=== PATIENT | male | born 1950 | race Hispanic/Latino ===

== ENCOUNTER → 2018-11-19 | Outpatient (CLI) | payer MEDICARE ==
[~2018-11-19] MED LIST: BRIMONIDINE TARTRATE OU; LATANOPROST OU; LISI40TA4 PO; METF-444 PO; SIMV40TA59 PO; TAMS0.4C32 PO; TIMOLOL MALEATE OU
== END | disposition home or self-care (01) ==
LOC: SHCH 10:23
PROVIDERS: ATTEND Internal Medicine Cardiovascular Disease
DX: I11.9 Hypertensive heart disease without heart failure (principal)
CPT/HCPCS: 93306

== ENCOUNTER 2022-11-20 16:45 | Emergency (ER) | payer MEDICARE, OTHER ==
[~2022-11-20] VITALS: Ht 180.3 cm; Wt 81.2 kg
[~2022-11-20 16:45] MED LIST changes: -LISI40TA4 PO; +LISI40TA9 PO
[2022-11-20 17:06] VITALS: BP 147/83
[2022-11-20] MEDS ORDERED: IBUP-2070 PO (19:48)
== END 2022-11-20 19:55 | disposition home or self-care (01) ==
LOC: EDH 16:45
DX: S01.81XA Laceration without foreign body of other part of head, initial encounter (principal); I10 Essential (primary) hypertension; E78.00 Pure hypercholesterolemia, unspecified; K21.9 Gastro-esophageal reflux disease without esophagitis; G20 Parkinson's disease; Z79.84 Long term (current) use of oral hypoglycemic drugs; Z79.899 Other long term (current) drug therapy; Z04.3 Encounter for examination and observation following other accident; Z98.890 Other specified postprocedural states; W18.39XA Other fall on same level, initial encounter; Y93.89 Activity, other specified; Y92.89 Other specified places as the place of occurrence of the external cause; Y99.8 Other external cause status
CPT/HCPCS: 12014; 70450; 72125

== ENCOUNTER 2022-12-27 09:27 | Emergency (ER) | payer OTHER ==
[~2022-12-27] VITALS: Ht 185.4 cm; Wt 80.7 kg
[~2022-12-27 09:27] MED LIST changes: +IBUP-2070 PO
[2022-12-27 10:19] VITALS: BP 138/62
[2022-12-27] MEDS ORDERED: OCTYL 2-CYANOACRYLATE 1 EACH TP SCH (10:30)
== END 2022-12-27 11:01 | disposition home or self-care (01) ==
LOC: EDH 09:27
DX: S01.81XA Laceration without foreign body of other part of head, initial encounter (principal); K21.9 Gastro-esophageal reflux disease without esophagitis; Y92.89 Other specified places as the place of occurrence of the external cause; E78.00 Pure hypercholesterolemia, unspecified; I10 Essential (primary) hypertension; Z79.84 Long term (current) use of oral hypoglycemic drugs; Z79.899 Other long term (current) drug therapy; W01.10XA Fall on same level from slipping, tripping and stumbling with subsequent striking against unspecified object, initial encounter; Y93.89 Activity, other specified; Y99.8 Other external cause status
CPT/HCPCS: 12013; 70450; 70486; 72125

== ENCOUNTER 2024-10-11 09:28 | Inpatient (IN) | payer OTHER ==
[~2024-10-11] VITALS: Ht 180.3 cm; Wt 73.2 kg
--- NOTE | 2024-10-11 09:52 | EKG ---
[facility] Test Date: 2024-10-11 Test Time: 09:41:07 Pat Name: JUNIOR MELLO Department: [facility] Room: ED Gender: M [employer]: [id number] : 1950 Requested By: RAJ AGUIRRE Order Number: [id number] Reading MD: Guido Dudley Measurements Intervals [place] Rate: 63 P: 30 [place]: 189 QRS: 3 QRSD: 108 T: 37 QT: 439 QTc: 452 Interpretive Statements Sinus rhythm Probable left ventricular hypertrophy Compared to ECG 07/17/2015 15:09:44 No significant changes Electronically Signed On 10-12-2024 12:47:17 CRUISE DIRECTOR by Guido Dudley Please click the below link to view image of tracing.
[2024-10-11 10:04] LABS: BASOPHILS # (AUTO) 0.05 K/uL (0.00-0.20); BASOPHILS % (AUTO) 0.2 % (0.0-5.0); HEMATOCRIT 46.9 % (42-54); IMMATURE GRANULOCYTE ABSOLUTE 0.19 K/uL (0-1); LYMPHOCYTES # (AUTO) 0.9 K/uL (1.0-4.8); LYMPHOCYTES % (AUTO) 3.6 % (21.0-51.0); MEAN CORPUSCULAR HEMOGLOBIN 32.4 pg (27.0-33.0); MEAN CORPUSCULAR HGB CONC 34.8 g/dL (32.0-36.0); MEAN CORPUSCULAR VOLUME 93.2 fL (79-99); MONOCYTES # (AUTO) 1.5 K/uL (0.1-1.0); MONOCYTES % (AUTO) 6.1 % (3.0-13.0); NEUTROPHILS # (AUTO) 21.7 K/uL (1.8-7.7); NEUTROPHILS % (AUTO) 89.3 % (40.0-77.0); PLATELET COUNT (AUTO) 183 K/uL (130-400); RED BLOOD CELL COUNT(AUTO) 5.03 MIL/uL (4.50-6.20); RED CELL DISTRIBUTION WIDTH 12.7 % (11.0-15.5); WHITE BLOOD COUNT (AUTO) 24.3 K/uL (4.8-10.8)
[2024-10-11 10:12] LABS: INR 1.29 (0.85-1.15); PROTHROMBIN TIME 13.3 SEC (9.6-11.6)
[2024-10-11 10:14] LABS: PARTIAL THROMBOPLASTIN TIME 30.5 SEC (26.3-35.5)
[2024-10-11 10:16] LABS: CREATININE 0.9 mg/dL (0.5-1.3); POTASSIUM 3.8 mmol/L (3.5-5.1)
[2024-10-11 10:33] LABS: B-TYPE NATRIURETIC PEPTIDE 124 pg/mL (0-100)
[2024-10-11 10:36] LABS: MAGNESIUM 2.1 mg/dL (1.80-2.40)
[2024-10-11 10:38] LABS: BAND NEUTROPHILS % (MANUAL) 19 % (0-2); LYMPHOCYTES % (MANUAL) 5 % (22-44); MAN.DIFF COMMENT-IMPRESSION MANUAL DIFFERENTIAL; MONOCYTES % (MANUAL) 3 % (2-9); PLATELET MORPHOLOGY COMMENT ADEQUATE; SEGMENTED NEUTROPHILS % 73 % (40-70); TOTAL CELLS COUNTED 100; WBC MORPHOLOGY CONSISTENT W/DIFF
[2024-10-11 10:48] LABS: ADD UA MICROSCOPIC YES; APPEARANCE,URINE HAZY (CLEAR); BILIRUBIN,URINE NEGATIVE (NEGATIVE); COLOR,URINE YELLOW (YELLOW); GLUCOSE, URINE (UA) NEGATIVE (NEGATIVE); KETONES,URINE 10 mg/dL (NEGATIVE); LEUKOCYTE ESTERASE ,URINE 500 Leu/uL (NEGATIVE); NITRATE,URINE NEGATIVE (NEGATIVE); OCCULT BLOOD,URINE LARGE (NEGATIVE); PH,URINE 5.5 (5.0-8.0); PROTEIN,URINE 100 mg/dL (NEGATIVE); UROBILINOGEN,URINE 0.2 mg/dL (0.2-1.0)
[2024-10-11 10:51] LABS: BACTERIA,URINE MANY /HPF (None Seen); MUCUS,URINE RARE LPF (None Seen); SQUAMOUS EPITHELIAL CELL,UR FEW /HPF (0-2); WBC,URINE TNTC /HPF (0-1)
--- NOTE | 2024-10-11 10:58 | ERN ---
General Chief Complaint: Mechanical Fall Stated Complaint: FALL Time Seen by MD: 09:29 Source: patient, EMS History of Present Illness Initial Comments Patient is a 74-year-old male coming in to be evaluated after he fell from the bed. Per EMS patient was found in the floor. 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 Patient was a complaining of any pain or discomfort. Allergies: Coded Allergies: No Known Drug Allergies (Verified Allergy, Unknown, 07/17/15) Home Meds Active Scripts Ibuprofen (Ibuprofen) 600 Mg Tablet, 600 MG PO Q6H PRN for PAIN, #16 TAB Prov:LYNDSEY HOWELL MD 11/20/22 Reported Medications [Timolol Maleate] No Conflict Check, 0.5 % OU BID 07/17/15 [Latanoprost] No Conflict Check, 0.005 % OU HS 07/17/15 [Brimonidine Tartrate] No Conflict Check, 0.2 % OU Q12H 07/17/15 Simvastatin (ZOCOR) 40 Mg Tablet, 40 MG PO HS, TAB 07/17/15 Tamsulosin HCl (Tamsulosin HCl) 0.4 Mg Cap.er.24h, 0.4 MG PO BID, CAPSULE.DR 07/17/15 Metformin HCl (Metformin HCl) 500 Mg Tablet, 500 MG PO BID, TAB 07/17/15 Lisinopril (Lisinopril) 40 Mg Tablet, 0.5 TAB PO DAILY, TAB 07/17/15 Past Medical History Past Medical History: Dementia, GERD, Hypertension, Other Medical History Other: LOEYS DIETS SYNDROME, PARKINSONS, BPH. Past Surgical History: Other Surgical History Other: BILATERAL KNEE REPLACEMENT Social History Social History: Negative, Lives with family ROS Dictation CONSTITUTIONAL: No chills, no fever, weakness, no diaphoresis, no malaise. HEAD/FACE: No signs of trauma. EENT: No eye pain, no blurred vision, no tearing, no double vision, no ear pain, no ear discharge, no nose pain, no nasal congestion, no throat pain, no throat swelling, no mouth pain. RESPIRATORY: No cough, no orthopnea, no SOB, no stridor, no wheezing. CARDIOVASCULAR: No chest pain, no edema, no palpitations, no syncope. GASTROINTESTINAL/ABDOMINAL: No abdominal pain, no constipation, no diarrhea, no nausea, no vomiting. GENITOURINARY: No abnormal discharge, no dysuria, no frequent urination, no hematuria. No complaints of pain in the genitals. MUSCULOSKELETAL: No back pain, no gout, no joint pain, no joint swelling, no muscle pain, no muscle stiffness, no neck pain. INTEGUMENTARY: No change in color, no change in hair/nails, no dryness, no lesion, no lumps, no rash. NEUROLOGICAL/PSYCH: No anxiety, not depressed, no emotional problem, no headache, no numbness, no pre-existing deficit, no history of seizures, no tremors, no weakness. HEMATOLOGIC/LYMPHATIC: Not anemic, no history of blood clots, no apparent bleeding, no bruising, glands not swollen. All Systems Negative, Except as Noted. Physical Exam Physical Exam Dictation VITAL SIGNS: Reviewed. GENERAL APPEARANCE: Alert, oriented 1, no acute distress, obese. HEAD AND FACE: Non-traumatic. EYES: PERRL, pink conjunctivas, eyelid no trauma, anterior chamber clear. EARS: Pinnas intact and no signs of trauma or erythema. Ear canals clear and no discharge. TMs no erythema. NOSE: No discharge, no bleeding. OROPHARYNX: Mouth normal, teeth no caries, tongue pink. Pharynx clear, no erythema. Tonsils no exudates, no abscesses noted. Mucous membrane moist. NECK: Supple, non-tender, no thyromegaly, no masses, no JVD, no bruits. BREAST: Deferred. CHEST: No tenderness, no crepitus, no paradoxical movement, no retractions. LUNGS: Clear, well-ventilated, symmetric, no rales, no wheezing, no rhonchi, no stridor, good breath sounds bilaterally. HEART: Regular rate, regular rhythm, no murmur, no gallops. VASCULAR: No peripheral edema. ABDOMEN: Soft, positive bowel sounds, nondistended, no guarding, nontender, no rebound, no masses no hepatomegaly, no splenomegaly, no Michelle's sign, no hernias. RECTAL: Deferred. GENITAL: Deferred. NEUROLOGICAL: Normal speech, gross motor function intact, gross sensory function intact. MUSCULOSKELETAL: Neck nontender, full range of motion, back nontender, full range of motion. EXTREMITIES: Nontender, full range of motion. SKIN: Color pink, dry, no turgor, no rash, no lacerations, no abrasions, no contusions. LYMPHATICS: Deferred. Results Laboratory and Microbiology Lab and Micro Result Laboratory Tests Test 10/11/24 09:54 10/11/24 10:32 10/11/24 11:55 White Blood Count 24.3 K/uL (4.8-10.8) H Red Blood Count 5.03 MIL/uL (4.50-6.20) Hemoglobin 16.3 g/dL (14.0-18.0) Hematocrit 46.9 % (42-54) Mean Corpuscular Volume 93.2 fL (79-99) Mean Corpuscular Hemoglobin 32.4 pg (27.0-33.0) Mean Corpuscular Hemoglobin Concent 34.8 g/dL (32.0-36.0) Red Cell Distribution Width 12.7 % (11.0-15.5) Platelet Count 183 K/uL (130-400) Mean Platelet Volume 10.0 fL (7.5-10.5) Immature Granulocyte % (Auto) 0.8 % (0-1) Neutrophils (%) (Auto) 89.3 % (40.0-77.0) H Lymphocytes (%) (Auto) 3.6 % (21.0-51.0) L Monocytes (%) (Auto) 6.1 % (3.0-13.0) Eosinophils (%) (Auto) 0.0 % (0.0-8.0) Basophils (%) (Auto) 0.2 % (0.0-5.0) Neutrophils # (Auto) 21.7 K/uL (1.8-7.7) H Lymphocytes # (Auto) 0.9 K/uL (1.0-4.8) L Monocytes # (Auto) 1.5 K/uL (0.1-1.0) H Eosinophils # (Auto) 0.00 K/uL (0.00-0.70) Basophils # (Auto) 0.05 K/uL (0.00-0.20) Absolute Immature Granulocyte (auto 0.19 K/uL (0-1) Segmented Neutrophils % 73 % (40-70) H Band Neutrophils % 19 % (0-2) H Lymphocytes % (Manual) 5 % (22-44) L Monocytes % (Manual) 3 % (2-9) Nucleated Red Blood Cells 0.0 % (0.0-0.19) Differential Comment MANUAL DIFFERENTIAL White Cell Morphology Comment CONSISTENT W/DIFF Platelet Morphology Comment ADEQUATE Red Blood Cell Morphology ANISO 1+ Prothrombin Time 13.3 SEC (9.6-11.6) H Prothromb Time International Ratio 1.29 (0.85-1.15) H Activated Partial Thromboplast Time 30.5 SEC (26.3-35.5) Sodium Level 135 mmol/L (136-145) L Potassium Level 3.8 mmol/L (3.5-5.1) Chloride Level 99 mmol/L (101-111) L Carbon Dioxide Level 33 mmol/L (21-32) H Blood Urea Nitrogen 25 mg/dL (7-18) H Creatinine 0.9 mg/dL (0.5-1.3) Glomerular Filtration Rate Calc 89 mL/min (>90) Random Glucose 135 mg/dL (70-105) H Total Calcium 9.2 mg/dL (8.5-10.1) Magnesium Level 2.10 mg/dL (1.80-2.40) Total Creatine Kinase 5303 U/L (21-232) *H Troponin I High Sensitivity 75 ng/L (4-75) B-Type Natriuretic Peptide 124 pg/mL (0-100) H Urine Color YELLOW (YELLOW) Urine Appearance HAZY (CLEAR) Urine pH 5.5 (5.0-8.0) Urine Specific Strum 1.026 (1.001-1.031) Urine Protein 100 mg/dL (NEGATIVE) H Urine Glucose (UA) NEGATIVE mg/dL (NEGATIVE) Urine Ketones 10 mg/dL (NEGATIVE) H Urine Occult Blood LARGE (NEGATIVE) H Urine Nitrate NEGATIVE (NEGATIVE) Urine Bilirubin NEGATIVE mg/dL (NEGATIVE) Urine Urobilinogen 0.2 mg/dL (0.2-1.0) Urine Leukocyte Esterase 500 Ashwini/uL (NEGATIVE) H Urine RBC 6-10 /HPF (0-1) H Urine WBC TNTC /HPF (0-1) H Urine Squamous Epithelial Cells FEW /HPF (0-2) Urine Bacteria MANY /HPF (None Seen) Lactic Acid Level 1.8 mmol/L (0.8-2.5) Labs Reviewed?: Yes EKG/XRAY/US/CT/MRI X-RAY Comment Chest x-ray-NAD CT Scan Comment [id number] [id number] IMAGING REPORT Signed PATIENT: JUNIOR MELLO MR#: [id number] : 1950 SEX: M AGE: 74 LOCATION: [facility] ORDER 11 STATUS: REG REPORT#: [id number] SERVICE 111 REASON: fall ORDERING PHYSICIAN: RAJ AGUIRRE MD PROCEDURE: HEAD WO - CT HEAD/BRAIN W/O CONTRAST CT HEAD WITHOUT CONTRAST INDICATION: Fall TECHNIQUE: Noncontrast axial helical CT images from the vertex through the skull base using 5 mm slice thickness without contrast material. Coronal and sagittal reconstructions were also included. Dose reduction techniques was used using integrated, automated and adaptive dose reduction exposure control. CT was performed with one or more of the following dose reduction techniques: Automated exposure control, adjustment of the mA and/or kV according to patient size, or use of iterative reconstruction technique. COMPARISON: 12/27/2022 FINDINGS: Scattered and coalescent subcortical and periventricular white matter low attenuating areas likely represent residual of chronic small vessel arteriopathy and/or remote vascular insult. Generalized mild cerebral cortical atrophy is present.. No evidence for abnormal extra-axial fluid collections or masses. Cavum septum pellucidum as an incidental finding and normal variant. No evidence for hydrocephalus. No evidence for intracranial parenchymal, epidural, or subdural hemorrhage, mass effect or midline shift. The duke-white matter differentiation is well preserved. No secondary evidence to suggest acute ischemia. Mild calcific plaque is present along the horvath of the cavernous segments of both internal carotid arteries. The brainstem and cerebellum appear normal. The visualized orbits appear unremarkable. The visible paranasal sinuses and mastoid air cells are clear. The calvarium appears normal. IMPRESSION: Chronic white matter ischemic changes, mild brain atrophy, and arteriosclerotic disease as described, without acute component. DICTATED BY: TONY DE LA GARZA MD DATE: 10/11/241201 ELECTRONICALLY SIGNED BY: TONY DE LA GARZA MD DATE: 10/11/24 1208 [facility] MDM: Differential diagnosis: Rhabdomyolysis, UTI, sepsis, Rationale: Tests considered and ordered secondary to shared decision making include: labs, ECG and radiology Previous outside records reviewed: Old ER visits. Risk of complication and/or morbidity or mortality of patient management: None Medications-Per medication reconciliation Need for hospitalization: Patient does meet criteria for hospitalization. Need for emergency major/minor surgery: No There are no social concerns with this patient. Prescription drug management Prescriptions will include symptomatic care Patient's prior external medical records from other ER visits were reviewed by me as indicated. Prior testing and results from previous visits were reviewed. Prior tests were taken into account with medical decision making and resource utilization, independent historian/historians were used to obtain complete medical history. I independently interpreted the test that were performed, results were reviewed by me and considered findings on radiology if ordered. Medical management and examination interpretation discussions were had by me with other qualified healthcare professionals as indicated for the patient's care. She will be admitted under the care of hospitalist group for ongoing management. ED Course Orders Procedure Category Date Status Time Cbc With Differential LAB 10/11/24 Complete 09:38 Prothrombin Time With LAB 10/11/24 Complete INR 09:38 B-Type Natriuretic LAB 10/11/24 Complete Peptide 09:38 Chest 1vw RAD 10/11/24 Resulted 09:38 12 Lead Ekg Tracing- EKG 10/11/24 Complete Technical 09:38 Magnesium LAB 10/11/24 Complete 09:38 Creatine Kinase, Total LAB 10/11/24 Complete 09:38 Troponin I High LAB 10/11/24 Complete Sensitivity 09:38 Urinalysis Profile LAB 10/11/24 Complete 09:38 Partial LAB 10/11/24 Complete Thromboplastin Time 09:38 Basic Metabolic Panel LAB 10/11/24 Complete 09:38 Manual Differential LAB 10/11/24 Complete 09:54 Culture Urine HARMEET 10/11/24 In Process 10:48 Blood Cult HARMEET 10/11/24 In Process 10:59 Culture Urine HARMEET 10/11/24 Logged 10:59 0.9%Nacl 1000ml (Ns PHA 10/11/24 In Process 1000ml) 11:00 Lactic Acid LAB 10/11/24 Complete 10:59 Ceftriaxone 1g Vial PHA 10/11/24 Complete (Rocephine 1g Inj) 11:00 Ct Head/Brain W/O CT 10/11/24 Resulted Contrast 11:12 Vital Signs(Adult CPOE 10/11/24 Transmitted Hospitalist) 12:23 Nurse To Enter Home CPOE 10/11/24 Transmitted Medication 12:23 Admit Orders ADM 10/11/24 Transmitted 12:23 Telemetry Monitoring CPOE 10/11/24 Transmitted 12:23 Nothing By Mouth DIET 10/11/24 Transmitted Lunch Famotidine 20mg Vial PHA 10/11/24 In Process (Pepcid 20mg Vial) 21:00 0.9%Nacl 1000ml (Ns PHA 10/11/24 In Process 1000ml) 12:30 *Nursing CPOE 10/11/24 Transmitted Communication: 12:23 Respiratory Cult HARMEET 10/11/24 Logged W/Gram Stain 12:23 Influenza Type A & B, LAB 10/11/24 Logged Rapid 12:23 Covid Rna Naat LAB 10/11/24 Logged 12:23 Zosyn 3.375gm+Ns 50ml PHA 10/11/24 In Process (Zosyn 3.375gm+Ns 13:00 0.9%Nacl 50ml (Ns PHA 10/11/24 Complete 50ml) 13:00 Acetaminophen 500mg PHA 10/11/24 In Process Tab (Tylenol 500mg T 12:30 Kane Prov. Neuro CONPHYSVC 10/11/24 Transmitted Consult 12:23 *Nursing CPOE 10/11/24 Transmitted Communication: 12:23 Pulmonology Consult CONPHYSVC 10/11/24 Transmitted 12:23 Albuterol 0.083% PHA 10/11/24 In Process 2.5mg/3ml (Proventil 12:30 Ct Abdomen/Pelvis W/O CT 10/11/24 Logged Contrast 12:23 Echo 2-D Complete ECHO 10/11/24 Logged 12:23 Arterial Blood Gas + RT 10/11/24 Transmitted 12:29 Current Medications Medications (Trade) Dose Ordered Sig/Edgar Route PRN Reason Start Time Stop Time Status Last Admin Dose Admin Acetaminophen (TYLenol 500MG TAB) 500 mg Q6H PRN PO MILD PAIN (1-3) 10/11/24 12:30 11/10/24 12:29 Albuterol Sulfate (Proventil 0.083% 2.5mg/3ml) 2.5MG Q6H PRN IH SHORTNESS OF BREATH 10/11/24 12:30 11/10/24 12:29 Ceftriaxone Sodium (ROCEphine 1G INJ) 1 gm ONCE ONCE IVPB 10/11/24 11:00 10/11/24 11:02 DC 10/11/24 11:32 Famotidine (Pepcid 20mg Vial) 20 mg BID IV 10/11/24 21:00 11/10/24 20:59 Piperacillin Sod/ Tazobactam Sod (Zosyn 3.375gm+NS 50ml) 3.375 gm Q8H IVPB 10/11/24 13:00 10/21/24 12:59 Sodium Chloride 1,000 ml @ 125 mls/hr Q8H IV 10/11/24 12:30 11/10/24 12:29 Sodium Chloride 2,448 ml @ 816 mls/hr ONCE ONCE IV 10/11/24 11:00 10/11/24 13:59 10/11/24 11:32 Sodium Chloride (NS 50ml) 50 ml AD IV 10/11/24 13:00 10/11/24 12:35 DC Vital Signs Date Time Temp Pulse Resp B/P (MAP) Pulse Ox O2 Delivery O2 Flow Rate FiO2 10/11/24 12:19 99.0 62 20 116/54 93 Nasal Cannula* 2 28 10/11/24 09:29 97.5 66 16 119/67 96 Room Air 0 Critical Care Note Comments Critical Care Procedure Note Authorized and Performed by: me Total critical care time: Approximately 36 minutes Due to a high probability of clinically significant, life threatening deterioration, the patient required my highest level of preparedness to intervene emergently and I personally spent this critical care time directly and personally managing the patient. This critical care time included obtaining a history; examining the patient; pulse oximetry; ordering and review of studies; arranging urgent treatment with development of a management plan; evaluation of patient's response to treatment; frequent reassessment; and, discussions with other providers. This critical care time was performed to assess and manage the high probability of imminent, life-threatening deterioration that could result in multi-organ failure. It was exclusive of separately billable procedures and treating other patients and teaching time. Please see MDM section and the rest of the note for further information on patient assessment and treatment. DX & DISP Disposition: Inpatient Decision to Admit Time: 12:45 Departure Impression: Primary Impression: Sepsis Additional Impressions: UTI (urinary tract infection), Rhabdomyolysis Condition: Stable Referrals: NATHAN ESTES (PCP) RAJ AGUIRRE MD Oct 11, 2024 10:58
--- NOTE | 2024-10-11 11:01 | HMCIMG ---
PORTABLE CHEST RADIOGRAPH INDICATION: cp COMPARISON: 07/17/2015 FINDINGS: cardiac monitor leads overlie the field of view. Heart size is normal. The pulmonary vascularity and jacinto appear normal. No abnormal pulmonary parenchymal opacity or consolidation identified. No significant pleural effusion noted. No pneumothorax detected. IMPRESSION: No radiographic evidence for any acute cardiopulmonary process.
[2024-10-11] MEDS: 0.9%NACL 1000ML 2,448 ML IV ONE (11:32)
[2024-10-11] MEDS: cefTRIAXone 1G VIAL IVPB ONE (11:32)
--- NOTE | 2024-10-11 12:04 | NUR ---
PT DROPPED OFF BY EMS, PT ON ARRIVAL DID NOT HAVE IV ESTABLISHED, WAS NOT GIVEN REASON TO WHY. PT WAS LETHARIC ON ARRIVAL TO ROOM NOT RESPONDING.
--- NOTE | 2024-10-11 12:08 | HMCIMG ---
CT HEAD WITHOUT CONTRAST INDICATION: Fall TECHNIQUE: Noncontrast axial helical CT images from the vertex through the skull base using 5 mm slice thickness without contrast material. Coronal and sagittal reconstructions were also included. Dose reduction techniques was used using integrated, automated and adaptive dose reduction exposure control. CT was performed with one or more of the following dose reduction techniques: Automated exposure control, adjustment of the mA and/or kV according to patient size, or use of iterative reconstruction technique. COMPARISON: 12/27/2022 FINDINGS: Scattered and coalescent subcortical and periventricular white matter low attenuating areas likely represent residual of chronic small vessel arteriopathy and/or remote vascular insult. Generalized mild cerebral cortical atrophy is present.. No evidence for abnormal extra-axial fluid collections or masses. Cavum septum pellucidum as an incidental finding and normal variant. No evidence for hydrocephalus. No evidence for intracranial parenchymal, epidural, or subdural hemorrhage, mass effect or midline shift. The duke-white matter differentiation is well preserved. No secondary evidence to suggest acute ischemia. Mild calcific plaque is present along the horvath of the cavernous segments of both internal carotid arteries. The brainstem and cerebellum appear normal. The visualized orbits appear unremarkable. The visible paranasal sinuses and mastoid air cells are clear. The calvarium appears normal. IMPRESSION: Chronic white matter ischemic changes, mild brain atrophy, and arteriosclerotic disease as described, without acute component.
--- NOTE | 2024-10-11 12:30 | HP ---
[facility] HISTORY AND PHYSICAL Date of Service: Oct 11, 2024 Time of Service: 12:30 HISTORY OF PRESENT ILLNESS: 74-year-old male with past medical history of Lewy body dementia, hyperlipidemia presented to the hospital secondary to generalized weakness. Patient is not communicating at bedside. He moans when asked about his name. Majority of history is obtained from patient's history are and chart review. Patient was diagnosed with Lewy body dementia in 2017 and since then has had disease progression. He does ambulate at home and is able to feed himself. Per sister he does communicate somewhat at home. He was found to have unwitnessed. Sister is unaware of how the fall happened. Patient was found lying on the floor. He is unable to give any history. Sister denied any fevers but noted cough with sputum production. Denied any changes in his urination and bowel movement. He was previously seeing a neurologist in [place]. He is currently on carbidopa and levodopa for his underlying Lewy body dementia. His history is limited since he is not able to participate in conversation. In the ED labs were notable for white count of 24.3, hemoglobin was 16 point three, platelet count was 183k, sodium was 135, potassium was 3.8, chloride was 99, bicarb was 33, total CK was 5303, troponin was 75, BNP was [address] head which was negative. Patient underwent a chest x-ray which was negative REVIEW OF SYSTEMS ROS is limited since patient is unable to participate in conversation PAST MEDICAL HISTORY: Lewy body dementia, hyperlipidemia PAST SURGICAL HISTORY: History of knee surgery PAST SOCIAL HISTORY: Denied any smoking, alcohol, drug use FAMILY HISTORY: Denied any pertinent family history Coded Allergies: No Known Drug Allergies (Verified Allergy, Unknown, 07/17/15) PHYSICAL EXAM GENERAL APPEARANCE: Patient appears lethargic at bedside. Moans when asked about his name NEUROLOGICAL: Patient does not follow commands for neurological exam. Patient has tremors in the upper extremity HEENT: Face is symmetric. Pupils are equal and reactive. Extraocular movements are intact. NECK: Supple. No JVD. No thyromegaly. No submental, submandibular, pre- /postauricular, occipital or supraclavicular lymphadenopathy. CHEST: Normal chest expansion. No Telemetry. LUNGS: Absence of any rales, rhonchi or any wheezing. CARDIOVASCULAR: Regular. S1 and S2 normal. No appreciable rubs, murmurs or gallops. ABDOMEN: Soft, nontender, and nondistended. There is no rebound, voluntary guarding, or rigidity. : Deferred. No Friedman. EXTREMITIES: Non-edematous and not cyanotic. No clubbing. Good capillary refill. SKIN: No skin breakdown. Vital Sign (Last 24 Hours) 10/11/24 12:19 Temp 99.0 Pulse 62 Resp 20 B/P (MAP) 116/54 Pulse Ox 93 O2 Delivery Nasal Cannula* O2 Flow Rate 2 FiO2 28 LABS: Laboratory: Test 10/11/24 11:55 10/11/24 10:32 10/11/24 09:54 Range/Units Lactic Acid Level 1.8 0.8-2.5 mmol/L Urine Color YELLOW YELLOW Urine Appearance HAZY CLEAR Urine pH 5.5 5.0-8.0 Urine Specific Louann 1.026 1.001-1.031 Urine Protein 100 H NEGATIVE mg/dL Urine Glucose (UA) NEGATIVE NEGATIVE mg/dL Urine Ketones 10 H NEGATIVE mg/dL Urine Occult Blood LARGE H NEGATIVE Urine Nitrate NEGATIVE NEGATIVE Urine Bilirubin NEGATIVE NEGATIVE mg/dL Urine Urobilinogen 0.2 0.2-1.0 mg/dL Urine Leukocyte Esterase 500 H NEGATIVE Ashwini/uL Urine RBC 6-10 H 0-1 /HPF Urine WBC TNTC H 0-1 /HPF Urine Squamous Epithelial Cells FEW 0-2 /HPF Urine Bacteria MANY None Seen /HPF White Blood Count 24.3 H 4.8-10.8 K/uL Red Blood Count 5.03 4.50-6.20 MIL/uL Hemoglobin 16.3 14.0-18.0 g/dL Hematocrit 46.9 42-54 % Mean Corpuscular Volume 93.2 79-99 fL Mean Corpuscular Hemoglobin 32.4 27.0-33.0 pg Mean Corpuscular Hemoglobin Concent 34.8 32.0-36.0 g/dL Red Cell Distribution Width 12.7 11.0-15.5 % Platelet Count 183 130-400 K/uL Mean Platelet Volume 10.0 7.5-10.5 fL Immature Granulocyte % (Auto) 0.8 0-1 % Neutrophils (%) (Auto) 89.3 H 40.0-77.0 % Lymphocytes (%) (Auto) 3.6 L 21.0-51.0 % Monocytes (%) (Auto) 6.1 3.0-13.0 % Eosinophils (%) (Auto) 0.0 0.0-8.0 % Basophils (%) (Auto) 0.2 0.0-5.0 % Neutrophils # (Auto) 21.7 H 1.8-7.7 K/uL Lymphocytes # (Auto) 0.9 L 1.0-4.8 K/uL Monocytes # (Auto) 1.5 H 0.1-1.0 K/uL Eosinophils # (Auto) 0.00 0.00-0.70 K/uL Basophils # (Auto) 0.05 0.00-0.20 K/uL Absolute Immature Granulocyte (auto 0.19 0-1 K/uL Segmented Neutrophils % 73 H 40-70 % Band Neutrophils % 19 H 0-2 % Lymphocytes % (Manual) 5 L 22-44 % Monocytes % (Manual) 3 2-9 % Nucleated Red Blood Cells 0.0 0.0-0.19 % Differential Comment MANUAL DIFFERENTIAL White Cell Morphology Comment CONSISTENT W/DIFF Platelet Morphology Comment ADEQUATE Red Blood Cell Morphology ANISO 1+ Prothrombin Time 13.3 H 9.6-11.6 SEC Prothromb Time International Ratio 1.29 H 0.85-1.15 Activated Partial Thromboplast Time 30.5 26.3-35.5 SEC Sodium Level 135 L 136-145 mmol/L Potassium Level 3.8 3.5-5.1 mmol/L Chloride Level 99 L 101-111 mmol/L Carbon Dioxide Level 33 H 21-32 mmol/L Blood Urea Nitrogen 25 H 7-18 mg/dL Creatinine 0.9 0.5-1.3 mg/dL Glomerular Filtration Rate Calc 89 >90 mL/min Random Glucose 135 H 70-105 mg/dL Total Calcium 9.2 8.5-10.1 mg/dL Magnesium Level 2.10 1.80-2.40 mg/dL Total Creatine Kinase 5303 *H 21-232 U/L Troponin I High Sensitivity 75 4-75 ng/L B-Type Natriuretic Peptide 124 H 0-100 pg/mL Current Medications Medications (Trade) Dose Ordered Sig/Edgar Route PRN Reason Start Time Stop Time Status Last Admin Dose Admin Acetaminophen (TYLenol 500MG TAB) 500 mg Q6H PRN PO MILD PAIN (1-3) 10/11/24 12:11/10/24 12:29 UNV Albuterol Sulfate (Proventil 0.083% 2.5mg/3ml) 2.5MG Q6H PRN IH SHORTNESS OF BREATH 10/11/24 12:30 11/10/24 12:29 UNV Famotidine (Pepcid 20mg Vial) 20 mg BID IV 10/11/24 21:00 11/10/24 20:59 UNV Piperacillin Sod/ Tazobactam Sod (Zosyn 3.375gm+NS 50ml) 3.375 gm Q8H IVPB 10/11/24 13:00 10/21/24 12:59 UNV Sodium Chloride 1,000 ml @ 125 mls/hr Q8H IV 10/11/24 12:30 11/10/24 12:29 UNV Sodium Chloride (NS 50ml) 50 ml AD IV 10/11/24 13:00 11/10/24 12:59 UNV DIAGNOSTICS / RADIOLOGY: [ ] ASSESSMENT: Fall POA Rhabdomyolysis POA Possible URI with associated sputum production vs Aspiration Pneumonia UTI POA Possible sepsis secondary to UTI AMS likely in setting of metabolic/infectious etiology Lewy body dementia Hyperlipidemia Debility Diabetes mellitus type 2 PLAN: - patient to be admitted to PCCU - in reference to UTI. Patient will be started on Zosyn. Follow up on urine cultures for antibiotic deescalation. - reference to rhabdomyolysis. Patient will be started on NS for hydration. Trend CK. We will obtain PT evaluation. -in reference to AMS. Concern if patient has progression of Lewy body dementia with worsening mentation in setting of UTI and rhabdomyolysis. We will request tele neurology consultation -obtain a speech eval for swallow evaluation. Obtain a sputum sample. We will request pulmonology consultation. -obtain home medications which will be reconciled once available. Patient will be NPO for now -obtain administrator social welfare consultation. Patient's sister states family is leaning towards DNR DNI. Patient does not have a POA. We will request administrator social welfare consult to help with determining the power of assistant district attorney. Advanced Care Planning Which of the following were discussed: Hospice care: Yes __ No _x_ Therapeutic options: Yes __ No __ Advance directives: Yes __ No __ Other discussions: Will consult administrator social welfare for POA. Discussed with who?: Pt's sister (Patient, family or surrogates) Voluntary nature of this service was explained to the patient? Yes _x_ No __ Amount of time spent: 25 minutes RAFFI Richards MD, MD Oct 11, 2024 12:30
[2024-10-11] MEDS ORDERED: 0.9%NACL 50ML IV SCH (13:00)
[2024-10-11 13:02] VITALS: PULSE 80; RESP 20; O2SAT 96
[2024-10-11] MEDS: acetaMINOPHEN 500 MG TABLET PO PRN (13:02)
[2024-10-11 13:03] LABS: ABG BASE EXCESS 0.4 mmol/L (-2.0-3.0); ABG HCO3 23.8 mmol/L (21.0-28.0); ABG OXYGEN SATURATION 98.7 % (94.0-98.0); ABG PCO2 35 mmHg (35-48); ABG PH 7.451 (7.350-7.450); CARBON MONOXIDE 0.6 % (0.5-1.5); DEVICE COMMENT VERO RN RR; HHb 1.3; PO2, ARTERIAL BG 139.3 mmHg (83.0-108.0); VENT MODE, BG NRB (ROOM AIR)
[2024-10-11 13:06] LABS: INFLUENZA TYPE A Negative For Type A (NEGATIVE); INFLUENZA TYPE B Negative For Type B (NEGATIVE)
[2024-10-11] MEDS: 0.9%NACL 1000ML 1,000 ML IV SCH (13:07)
[2024-10-11] MEDS: ZOSYN 3.375GM +NS 50ML IVPB SCH (13:07)
[2024-10-11 13:23] LABS: SARS-CoV-2, RNA, NAAT NEGATIVE SARS CoV-2 (NEGATIVE)
[2024-10-11] MEDS: ketOROlac 15MG/ML VIAL (15MG/ML) IV ONE (13:31)
[2024-10-11 13:32] LABS: HEMOGLOBIN A1C 5.4 % (4.0-6.0)
[2024-10-11 13:43] LABS: THYROID STIMULATING HORMONE 0.5 uIU/mL (0.36-3.74)
--- NOTE | 2024-10-11 13:59 | CONS ---
CONSULT NOTE: [facility] Note # Demographics Consult Type: General Neurology Patient Location: Emergency Room First Name: HOMER Last Name: RIAZ Date of : 1950 Age: 74 Gender: Male Facility: [facility] Time of Initial Page (Central Time): 10/11/2024 13:38 Time of Return Call (Central Time): 10/11/2024 13:38 # HPI History: 74 y/o M with hx of Lewy Body Dementia who presented with generalized weakness, unwitnessed fall. CT head was negative. Also found to have a UTI. # Scores Time of exam and NIHSS (Central Time): 10/11/2024 13:54 Level of Consciousness 1a: [2] = Not alert; requires strong or painful stim LOC Questions 1b: [2] = Answers neither correctly LOC Commands 1c: [2] = Performs neither correctly Best Gaze 2: [0] = Normal Visual 3: [0] = No visual loss Facial Palsy 4: [0] = Normal symmetrical movements Motor Arm Left 5a: [2] = Some effort against gravity Motor Arm Right 5b: [2] = Some effort against gravity Motor Leg Left 6a: [2] = Some effort against gravity Motor Leg Right 6b: [2] = Some effort against gravity Limb Ataxia 7: [0] = Absent Sensory 8: [0] = Normal Best Language 9: [2] = Severe aphasia Dysarthria 10: [2] = Severe dysarthria Extinction and Inattention 11: [0] = No abnormality NIHSS Total: 18 # Exam Vitals: vital signs reviewed SBP: 116 DBP: 54 Additional Neurologic Exam: Wakes to painful stimuli and moves all extremities. Gaze conjugate but not following commands. Speech is limited to moans. # Data Other Labs: WBC 24.3 CRP 229.8 CK 5303 Lactate 1.8 UA abnormal Flu/COVID neg Head CT: - no bleed - per radiologist read # Assessment Impression: - Altered Mental Status Favor encephalopathy due to infection over acute ischemic stroke or rapid Lewy Body progression. Certainly the Lewy Body disease makes him more susceptible to encephalopathy # Plan Thrombolytic/Intervention: NOT IV Thrombolysis or IA Intervention candidate Thrombolytic Exclusion: > 4.5 hours Intraarterial Exclusion: doubt LVO based on clinical presentation Other: - If patient has any neurological deterioration please call me back immediately - I have discussed my recommendations with the referring provider Additional Recommendations: Treatment of infection per ED/Primary. Consider brain MRI if not returning to baseline as infection is cleared. # Logistics Attestation of consult completion: The patient is located at: [facility]. Facility staff participated in the visit. I performed this telemedicine visit from my offsite office utilizing interactive 2 way audio and visual telecommunication technology. Total time spent in telemedicine encounter: I spent 20 minutes reviewing clinical data and/or imaging, obtaining history, examining the patient, communicating with the onsite care team, and in preparation of this report. # Demographics First Name: HOMER Last Name: MELLO Facility: [facility] ELIZABETH BECERRA MD Oct 11, 2024 13:59
--- NOTE | 2024-10-11 14:43 | NUR ---
DCP: NH PLACEMENT SONS- MELANIE MELLO [phone] GONZALEZ [phone] FLORENCIO met with pt's sister Gretchen [phone]. Sister states she assists pt's disabled son Max to care for pt. Prior to fall, pt was able to walk and do some things for himself with assistance. Now sister reports that pt is total care and bed bound. Sister states she can no longer care for pt and her 97yro mother. Sister feels pt should be DNR/DNI and needs NH placement. FLORENCIO explained to sister that since there is no MPOA, we need marjority of the adult children to agree to treatment/ placement. Sister provider # for pt's son Melanie and Gonzalez who live in . Son Jose Cruz is disabled mentally and would not be decision maker. Florencio left message for sons. Addendum: 10/11/24 at 1532 by MARIANA HOLDER Amended: Links added.
--- NOTE | 2024-10-11 14:57 | HMCIMG ---
CT ABDOMEN WITHOUT CONTRAST. CT PELVIS WITHOUT CONTRAST. INDICATION: Right upper abdominal pain after fall TECHNIQUE: Routine transaxial imaging using 5 mm slice thickness through the abdomen and pelvis without the administration of IV contrast. Thin slice reconstructions are also provided. Coronal and sagittal reformatted images acquired for interpretation. CT was performed with one or more of the following dose reduction techniques: Automated exposure control, adjustment of the mA and/or kV according to patient size, or use of iterative reconstruction technique. COMPARISON: None FINDINGS: ON NONCONTRAST IMAGING: ABDOMEN: Heart size is normal. Minimal bibasilar lung dependent atelectasis. No abnormal renal calcifications, hydronephrosis, perinephric inflammation, or proximal hydroureter detected. The liver is normal in size and smooth in contour without biliary duct dilation. The spleen is normal in size and attenuation. A couple of subcentimeter calcific gallbladder neck stones. Gallbladder slightly distended.. Punctate calcification within the pancreatic head near the distal common bile duct on axial image 60 of series 2. The pancreas appears otherwise normal without pancreatic duct dilation. The adrenal glands appear normal. No significant abdominal, retrocrural or retroperitoneal adenopathy noted. No evidence for intra-abdominal free air or organized fluid collection. No aortic aneurysmal dilation identified. PELVIS: Mild urinary bladder wall thickening is more than expected for degree of incomplete distention. No evidence for free air or organized pelvic fluid collection. No significant pelvic adenopathy detected. Extensive stool burden. Several diverticula along the sigmoid colon. Terminal ileum appears unremarkable. The appendix appears normal. Mild thoracolumbar spondylosis includes shallow lumbar dextroscoliosis. IMPRESSION: 1. Cholelithiasis and mild gallbladder distention, including punctate calcification within the pancreatic head near the far distal common bile duct, but no evidence for biliary duct dilation. 2. Sigmoid diverticulosis and constipation. 3. Mild urinary bladder wall thickening, more than expected for degree of incomplete distention. Correlation with urine studies is recommended.
--- NOTE | 2024-10-11 15:32 | NUR ---
DCP; [facility] Ivan recd calls from both sons Melanie and Gonzalez. Both son stated they wanted pt to remain FULL CODE and Intubated if needed. Son Melanie stated that pt told him that if time came he needed a NH, that that was what his savings and money was for. Son states that he feels pt is needing NH placement. SW informed son that aunt Gretchen states pt is too much care for her and she can't do it anymore. Son states that pt's son Max, who lives with pt has mental capacity of a 13yro. Encouraged sons to speak with their aunts and come see pt if possible. Sons gave verbal consent for placement at [facility].
--- NOTE | 2024-10-11 16:08 | NUR ---
Per Martha at [place], pt is not service connected.
--- NOTE | 2024-10-11 16:10 | NUR ---
Son Melanie called and stated he has been thinking about it and feels pt should be DNR. Melanie to speak to Gonzalez and call pt's nurse Katie with decision.
--- NOTE | 2024-10-11 17:20 | HMCIMG ---
ULTRASOUND ABDOMEN LIMITED INDICATION: Right upper abdominal pain COMPARISON: None FINDINGS: The liver is normal in size and echogenicity; no focal lesion demonstrated. Main portal vein is patent, and normal direction of vascular flow demonstrated. The common bile duct diameter measures 3.0 mm. Echogenic shadowing stones and sludge within the gallbladder lumen and gallbladder distention, without pericholecystic fluid. No sonographic Michelle's sign elicited by the ultrasound paraffin machine operator. Wall thickness measures 1.0 mm. Visible portions of the pancreas appear normal. The right kidney measures 11.8 x 5.3 x 4.0 cm,and is normal in echogenicity, without evidence for hydronephrosis.No shadowing stones demonstrated. No free fluid demonstrated. IMPRESSION: Cholelithiasis and gallbladder distention without cholecystitis at this juncture.
--- NOTE | 2024-10-11 18:12 | NUR ---
1810 SPOKE TO LIZZETH SON AGREED TO DNR , VERBALLY AGREED ON PHONE. [facility] [address] [facility] , STATED HE WANTS FATHER TO BE FULL CODE. ANDREA FINAL DECISION TO BE CALLED ([phone]) BE TO REMAIN FULL CODE.
[2024-10-11] MEDS: SODIUM CHLORIDE 3% FOR INHALATION 4 ML/AMP VIAL.NEB IH ONE (18:26)
--- NOTE | 2024-10-11 19:19 | CONS ---
[facility] CONSULTATION NOTE Date Patient Seen: Oct 11, 2024 Time of Visit: 19:16 Supervising Physician: Dr David Cr Reason for Consultation: Episodic Apnea/ ACUTE HYPOXIC RESPIRATORY FAILURE Consulting Physician: Dr Tovar Outpatient Specialists: [ ] Inpatient Consults: [facility] PROBLEM LIST: Acute hypoxic respiratory failure POA Episodic apnea, POA Severe sepsis, POA Urinary tract infection, POA Possible aspiration pneumonia Lewy body dementia, diagnosed 2017 Alteration in mental status Feeding difficulty in adult, POA PLAN: Admit per primary Continue O2 therapy Keep O2 saturation above 90% Pulmonary toilet DuoNeb q.6 Aspiration precautions Keep head of bed above 30 NGT for PO access Recommend Palliative care consult-spoke to sister present at bedside, family decided to make him DNR/DNI, and currently discussing possibility of hospice/comfort care. Continue antibiotics per primary HPI: 74-year-old male with past medical history of Lewy body dementia, hyperlipidemia who presented to ED via EMS with complaint of alteration in mental status and ground level fall and found to have severe sepsis, and urinary tract infection. Per report EMS was activated by sister after patient was found down at home with altered mental status. At that time patient was with his disabled child. In ED stat head CT was done showed no acute intracranial abnormality, chest x- ray was done showed new acute pulmonary infiltrates. [place] [address], COVID and flu tests were negative, however his procalcitonin level is 1.4, with UA positive for leuko esterase. Patient was subsequently started on antibiotics and was given IV fluids for sepsis protocol. While in ED patient had episodes of apnea with desaturation requiring O2 therapy. [facility] pulmonology was then asked to evaluate for episodic apnea and acute hypoxic respiratory failure. Patient was seen and examined in ED with sister present at bedside. At present patient is currently encephalopathic, will open eyes to stimulation but will not follow commands or able to converse. Patient is currently on non-rebreather with O2 saturation of 100%. On auscultation there is scattered coarse lung sounds bilaterally. Was informed by sister that his two sons who were in [place] decided to make patient DNR/DNI and opted not to pursue aggressive medical management with patient. At this time I mentioned about hospice care/palliative care to sister. She says that she will call her nephews and will discuss this intently and will inform nursing staff once they have decided to pursue this route. PAST MEDICAL HX: see above PAST SURGICAL HX: noncontributory SOCIAL HISTORY: No tobacco, ETOH, or illicit drug use Coded Allergies: No Known Drug Allergies (Verified Allergy, Unknown, 07/17/15) REVIEW OF SYSTEMS: Unable to obtain due to alteration in mental status PHYSICAL EXAM: GENERAL: Encephalopathic HEENT: EOMI, with dry mucous membranes NECK: Supple, no JVD, trachea midline LUNGS: Coarse bilateral lung sounds HEART: Sinus Dennis on the monitor Normal S1 and S2, without murmurs ABD: Abdomen soft, nontender. Bowel sounds present EXT: No clubbing cyanosis or edema NEURO: Encephalopathic Vital Signs (last 8hr) Date Time Temp Pulse Resp B/P (MAP) Pulse Ox O2 Delivery O2 Flow Rate FiO2 10/11/24 18:19 99.0 54 15 103/53 100 Non-Rebreather+ 10.0 100 10/11/24 17:15 99.0 55 19 114/69 100 Non-Rebreather+ 10 100 10/11/24 16:27 99.1 69 26 100/53 100 Non-Rebreather+ 10 100 10/11/24 14:59 99.3 70 20 106/55 100 Non-Rebreather+ 10 100 10/11/24 13:02 80 20 Non Rebreather 10.0 100 10/11/24 13:02 99.7 10/11/24 12:19 99.0 62 20 116/54 93 Nasal Cannula* 2 28 LABS: Hematology Labs: Test 10/11/24 09:54 Range/Units White Blood Count 24.3 H 4.8-10.8 K/uL Red Blood Count 5.03 4.50-6.20 MIL/uL Hemoglobin 16.3 14.0-18.0 g/dL Hematocrit 46.9 42-54 % Mean Corpuscular Volume 93.2 79-99 fL Mean Corpuscular Hemoglobin 32.4 27.0-33.0 pg Mean Corpuscular Hemoglobin Concent 34.8 32.0-36.0 g/dL Red Cell Distribution Width 12.7 11.0-15.5 % Platelet Count 183 130-400 K/uL Mean Platelet Volume 10.0 7.5-10.5 fL Immature Granulocyte % (Auto) 0.8 0-1 % Neutrophils (%) (Auto) 89.3 H 40.0-77.0 % Lymphocytes (%) (Auto) 3.6 L 21.0-51.0 % Monocytes (%) (Auto) 6.1 3.0-13.0 % Eosinophils (%) (Auto) 0.0 0.0-8.0 % Basophils (%) (Auto) 0.2 0.0-5.0 % Neutrophils # (Auto) 21.7 H 1.8-7.7 K/uL Lymphocytes # (Auto) 0.9 L 1.0-4.8 K/uL Monocytes # (Auto) 1.5 H 0.1-1.0 K/uL Eosinophils # (Auto) 0.00 0.00-0.70 K/uL Basophils # (Auto) 0.05 0.00-0.20 K/uL Absolute Immature Granulocyte (auto 0.19 0-1 K/uL Segmented Neutrophils % 73 H 40-70 % Band Neutrophils % 19 H 0-2 % Lymphocytes % (Manual) 5 L 22-44 % Monocytes % (Manual) 3 2-9 % Nucleated Red Blood Cells 0.0 0.0-0.19 % Differential Comment MANUAL DIFFERENTIAL White Cell Morphology Comment CONSISTENT W/DIFF Platelet Morphology Comment ADEQUATE Red Blood Cell Morphology ANISO 1+ Chemistry Labs: Test 10/11/24 13:01 10/11/24 11:55 10/11/24 10:37 10/11/24 09:54 Range/Units Whole Blood Glucose 128 H 70-110 MG/DL Lactic Acid Level 1.8 0.8-2.5 mmol/L C-Reactive Protein, Quantitative 229.80 H 0.5-3.0 mg/L Procalcitonin 1.54 H 0.05-0.5 ng/mL Thyroid Stimulating Hormone (TSH) 0.50 0.36-3.74 uIU/mL Hemoglobin A1c 5.4 4.0-6.0 % Estimated Average Glucose (eAG) 108 70-126 mg/dL Sodium Level 135 L 136-145 mmol/L Potassium Level 3.8 3.5-5.1 mmol/L Chloride Level 99 L 101-111 mmol/L Carbon Dioxide Level 33 H 21-32 mmol/L Blood Urea Nitrogen 25 H 7-18 mg/dL Creatinine 0.9 0.5-1.3 mg/dL Glomerular Filtration Rate Calc 89 >90 mL/min Random Glucose 135 H 70-105 mg/dL Total Calcium 9.2 8.5-10.1 mg/dL Magnesium Level 2.10 1.80-2.40 mg/dL Total Creatine Kinase 5303 *H 21-232 U/L Troponin I High Sensitivity 75 4-75 ng/L B-Type Natriuretic Peptide 124 H 0-100 pg/mL Coagulation Labs: Test 10/11/24 09:54 Range/Units Prothrombin Time 13.3 H 9.6-11.6 SEC Prothromb Time International Ratio 1.29 H 0.85-1.15 Activated Partial Thromboplast Time 30.5 26.3-35.5 SEC DIAGNOSTICS / RADIOLOGY RESULTS: CT HEAD WITHOUT CONTRAST INDICATION: Fall TECHNIQUE: Noncontrast axial helical CT images from the vertex through the skull base using 5 mm slice thickness without contrast material. Coronal and sagittal reconstructions were also included. Dose reduction techniques was used using integrated, automated and adaptive dose reduction exposure control. CT was performed with one or more of the following dose reduction techniques: Automated exposure control, adjustment of the mA and/or kV according to patient size, or use of iterative reconstruction technique. COMPARISON: 12/27/2022 FINDINGS: Scattered and coalescent subcortical and periventricular white matter low attenuating areas likely represent residual of chronic small vessel arteriopathy and/or remote vascular insult. Generalized mild cerebral cortical atrophy is present.. No evidence for abnormal extra-axial fluid collections or masses. Cavum septum pellucidum as an incidental finding and normal variant. No evidence for hydrocephalus. No evidence for intracranial parenchymal, epidural, or subdural hemorrhage, mass effect or midline shift. The duke-white matter differentiation is well preserved. No secondary evidence to suggest acute ischemia. Mild calcific plaque is present along the horvath of the cavernous segments of both internal carotid arteries. The brainstem and cerebellum appear normal. The visualized orbits appear unremarkable. The visible paranasal sinuses and mastoid air cells are clear. The calvarium appears normal. IMPRESSION: Chronic white matter ischemic changes, mild brain atrophy, and arteriosclerotic disease as described, without acute component. PORTABLE CHEST RADIOGRAPH INDICATION: cp COMPARISON: 07/17/2015 FINDINGS: monitor tech leads overlie the field of view. Heart size is normal. The pulmonary vascularity and jacinto appear normal. No abnormal pulmonary parenchymal opacity or consolidation identified. No significant pleural effusion noted. No pneumothorax detected. IMPRESSION: No radiographic evidence for any acute cardiopulmonary process. PLAN NEURO: Minimize central acting medications as possible. Maintain fall precautions, adequate lighting during the day PULMONARY: Supplemental 02 as needed. Maintain aspiration precautions at all times CARDIOVASCULAR: Follow hemodynamics. Vital signs per facility protocol GI & NUTRITION: Continue with nutritional support. Continue stool softeners and laxatives as needed. KIDNEYS & ELECTROLYTES: Strict monitoring of intake, output and overall fluid balance. Avoid nephrotoxic medications to the extent possible. Medications to be dosed according to renal function. Monitor electrolytes and replace as needed ENDOCRINE: Maintain blood glucose between 100-180 at all times. Hypoglycemia protocol in place INFECTIOUS DISEASE: Trend temperature, WBC and procalcitonin level Follow cultures, deescalate antibiotics as soon as possible. Panculture if new onset fever ONCOLOGY/HEMATOLOGY/COAGULATION: Monitor for s/s of bleeding Monitor hemoglobin, coagulation studies as needed SKIN: Pressure ulcer prevention per facility protocol Specialty mattress ORTHO/REHAB: Continue PT/OT Prophylaxis: Continue GI and DVT prophylaxis Code Status: Full Resuscitation Disposition: TBD Other: Total patient care time exceeds 35 minutes excluding all procedures. Supervising physician: JODIE Peter MEDICAL OFFICER PSYCHIATRY Oct 11, 2024 19:19
[2024-10-11 19:30] VITALS: O2SAT 100
--- NOTE | 2024-10-11 19:30 | NUR ---
BEDSIDE SWALLOW EVAL COMPLETED. + s/s of aspiration. Recommend NPO assisted via NG/PEG or other alt means of nutrition COMPENSATORY STRATEGIES 1. maintain good oral hygiene 2. upright posture OFFICE SUPPORT ASSOCIATE reviewed results and recommendations with patient and nurse Helen. OFFICE SUPPORT ASSOCIATE educated patient on risk and consequences of aspiration. Due to patient's hx of Lewy Body Dementia, Speech therapy not warranted at this time. All questions answered. Addendum: 10/11/24 at 2142 by LINDA CHAUDHARY Amended: Links added.
--- NOTE | 2024-10-11 19:31 | NUR ---
SPEECH THERAPY AT BEDSIDE AT THIS TIME
--- NOTE | 2024-10-11 19:31 | NUR ---
CARE ASSUMED AT THIS TIME
--- NOTE | 2024-10-11 21:33 | HMCSR ---
APPROVED REPORT EXAM: Two-dimensional and M-mode echocardiogram with Doppler and color Doppler. INDICATION ICD: Fall Assess LV Function 2D Dimensions IVSd0.7 (0.7-1.1cm)LVEF(%)43.0 (>50%)LVED Vol(simp.)94.1 mL LVDd4.7 (3.8-5.6cm)FS(%)21 %LVES Vol(simp.)52.1 mL PWd0.9 (0.7-1.1cm)LA (2D)3.5 (1.6-4.0cm)LVEF(%, simp.)45 % IVSs1.1 cmAo Root(2D)3.9 (2.0-3.7cm)LA ESV INDEX (4CH)16.70 mL/m2 LVDs3.7 (2.5-4.0cm)LVOT diam2.8 (1.8-2.4cm)LA ESV INDEX (2CH)16.70 mL/m2 PWs1.0 cmLA ESV INDEX (BP)19.00 mL/m2 M-Mode Dimensions EPSS0.9 cm LA (MM)3.7 (1.6-4.0cm) Ao Root(MM)3.8 (2.0-3.7cm) Aortic Valve AoV VTI0.2 mAo Mean GR5.0 mmHgLVOT VTI0.13 m DIAMOND (VMAX)3.7 cm2AVA (VTI) 3.7 cm2 TDI Medial E' Peak V9.40 cm/sLateral E' Peak V11.50 cm/s Pulmonary Valve PV Vmax1.3 m/s PV Peak GR6.8 mmHg Left Ventricle The left ventricle is normal size. There is normal LV segmental wall motion. There is normal left sun tricular wall thickness. LVEF is 50-55%. Indeterminate diastolic dysfunction. Right Ventricle The right ventricle is normal size. The right ventricular systolic function is normal. Atria The left atrium size is normal. The right atrium size is normal. Aortic Valve The aortic valve is normal in structure. No aortic regurgitation is present. There is no aortic valvu lar stenosis. Mitral Valve The mitral valve is normal in structure. There is no mitral valve regurgitation noted. There is no mi tral valve stenosis. Tricuspid Valve The tricuspid valve is normal in structure. There is no tricuspid valve regurgitation noted. Pulmonic Valve Pulmonic valve is not well visualized. There is no pulmonic valvular regurgitation. Great Vessels The aortic root is normal in size. IVC is not well visualized. Pericardium There is no pericardial effusion. Other Information Quality : Technically difficult study due to body habitus and pts liimited cooperation. Conclusion LVEF is 50-55%.
[2024-10-11] MEDS: FAMOTIDINE 20MG VIAL IV SCH (21:45)
--- NOTE | 2024-10-12 02:28 | NUR ---
HEALTH COMPANION PROVIDER PAGED AT THIS TIME. PENDING CALL BACK AT THIS TIME.
--- NOTE | 2024-10-12 02:47 | NUR ---
SPOKE TO PROVIDER FAMILIA MASON NP AT THIS TIME ABOUT CRITICAL LAB VALUES.
[2024-10-12] MEDS ORDERED: FAMO20TA8 PO (06:27)
[2024-10-12] MEDS ORDERED: SIMV-46 PO (06:27)
[2024-10-12] MEDS ORDERED: TAMS-1 PO (06:27)
[2024-10-12] MEDS ORDERED: MELA3CAP2 PO (06:27)
[2024-10-12] MEDS ORDERED: CARB-38 PO (06:27)
[2024-10-12] MEDS ORDERED: ENTA200T5 PO (06:27)
[2024-10-12] MEDS ORDERED: RIVA1PAT12 TD (06:27)
--- NOTE | 2024-10-12 06:28 | NUR ---
MEDICATION RECONCILIATION DONE AT THIS TIME
--- NOTE | 2024-10-12 07:17 | NUR ---
REPORT GIVEN TO LATIA ROMERO AT THIS TIME
[2024-10-12 07:25] VITALS: PULSE 63; RESP 20; O2SAT 100
[2024-10-12 08:33] LABS: BASOPHILS # (AUTO) 0.03 K/uL (0.00-0.20); BASOPHILS % (AUTO) 0.2 % (0.0-5.0); EOSINOPHILS # (AUTO) 0.02 K/uL (0.00-0.70); EOSINOPHILS % (AUTO) 0.1 % (0.0-8.0); HEMATOCRIT 45.2 % (42-54); IMMATURE GRANULOCYTE ABSOLUTE 0.06 K/uL (0-1); LYMPHOCYTES # (AUTO) 0.6 K/uL (1.0-4.8); LYMPHOCYTES % (AUTO) 3.8 % (21.0-51.0); MEAN CORPUSCULAR HEMOGLOBIN 32.2 pg (27.0-33.0); MEAN CORPUSCULAR HGB CONC 33.8 g/dL (32.0-36.0); MEAN CORPUSCULAR VOLUME 95.2 fL (79-99); MONOCYTES # (AUTO) 0.8 K/uL (0.1-1.0); MONOCYTES % (AUTO) 5.3 % (3.0-13.0); NEUTROPHILS # (AUTO) 13.5 K/uL (1.8-7.7); NEUTROPHILS % (AUTO) 90.2 % (40.0-77.0); PLATELET COUNT (AUTO) 191 K/uL (130-400); RED BLOOD CELL COUNT(AUTO) 4.75 MIL/uL (4.50-6.20)
[2024-10-12 09:03] LABS: CREATININE 0.8 mg/dL (0.5-1.3); POTASSIUM 3.5 mmol/L (3.5-5.1)
--- NOTE | 2024-10-12 09:11 | PN ---
[facility] PROGRESS NOTE Date of Service: Oct 12, 2024 Time of Service: 08:53 SUBJECTIVE: [ ] This is a 74-year-old male that was three 2024 presents in ER with altered radiation admit to status and ground level fall and found to have severe sepsis and UTI. Tele neuro was done suspecting encephalopathy due to infection over acute ischemic stroke patient has a history of Lewy body progression. Patient also appear hypoxia was placed on non-rebreather on admission he is currently on nasal cannula4 L. Family apparently do not Wanna have aggressive measures hospice was discussed with patient family per light coil winder's. Patient was seen in ED patient apparently had a fall in ED unwitnessed he reports of right elbow pain in reports he bumps his head we will get a CT head and x-ray of right elbow. Patient has underlying Lewy dementia. He is high- risk for falls therefore one-to-one sitter we will be applied to his care. No family at bedside. Patient was able to answer all my questions. And follow commands REVIEW OF SYSTEMS ROS is limited since patient is unable to participate in conversation PHYSICAL EXAM GENERAL APPEARANCE: Patient appears lethargic at bedside. Moans when asked about his name NEUROLOGICAL: Patient does not follow commands for neurological exam. Patient has tremors in the upper extremity HEENT: Face is symmetric. Pupils are equal and reactive. Extraocular movements are intact. NECK: Supple. No JVD. No thyromegaly. No submental, submandibular, pre- /postauricular, occipital or supraclavicular lymphadenopathy. CHEST: Normal chest expansion. No Telemetry. LUNGS: Absence of any rales, rhonchi or any wheezing. CARDIOVASCULAR: Regular. S1 and S2 normal. No appreciable rubs, murmurs or gallops. ABDOMEN: Soft, nontender, and nondistended. There is no rebound, voluntary guarding, or rigidity. : Deferred. No Friedman. EXTREMITIES: Non-edematous and not cyanotic. No clubbing. Good capillary refill. SKIN: No skin breakdown. Vital Signs (last 8hr) Date Time Temp Pulse Resp B/P (MAP) Pulse Ox O2 Delivery O2 Flow Rate FiO2 10/12/24 07:50 97.7 64 17 162/70 100 Nasal Cannula* 4 36 10/12/24 07:25 63 20 Non Rebreather 15.0 100 10/12/24 06:32 52 17 130/91 100 Non-Rebreather+ 10.0 100 10/12/24 04:05 98.2 59 17 143/74 100 Non-Rebreather+ 10.0 100 10/12/24 02:13 59 19 116/61 100 Non-Rebreather+ 10.0 100 10/12/24 00:58 53 18 128/60 100 Non-Rebreather+ 10.0 100 LABS: Laboratory: Test 10/12/24 08:26 10/11/24 13:02 10/11/24 13:01 10/11/24 12:40 Range/Units White Blood Count 15.0 #H 4.8-10.8 K/uL Red Blood Count 4.75 4.50-6.20 MIL/uL Hemoglobin 15.3 14.0-18.0 g/dL Hematocrit 45.2 42-54 % Mean Corpuscular Volume 95.2 79-99 fL Mean Corpuscular Hemoglobin 32.2 27.0-33.0 pg Mean Corpuscular Hemoglobin Concent 33.8 32.0-36.0 g/dL Red Cell Distribution Width 13.0 11.0-15.5 % Platelet Count 191 130-400 K/uL Mean Platelet Volume 10.1 7.5-10.5 fL Immature Granulocyte % (Auto) 0.4 0-1 % Neutrophils (%) (Auto) 90.2 H 40.0-77.0 % Lymphocytes (%) (Auto) 3.8 L 21.0-51.0 % Monocytes (%) (Auto) 5.3 3.0-13.0 % Eosinophils (%) (Auto) 0.1 0.0-8.0 % Basophils (%) (Auto) 0.2 0.0-5.0 % Neutrophils # (Auto) 13.5 H 1.8-7.7 K/uL Lymphocytes # (Auto) 0.6 L 1.0-4.8 K/uL Monocytes # (Auto) 0.8 0.1-1.0 K/uL Eosinophils # (Auto) 0.02 0.00-0.70 K/uL Basophils # (Auto) 0.03 0.00-0.20 K/uL Absolute Immature Granulocyte (auto 0.06 0-1 K/uL Nucleated Red Blood Cells 0.0 0.0-0.19 % Blood Gas Specimen Type Arterial Arterial Blood pH 7.451 H 7.350-7.450 Arterial Blood Partial Pressure CO2 35 35-48 mmHg Arterial Blood Partial Pressure O2 139.3 H 83.0-108.0 mmHg Arterial Blood HCO3 23.8 21.0-28.0 mmol/L Arterial Blood Oxygen Saturation 98.7 H 94.0-98.0 % Arterial Blood Base Excess 0.4 -2.0-3.0 mmol/L Hemoglobin (Blood Gas) 15.9 13.5-17.5 g/dL Sodium (Blood Gas) 139 136-145 MMOL/L Bedside Potassium (Blood Gas) 4.1 3.4-4.5 MMOL/L Bedside Chloride (Blood Gas) 104 98-107 MMOL/L Bedside Glucose (Blood Gas) 120 H 65-95 MG/DL Bedside Ionized Calcium (Blood Gas) 1.13 L 1.15-1.33 MMOL/L Bedside Lactic Acid (Blood Gas) 2.67 H 0.36-0.75 MMOL/L Blood Gas Temperature 38.0 H 35.5-37.0 CELSIUS Blood Gas Flow-by 10.00 0.00-15.00 L/min Blood Gas Vent Mode NRB ROOM AIR FiO2 100.0 % Blood Gas Specimen Comment WYATT RN RR Whole Blood Glucose 128 H 70-110 MG/DL Influenza Type A Antigen Negative For Type A NEGATIVE Influenza Type B Antigen Negative For Type B NEGATIVE SARS-CoV-2, RNA, NAAT NEGATIVE SARS CoV-2 NEGATIVE Test 10/11/24 11:55 10/11/24 10:37 10/11/24 10:32 10/11/24 09:54 Range/Units Lactic Acid Level 1.8 0.8-2.5 mmol/L C-Reactive Protein, Quantitative 229.80 H 0.5-3.0 mg/L Procalcitonin 1.54 H 0.05-0.5 ng/mL Thyroid Stimulating Hormone (TSH) 0.50 0.36-3.74 uIU/mL Hemoglobin A1c 5.4 4.0-6.0 % Estimated Average Glucose (eAG) 108 70-126 mg/dL Urine Color YELLOW YELLOW Urine Appearance HAZY CLEAR Urine pH 5.5 5.0-8.0 Urine Specific [place] 1.026 1.001-1.031 Urine Protein 100 H NEGATIVE mg/dL Urine Glucose (UA) NEGATIVE NEGATIVE mg/dL Urine Ketones 10 H NEGATIVE mg/dL Urine Occult Blood LARGE H NEGATIVE Urine Nitrate NEGATIVE NEGATIVE Urine Bilirubin NEGATIVE NEGATIVE mg/dL Urine Urobilinogen 0.2 0.2-1.0 mg/dL Urine Leukocyte Esterase 500 H NEGATIVE Ashwini/uL Urine RBC 6-10 H 0-1 /HPF Urine WBC TNTC H 0-1 /HPF Urine Squamous Epithelial Cells FEW 0-2 /HPF Urine Bacteria MANY None Seen /HPF Segmented Neutrophils % 73 H 40-70 % Band Neutrophils % 19 H 0-2 % Lymphocytes % (Manual) 5 L 22-44 % Monocytes % (Manual) 3 2-9 % Differential Comment MANUAL DIFFERENTIAL White Cell Morphology Comment CONSISTENT W/DIFF Platelet Morphology Comment ADEQUATE Red Blood Cell Morphology ANISO 1+ Prothrombin Time 13.3 H 9.6-11.6 SEC Prothromb Time International Ratio 1.29 H 0.85-1.15 Activated Partial Thromboplast Time 30.5 26.3-35.5 SEC Sodium Level 135 L 136-145 mmol/L Potassium Level 3.8 3.5-5.1 mmol/L Chloride Level 99 L 101-111 mmol/L Carbon Dioxide Level 33 H 21-32 mmol/L Blood Urea Nitrogen 25 H 7-18 mg/dL Creatinine 0.9 0.5-1.3 mg/dL Glomerular Filtration Rate Calc 89 >90 mL/min Random Glucose 135 H 70-105 mg/dL Total Calcium 9.2 8.5-10.1 mg/dL Magnesium Level 2.10 1.80-2.40 mg/dL Total Creatine Kinase 5303 *H 21-232 U/L Troponin I High Sensitivity 75 4-75 ng/L B-Type Natriuretic Peptide 124 H 0-100 pg/mL Current Medications Medications (Trade) Dose Ordered Sig/Edgar Route PRN Reason Start Time Stop Time Status Last Admin Dose Admin Acetaminophen (TYLenol 500MG TAB) 500 mg Q6H PRN PO MILD PAIN (1-3) 10/11/24 12:30 11/10/24 12:29 10/11/24 13:02 500 MG Albuterol Sulfate (Proventil 0.083% 2.5mg/3ml) 2.5MG Q6H PRN IH SHORTNESS OF BREATH 10/11/24 12:30 11/10/24 12:29 Famotidine (Pepcid 20mg Vial) 20 mg BID IV 10/11/24 21:00 11/10/24 20:59 10/11/24 21:45 20 MG Piperacillin Sod/ Tazobactam Sod (Zosyn 3.375gm+NS 50ml) 3.375 gm Q8H IVPB 10/11/24 13:00 10/21/24 12:59 10/12/24 05:16 3.375 GM Sodium Chloride 1,000 ml @ 125 mls/hr Q8H IV 10/11/24 12:30 11/10/24 12:29 10/12/24 04:23 125 MLS/HR Sodium Chloride (NS 50ml) 50 ml AD IV 10/11/24 13:00 10/11/24 12:35 DC DIAGNOSTICS / RADIOLOGY: [ ] ASSESSMENT: Bacteremia POA Metabolic encephalopathy POA Suspecting sepsis secondary to UTI POA Acute respiratory failure with hypoxia requiring oxygen supplemental non- rebreather POA Ground Fall unwitnessed POA acute Rhabdomyolysis POA Possible URI with associated sputum production vs Aspiration Pneumonia UTI POA chronic problems: Lewy body dementia Hyperlipidemia Debility Diabetes mellitus type 2 PLAN: Admit: PCCU condition: Guarded Status: Full code at this time we will discussed DNR with family. IVF: NS at 1:25 a.m. an hour. Consultants tele neuro, light coil winder's and Infectious disease Antibiotics: Zosyn 3.375 g every 8 hours Test: Blood cultures growing Gram-negative rods repeat set urine cultures in process Right elbow x-ray three-view, CT head without contrast One-to-one sitter Oxygen supplement to keep O2 sats above 92%. Labs cbc, cmp, mag+ Inflammatory markers every other day. We will monitor trends Replace electrolytes as needed as per protocol to keep potassium above 4.0 magnesium 2.0. Home medications reviewed and reconciled. Flomax 0.4 mg daily, carbidopa and levodopa, rivastigmine and simvastatin speech consulted: aspiration precaution HOB at 45 degree. PRN: MEDICATIONS Tylenol 650 mg po every 4 hrs for fever zofran 4 mg IV every 6 hrs for n/v Hydralazine 5 mg IV every 4 hrs systolic pressure > 160 bowel regiment: lactulose 20 gm PO BID PRN constipation Pain management: Supportive measures: DVT ppx, GI ppx all questions answered time spent: > 35 min Supervising MD: Dr. Erika Aguilar c/d This document was generated in part using voice recognition software, occasional wrong word or sound alike substitutions may have occurred due to the inherent limitations of voice recognition software. Read the chart carefully and recognize using context, where the substitutions have occurred. Although every effort was made to edit the content, finance business partner and typing errors may occur ATTESTATION BY PHYSICIAN I have seen and examined the patient. I reviewed the documentation, medical decision making, and treatment plan as noted by the mid-level provider above. I agree with the findings and plan of care. DAVIS AGUILAR MD, ELIZABETH NP Oct 12, 2024 09:10
--- NOTE | 2024-10-12 09:13 | NUR ---
CRITICAL LAB CK TOTAL 7410
[2024-10-12] MEDS ORDERED: MAGNESIUM 2GM PREMIX 50ML 50 ML IV PRN (09:30)
[2024-10-12] MEDS ORDERED: PoTASSium chloRIDE 20MEQ/100ML 100 ML IV PRN (09:30)
[2024-10-12] MEDS ORDERED: PoTASSium chloRIDE 20MEQ ER 20 MEQ ERTAB PO PRN (09:30)
[2024-10-12 09:40] LABS: ALBUMIN 3.1 g/dL (3.5-5.0); BILIRUBIN,TOTAL 2.1 mg/dL (0.2-1.0); TOTAL PROTEIN, SERUM 7.5 g/dL (6.0-8.3)
--- NOTE | 2024-10-12 10:24 | NUR ---
Patient Status Update: Patient was discovered on the floor at 1020. Debra, primary RN, made aware and will contact admitting regarding event. Patient is awake and alert at this time, reports pain to left elbow, left forearm.
--- NOTE | 2024-10-12 11:07 | NUR ---
POST FALL HOSPITALIST,JOSE MIGUEL GOLDBERG REVIEWED PT.SEE ORDERS. SISTER,JEISON MELLO AT BEDSIDE.SHE IS UPDATED ABOUT THE FALL.
[2024-10-12] MEDS ORDERED: LATA2.5D14 OP (11:11)
[2024-10-12] MEDS ORDERED: TIMO5SOL10 OP (11:11)
[2024-10-12] MEDS ORDERED: BRIM5DRO5 OP (11:11)
--- NOTE | 2024-10-12 12:19 | HMCIMG ---
PORTABLE CHEST RADIOGRAPH INDICATION: aspiration COMPARISON: 10/11/2024 FINDINGS: Heart size is normal. The pulmonary vascularity and jacinto appear normal. No abnormal pulmonary parenchymal opacity or consolidation identified. No significant pleural effusion noted. No pneumothorax detected. IMPRESSION: No radiographic evidence for any acute cardiopulmonary process.
--- NOTE | 2024-10-12 12:24 | HMCIMG ---
RIGHT ELBOW RADIOGRAPHS - 3 VIEWS INDICATION: Pain COMPARISON: None FINDINGS: AP, lateral, and oblique views. No acute fracture or subluxation identified. No significant joint effusion is present. No radiopaque foreign body noted. IMPRESSION: No evidence for fracture or dislocation.
--- NOTE | 2024-10-12 13:13 | NUR ---
RESTRAINS MITTENS APPLIED DUE TO INCREASED RESTLESSNESS.
--- NOTE | 2024-10-12 13:32 | HMCIMG ---
LEFT ELBOW RADIOGRAPHS -2 VIEWS INDICATION: Pain COMPARISON: None FINDINGS: AP, lateral views. No fracture or dislocation identified. No significant joint effusion is present. No radiopaque foreign body noted. IMPRESSION: No evidence for fracture or dislocation.
--- NOTE | 2024-10-12 14:25 | HMCIMG ---
CT HEAD WITHOUT CONTRAST INDICATION: Fall TECHNIQUE: Noncontrast axial helical CT images from the vertex through the skull base using 5 mm slice thickness without contrast material. Coronal and sagittal reconstructions were also included. Dose reduction techniques was used using integrated, automated and adaptive dose reduction exposure control. CT was performed with one or more of the following dose reduction techniques: Automated exposure control, adjustment of the mA and/or kV according to patient size, or use of iterative reconstruction technique. COMPARISON: 12/27/2022 FINDINGS: Scattered and coalescent subcortical and periventricular white matter low attenuating areas likely represent residual of chronic small vessel arteriopathy and/or remote vascular insult. Generalized mild cerebral cortical atrophy is present.. No evidence for abnormal extra-axial fluid collections or masses. The ventricles and sulci are normal in size and configuration. No evidence for intracranial parenchymal, epidural, or subdural hemorrhage, mass effect or midline shift. The duke-white matter differentiation is well preserved. No secondary evidence to suggest acute ischemia. Mild calcific plaque is present along the horvath of the cavernous segments of both internal carotid arteries. The brainstem and cerebellum appear normal. The visualized orbits appear unremarkable. The visible paranasal sinuses and mastoid air cells are clear. The calvarium appears normal. IMPRESSION: Chronic white matter ischemic changes, mild brain atrophy, and arteriosclerotic disease as described, without acute component.
--- NOTE | 2024-10-12 14:27 | HMCIMG ---
CT ABDOMEN WITHOUT CONTRAST. CT PELVIS WITHOUT CONTRAST. INDICATION: Fall; No specific site of pain/injury provided in patient history by the ordering service. TECHNIQUE: Routine transaxial imaging using 5 mm slice thickness through the abdomen and pelvis without the administration of IV contrast. Thin slice reconstructions are also provided. Coronal and sagittal reformatted images acquired for interpretation. CT was performed with one or more of the following dose reduction techniques: Automated exposure control, adjustment of the mA and/or kV according to patient size, or use of iterative reconstruction technique. COMPARISON: 10/11/2024 FINDINGS: ON NONCONTRAST IMAGING: ABDOMEN: Diagnostic sensitivity of this examination is limited by patient motion artifact. Heart size is normal. Coronary arterial wall calcific plaque noted. Visible lung bases are clear. No abnormal renal calcifications, hydronephrosis, perinephric inflammation, or proximal hydroureter detected. The liver is normal in size and smooth in contour without biliary duct dilation. The spleen is normal in size and attenuation. A couple of subcentimeter calcific gallbladder neck stones and gallbladder distention.. The pancreas appears normal without pancreatic duct dilation. The adrenal glands appear normal. No significant abdominal, retrocrural or retroperitoneal adenopathy noted. No evidence for intra-abdominal free air or organized fluid collection. Mild calcific plaque is noted along the abdominal aortic and iliac vessel horvath without aneurysmal dilation. PELVIS: No abnormal calcifications within the urinary bladder or distal ureters. No evidence for free air or organized pelvic fluid collection. No significant pelvic adenopathy detected. Extensive stool burden. Terminal ileum appears unremarkable. The appendix it is not well-visualized. Prostate gland transverse dimension measures 7.7 cm. Mild thoracolumbar spondylosis and mild lumbar dextroscoliosis.. IMPRESSION: Limitations as reported. No specific site of pain/injury provided in patient history by the ordering service. No evidence for any acute injury. 1. Cholelithiasis and gallbladder distention without CT evidence for cholecystitis. 2. Enlarged prostate gland. 3. Constipation. 4. Mild calcific plaque is noted along the abdominal aortic and iliac vessel horvath without aneurysmal dilation.
--- NOTE | 2024-10-12 15:00 | NUR ---
PT TRANSFERREN ONTO A HOSPITAL BED.
--- NOTE | 2024-10-12 15:41 | PN ---
[facility] PROGRESS NOTE Date Patient Seen: Oct 12, 2024 Time of Visit: 15:38 Supervising Physician: VIKAS RANKIN Consulting Physician: Dr Tovar Outpatient Specialists: [ ] Inpatient Consults: [facility] Pul[facility] PROBLEM LIST: Acute hypoxic respiratory failure POA Episodic apnea, POA Severe sepsis, POA Urinary tract infection, POA Possible aspiration pneumonia Lewy body dementia, diagnosed 2017 Alteration in mental status Feeding difficulty in adult, POA PLAN: Admit per primary Continue O2 therapy Keep O2 saturation above 90% Pulmonary toilet DuoNeb q.6 Aspiration precautions Keep head of bed above 30 NGT for PO access Recommend Palliative care consult-spoke to sister present at bedside, family decided to make him DNR/DNI, and currently discussing possibility of hospice/comfort care. Continue antibiotics per primary INTERVAL HISTORY: Patient was seen and examined at bedside, he was on NRM overnight given an episode of hypoxia which is suspected due to aspiration given his advanced dementia. at bedside. Has mittens in place and sitter given his agitation No further apneic episodes reported. Arterial blood gases reveal pH of 7.4, PO2 of 139 on non-rebreather at 10 L. We will repeat these today. REVIEW OF SYSTEMS: Unable to obtain due to alteration in mental status PHYSICAL EXAM: GENERAL: Encephalopathic HEENT: EOMI, with dry mucous membranes NECK: Supple, no JVD, trachea midline LUNGS: Coarse bilateral lung sounds HEART: Sinus Dennis on the monitor Normal S1 and S2, without murmurs ABD: Abdomen soft, nontender. Bowel sounds present EXT: No clubbing cyanosis or edema NEURO: Encephalopathic Vital Signs (last 8hr) Date Time Temp Pulse Resp B/P (MAP) Pulse Ox O2 Delivery O2 Flow Rate FiO2 10/12/24 14:15 97.7 86 17 145/66 96 Room Air* 0 21 10/12/24 12:17 97.7 83 17 156/68 95 Room Air* 0 21 10/12/24 07:50 97.7 64 17 162/70 100 Nasal Cannula* 4 36 LABS: Hematology Labs: Test 10/12/24 08:26 10/11/24 09:54 Range/Units White Blood Count 15.0 #H 4.8-10.8 K/uL Red Blood Count 4.75 4.50-6.20 MIL/uL Hemoglobin 15.3 14.0-18.0 g/dL Hematocrit 45.2 42-54 % Mean Corpuscular Volume 95.2 79-99 fL Mean Corpuscular Hemoglobin 32.2 27.0-33.0 pg Mean Corpuscular Hemoglobin Concent 33.8 32.0-36.0 g/dL Red Cell Distribution Width 13.0 11.0-15.5 % Platelet Count 191 130-400 K/uL Mean Platelet Volume 10.1 7.5-10.5 fL Immature Granulocyte % (Auto) 0.4 0-1 % Neutrophils (%) (Auto) 90.2 H 40.0-77.0 % Lymphocytes (%) (Auto) 3.8 L 21.0-51.0 % Monocytes (%) (Auto) 5.3 3.0-13.0 % Eosinophils (%) (Auto) 0.1 0.0-8.0 % Basophils (%) (Auto) 0.2 0.0-5.0 % Neutrophils # (Auto) 13.5 H 1.8-7.7 K/uL Lymphocytes # (Auto) 0.6 L 1.0-4.8 K/uL Monocytes # (Auto) 0.8 0.1-1.0 K/uL Eosinophils # (Auto) 0.02 0.00-0.70 K/uL Basophils # (Auto) 0.03 0.00-0.20 K/uL Absolute Immature Granulocyte (auto 0.06 0-1 K/uL Nucleated Red Blood Cells 0.0 0.0-0.19 % Segmented Neutrophils % 73 H 40-70 % Band Neutrophils % 19 H 0-2 % Lymphocytes % (Manual) 5 L 22-44 % Monocytes % (Manual) 3 2-9 % Differential Comment MANUAL DIFFERENTIAL White Cell Morphology Comment CONSISTENT W/DIFF Platelet Morphology Comment ADEQUATE Red Blood Cell Morphology ANISO 1+ Chemistry Labs: Test 10/12/24 08:26 10/11/24 13:01 10/11/24 11:55 10/11/24 10:37 Range/Units Sodium Level 140 136-145 mmol/L Potassium Level 3.5 3.5-5.1 mmol/L Chloride Level 103 101-111 mmol/L Carbon Dioxide Level 33 H 21-32 mmol/L Blood Urea Nitrogen 30 H 7-18 mg/dL Creatinine 0.8 0.5-1.3 mg/dL Glomerular Filtration Rate Calc 92 >90 mL/min Random Glucose 86 70-105 mg/dL Total Calcium 8.4 L 8.5-10.1 mg/dL Magnesium Level 2.00 1.80-2.40 mg/dL Total Bilirubin 2.1 H 0.2-1.0 mg/dL Aspartate Amino Transf (AST/SGOT) 155 H 10-37 U/L Alanine Aminotransferase (ALT/SGPT) 82 H 12-78 U/L Alkaline Phosphatase 67 50-136 U/L Total Creatine Kinase 2285 #*H 21-232 U/L Total Protein 7.5 6.0-8.3 g/dL Albumin 3.1 L 3.5-5.0 g/dL Whole Blood Glucose 128 H 70-110 MG/DL Lactic Acid Level 1.8 0.8-2.5 mmol/L C-Reactive Protein, Quantitative 229.80 H 0.5-3.0 mg/L Procalcitonin 1.54 H 0.05-0.5 ng/mL Thyroid Stimulating Hormone (TSH) 0.50 0.36-3.74 uIU/mL Hemoglobin A1c 5.4 4.0-6.0 % Estimated Average Glucose (eAG) 108 70-126 mg/dL Test 10/11/24 09:54 Range/Units Troponin I High Sensitivity 75 4-75 ng/L B-Type Natriuretic Peptide 124 H 0-100 pg/mL Coagulation Labs: Test 10/11/24 09:54 Range/Units Prothrombin Time 13.3 H 9.6-11.6 SEC Prothromb Time International Ratio 1.29 H 0.85-1.15 Activated Partial Thromboplast Time 30.5 26.3-35.5 SEC DIAGNOSTICS / RADIOLOGY RESULTS: [ ] PLAN NEURO: Minimize central acting medications as possible. Maintain fall precautions, adequate lighting during the day PULMONARY: Supplemental 02 as needed. Maintain aspiration precautions at all times CARDIOVASCULAR: Follow hemodynamics. Vital signs per facility protocol GI & NUTRITION: Continue with nutritional support. Continue stool softeners and laxatives as needed. KIDNEYS & ELECTROLYTES: Strict monitoring of intake, output and overall fluid balance. Avoid nephrotoxic medications to the extent possible. Medications to be dosed according to renal function. Monitor electrolytes and replace as needed ENDOCRINE: Maintain blood glucose between 100-180 at all times. Hypoglycemia protocol in place INFECTIOUS DISEASE: Trend temperature, WBC and procalcitonin level Follow cultures, deescalate antibiotics as soon as possible. Panculture if new onset fever ONCOLOGY/HEMATOLOGY/COAGULATION: Monitor for s/s of bleeding Monitor hemoglobin, coagulation studies as needed SKIN: Pressure ulcer prevention per facility protocol Specialty mattress ORTHO/REHAB: Continue PT/OT Prophylaxis: Continue GI and DVT prophylaxis Code Status: Full Resuscitation Disposition: TBD Other: Total patient care time exceeds 35 minutes excluding all procedures. WILLIAM STACK Oct 12, 2024 15:41
[2024-10-12] MEDS: Entacapone 200 MG PO SCH (15:48)
[2024-10-12 16:15] LABS: ABG BASE EXCESS 2.3 mmol/L (-2.0-3.0); ABG HCO3 25.7 mmol/L (21.0-28.0); ABG PCO2 36 mmHg (35-48); ABG PH 7.469 (7.350-7.450); PO2, ARTERIAL BG 69.4 mmHg (83.0-108.0); VENT MODE, BG RA (ROOM AIR)
[2024-10-12 16:35] VITALS: BP 142/76; PULSE 79; RESP 24; TEMP 100.8
[2024-10-12 19:43] VITALS: BP 153/84; PULSE 69; RESP 18; TEMP 100.1
[2024-10-12 20:00] VITALS: O2SAT 96
[2024-10-12] MEDS: simVASTatin 20 MG TABLET PO SCH (21:00)
[2024-10-12] MEDS: LATANOPROST 2.5 ML DROPS OP SCH (21:07)
[2024-10-12] MEDS: TIMOLOL MALEATE OP SCH (21:07)
[2024-10-12] MEDS: BRIMONIDINE TARTRATE 0.2% 5 ML BOTTLE OP SCH (21:07)
[2024-10-12 23:24] VITALS: BP 127/67; PULSE 56; RESP 18; TEMP 98.9
[2024-10-13] VITALS (11 sets, daily range): BP systolic 127–158; BP diastolic 72–84; PULSE 54–70; RESP 18–22; TEMP 98–99.5; O2SAT 96–100
--- NOTE | 2024-10-13 03:24 | CONS ---
INFECTIOUS DISEASE CONSULTATION NOTE DATE OF SERVICE: 10/12/2024 REQUESTING PHYSICIAN: Gil Tovar MD REASON FOR CONSULTATION: UTI and Gram-negative bacteremia. HISTORY OF PRESENT ILLNESS: A 74-year-old male with history of Lewy body dementia brought to the emergency room with fever, fall and generalized weakness. Urinalysis was found to be positive. The patient was found with WBC of 24.3. Urine and blood culture came back with Gram-negative sky. The patient had been started on Zosyn. The patient found with CPK of 2285. Procalcitonin was elevated at 1.54. The patient has no cough. No nausea, vomiting or diarrhea. The patient is awake, but very confused and unable to give any history. The patient had episode of fall at home. PAST MEDICAL HISTORY: * Lewy body dementia. * Dyslipidemia. * UTI. * Parkinson's disease. PAST SURGICAL HISTORY: Knee surgery. ALLERGIES: No known drug allergy. CURRENT MEDICATIONS: Include: * Zosyn. * Tylenol. * Sinemet. * DuoNeb. * Zocor. SOCIAL HISTORY: Lives with son. No alcohol, tobacco or illicit drugs. FAMILY HISTORY: Noncontributory. REVIEW OF SYSTEMS: Available history obtained from medical record. The patient is very confused, not able to give any history. PHYSICAL EXAMINATION: GENERAL: Elderly male, awake. VITAL SIGNS: Temperature 97.7, pulse 92, respirations 17, BP 156/78. EYES: No icterus. Pupils are equal and reactive. HENT: No oral thrush seen. Moist oral mucosa. NECK: Supple, no JVD, no thyromegaly. LUNGS: Good air entry. No rales, no rhonchi. CARDIOVASCULAR: S1, S2 regular. No murmur heard. ABDOMEN: Full, soft, nontender. Bowel sounds present. CENTRAL NERVOUS SYSTEM: The patient is awake, confused, bedbound debility. SKIN: No rashes. No itchiness. LYMPHATIC: No peripheral lymphadenopathy. BACK: No deformity. No pressure ulcer. HEMATOLOGIC: No bleeding or petechial lesions seen. LABORATORY DATA: Sodium 140, potassium 3.5, BUN 30, creatinine 0.8. CPK 2285. WBC 15.0, hemoglobin 15.3, platelets 191,000. Urine culture grew Gram-negative sky. Blood culture growing Gram-negative rods. RADIOLOGY: CT of the abdomen shows mild gallbladder distention. ASSESSMENT: A 74-year-old male presenting with weakness. CURRENT PROBLEMS: Include: * Gram-negative bacteremia. * Urinary tract infection. * Rhabdomyolysis. * Mechanical fall. * Dementia. * Parkinson's disease. PLAN: * Continue Zosyn. * Follow up cultures. * Continue pain management. * Continue antiemetic. * Continue nutritional support. * Continue . * Monitor electrolytes. * The patient will be followed up closely. * Antibiotic will be adjusted when culture updated or finalized. Thank you for allowing me to participate in the care of this patient. TID: [id number] RECEIPT: [id number]
[2024-10-13] MEDS: ALBUTEROL 0.083% 2.5 MG/3 ML INH IH PRN (07:15)
--- NOTE | 2024-10-13 08:42 | PN ---
[facility] PROGRESS NOTE Date of Service: Oct 13, 2024 Time of Service: 08:34 SUBJECTIVE: [ ] This is a 74-year-old male that was three 2024 presents in ER with altered radiation admit to status and ground level fall and found to have severe sepsis and UTI. Tele neuro was done suspecting encephalopathy due to infection over acute ischemic stroke patient has a history of Lewy body progression. Patient also appear hypoxia was placed on non-rebreather on admission he is currently on nasal cannula4 L. Family apparently do not Wanna have aggressive measures hospice was discussed with patient family per test development engineer's. Patient was seen in ED patient apparently had a fall in ED unwitnessed he reports of right elbow pain in reports he bumps his head we will get a CT head and x-ray of right elbow. Patient has underlying Lewy dementia. He is high- risk for falls therefore one-to-one sitter we will be applied to his care. No family at bedside. Patient was able to answer all my questions. And follow commands 10/13/24 patient is seen patient is awake family at bedside son reports this is his norm mentation there are requesting SNF: We will wait for ID recommendations repeat cultures so far negative blood cultures on admission E coli. We will continue with broad-spectrum antibiotics. REVIEW OF SYSTEMS ROS is limited since patient is unable to participate in conversation PHYSICAL EXAM GENERAL APPEARANCE: Patient appears lethargic at bedside. Moans when asked about his name NEUROLOGICAL: Patient does not follow commands for neurological exam. Patient has tremors in the upper extremity HEENT: Face is symmetric. Pupils are equal and reactive. Extraocular movements are intact. NECK: Supple. No JVD. No thyromegaly. No submental, submandibular, pre- /postauricular, occipital or supraclavicular lymphadenopathy. CHEST: Normal chest expansion. No Telemetry. LUNGS: Absence of any rales, rhonchi or any wheezing. CARDIOVASCULAR: Regular. S1 and S2 normal. No appreciable rubs, murmurs or gallops. ABDOMEN: Soft, nontender, and nondistended. There is no rebound, voluntary guarding, or rigidity. : Deferred. No Friedman. EXTREMITIES: Non-edematous and not cyanotic. No clubbing. Good capillary refill. SKIN: No skin breakdown. Vital Signs (last 8hr) Date Time Temp Pulse Resp B/P (MAP) Pulse Ox O2 Delivery O2 Flow Rate FiO2 10/13/24 07:19 54 18 N/A Room Air 21 10/13/24 07:15 54 18 10/13/24 07:00 98.8 61 22 150/72 95 Room Air 10/13/24 04:17 99.5 58 18 134/76 97 Room Air 10/13/24 01:22 70 18 N/A Room Air 21 LABS: Laboratory: Test 10/12/24 16:14 10/12/24 15:50 10/12/24 08:26 10/11/24 13:02 Range/Units Blood Gas Specimen Type Arterial Arterial Blood pH 7.469 H 7.350-7.450 Arterial Blood Partial Pressure CO2 36 35-48 mmHg Arterial Blood Partial Pressure O2 69.4 L 83.0-108.0 mmHg Arterial Blood HCO3 25.7 21.0-28.0 mmol/L Arterial Blood Oxygen Saturation 95.0 94.0-98.0 % Arterial Blood Base Excess 2.3 -2.0-3.0 mmol/L Blood Gas Temperature 37.0 35.5-37.0 CELSIUS Blood Gas Vent Mode RA ROOM AIR FiO2 21.0 % Blood Gas Specimen Comment RR,HEATHER-RN Ammonia 11 11-32 umol/L White Blood Count 15.0 #H 4.8-10.8 K/uL Red Blood Count 4.75 4.50-6.20 MIL/uL Hemoglobin 15.3 14.0-18.0 g/dL Hematocrit 45.2 42-54 % Mean Corpuscular Volume 95.2 79-99 fL Mean Corpuscular Hemoglobin 32.2 27.0-33.0 pg Mean Corpuscular Hemoglobin Concent 33.8 32.0-36.0 g/dL Red Cell Distribution Width 13.0 11.0-15.5 % Platelet Count 191 130-400 K/uL Mean Platelet Volume 10.1 7.5-10.5 fL Immature Granulocyte % (Auto) 0.4 0-1 % Neutrophils (%) (Auto) 90.2 H 40.0-77.0 % Lymphocytes (%) (Auto) 3.8 L 21.0-51.0 % Monocytes (%) (Auto) 5.3 3.0-13.0 % Eosinophils (%) (Auto) 0.1 0.0-8.0 % Basophils (%) (Auto) 0.2 0.0-5.0 % Neutrophils # (Auto) 13.5 H 1.8-7.7 K/uL Lymphocytes # (Auto) 0.6 L 1.0-4.8 K/uL Monocytes # (Auto) 0.8 0.1-1.0 K/uL Eosinophils # (Auto) 0.02 0.00-0.70 K/uL Basophils # (Auto) 0.03 0.00-0.20 K/uL Absolute Immature Granulocyte (auto 0.06 0-1 K/uL Nucleated Red Blood Cells 0.0 0.0-0.19 % Sodium Level 140 136-145 mmol/L Potassium Level 3.5 3.5-5.1 mmol/L Chloride Level 103 101-111 mmol/L Carbon Dioxide Level 33 H 21-32 mmol/L Blood Urea Nitrogen 30 H 7-18 mg/dL Creatinine 0.8 0.5-1.3 mg/dL Glomerular Filtration Rate Calc 92 >90 mL/min Random Glucose 86 70-105 mg/dL Total Calcium 8.4 L 8.5-10.1 mg/dL Magnesium Level 2.00 1.80-2.40 mg/dL Total Bilirubin 2.1 H 0.2-1.0 mg/dL Aspartate Amino Transf (AST/SGOT) 155 H 10-37 U/L Alanine Aminotransferase (ALT/SGPT) 82 H 12-78 U/L Alkaline Phosphatase 67 50-136 U/L Total Creatine Kinase 2285 #*H 21-232 U/L Total Protein 7.5 6.0-8.3 g/dL Albumin 3.1 L 3.5-5.0 g/dL Hemoglobin (Blood Gas) 15.9 13.5-17.5 g/dL Sodium (Blood Gas) 139 136-145 MMOL/L Bedside Potassium (Blood Gas) 4.1 3.4-4.5 MMOL/L Bedside Chloride (Blood Gas) 104 98-107 MMOL/L Bedside Glucose (Blood Gas) 120 H 65-95 MG/DL Bedside Ionized Calcium (Blood Gas) 1.13 L 1.15-1.33 MMOL/L Bedside Lactic Acid (Blood Gas) 2.67 H 0.36-0.75 MMOL/L Blood Gas Flow-by 10.00 0.00-15.00 L/min Test 10/11/24 13:01 10/11/24 12:40 10/11/24 11:55 10/11/24 10:37 Range/Units Whole Blood Glucose 128 H 70-110 MG/DL Influenza Type A Antigen Negative For Type A NEGATIVE Influenza Type B Antigen Negative For Type B NEGATIVE SARS-CoV-2, RNA, NAAT NEGATIVE SARS CoV-2 NEGATIVE Lactic Acid Level 1.8 0.8-2.5 mmol/L C-Reactive Protein, Quantitative 229.80 H 0.5-3.0 mg/L Procalcitonin 1.54 H 0.05-0.5 ng/mL Thyroid Stimulating Hormone (TSH) 0.50 0.36-3.74 uIU/mL Hemoglobin A1c 5.4 4.0-6.0 % Estimated Average Glucose (eAG) 108 70-126 mg/dL Test 10/11/24 10:32 10/11/24 09:54 Range/Units Urine Color YELLOW YELLOW Urine Appearance HAZY CLEAR Urine pH 5.5 5.0-8.0 Urine Specific Tatum 1.026 1.001-1.031 Urine Protein 100 H NEGATIVE mg/dL Urine Glucose (UA) NEGATIVE NEGATIVE mg/dL Urine Ketones 10 H NEGATIVE mg/dL Urine Occult Blood LARGE H NEGATIVE Urine Nitrate NEGATIVE NEGATIVE Urine Bilirubin NEGATIVE NEGATIVE mg/dL Urine Urobilinogen 0.2 0.2-1.0 mg/dL Urine Leukocyte Esterase 500 H NEGATIVE Ashwini/uL Urine RBC 6-10 H 0-1 /HPF Urine WBC TNTC H 0-1 /HPF Urine Squamous Epithelial Cells FEW 0-2 /HPF Urine Bacteria MANY None Seen /HPF Segmented Neutrophils % 73 H 40-70 % Band Neutrophils % 19 H 0-2 % Lymphocytes % (Manual) 5 L 22-44 % Monocytes % (Manual) 3 2-9 % Differential Comment MANUAL DIFFERENTIAL White Cell Morphology Comment CONSISTENT W/DIFF Platelet Morphology Comment ADEQUATE Red Blood Cell Morphology ANISO 1+ Prothrombin Time 13.3 H 9.6-11.6 SEC Prothromb Time International Ratio 1.29 H 0.85-1.15 Activated Partial Thromboplast Time 30.5 26.3-35.5 SEC Troponin I High Sensitivity 75 4-75 ng/L B-Type Natriuretic Peptide 124 H 0-100 pg/mL Current Medications Medications (Trade) Dose Ordered Sig/Edgar Route PRN Reason Start Time Stop Time Status Last Admin Dose Admin Acetaminophen (TYLenol 500MG TAB) 500 mg Q6H PRN PO MILD PAIN (1-3) 10/11/24 12:30 11/10/24 12:29 10/11/24 13:02 500 MG Albuterol Sulfate (Proventil 0.083% 2.5mg/3ml) 2.5MG Q6H PRN IH SHORTNESS OF BREATH 10/11/24 12:30 11/10/24 12:29 10/13/24 07:15 2.5 MG Brimonidine Tartrate (Alphagan P) 1 DROP BID OP 10/12/24 21:00 11/11/24 20:59 10/12/24 21:07 1 ML Carbidopa/Levodopa (Sinemet 25-100 Tab) 1 each DAILY PO 10/13/24 09:00 11/12/24 08:59 Famotidine (Pepcid 20mg Vial) 20 mg BID IV 10/11/24 21:00 11/10/24 20:59 10/12/24 21:06 20 MG Home Med (Home Medication) (Timolol Maleate 1 DROP) BID OP 10/12/24 21:00 11/11/24 20:59 10/12/24 21:07 1 EACH Home Med (Home Medication) Entacapone 200 MG TID PO 10/12/24 14:00 11/11/24 13:59 10/12/24 15:48 200 EACH Home Med (Home Medication) MELATONIN 3MG DAILY PO 10/13/24 09:00 11/12/24 08:59 Home Med (Home Medication) Rivastigmine 9.5MG/24H 1 EACH DAILY TD 10/13/24 09:00 11/12/24 08:59 Latanoprost (Xalatan) 1 DROP HS OP 10/12/24 21:00 11/11/24 20:59 10/12/24 21:07 1 DROP Magnesium Sulfate 50 ml @ 0 mls/hr PROTOCOL PRN IV low mag level 10/12/24 09:30 11/11/24 09:29 Piperacillin Sod/ Tazobactam Sod (Zosyn 3.375gm+NS 50ml) 3.375 gm Q8H IVPB 10/11/24 13:00 10/21/24 12:59 10/13/24 04:28 3.375 GM Potassium Chloride 100 ml @ 100 mls/hr AD PRN IV POTASSIUM PROTOCOL 10/12/24 09:30 11/11/24 09:29 Potassium Chloride (K-Dur/Klor-Con 20meq) 20 meq AD PRN PO POTASSIUM PROTOCOL 10/12/24 09:30 11/11/24 09:29 Potassium Chloride (KCl 10% Elixir 20meq/15ml) 20 meq AD PRN PO POTASSIUM PROTOCOL 10/12/24 09:30 11/11/24 09:29 Simvastatin (zoCOR) 40 mg HS PO 10/12/24 21:00 11/11/24 20:59 Sodium Chloride 1,000 ml @ 125 mls/hr Q8H IV 10/11/24 12:30 11/10/24 12:29 10/13/24 04:22 125 MLS/HR Sodium Chloride (NS 50ml) 50 ml AD IV 10/11/24 13:00 10/11/24 12:35 DC Tamsulosin HCl (FloMAX) 0.4 mg DAILY PO 10/13/24 09:00 11/12/24 08:59 DIAGNOSTICS / RADIOLOGY: [ ] ASSESSMENT: Bacteremia gram negative E coli POA Metabolic encephalopathy POA Suspecting sepsis secondary to UTI POA Acute respiratory failure with hypoxia requiring oxygen supplemental non- rebreather POA improved Ground Fall unwitnessed POA acute Rhabdomyolysis POA Possible URI with associated sputum production vs Aspiration Pneumonia UTI Gram negative e coli POA chronic problems: Lewy body dementia Hyperlipidemia Debility Diabetes mellitus type 2 PLAN: Admit: PCCU condition: Guarded Status: Full code IVF: NS at 1:25 ML an hour We will continue to monitor CK levels we will adjust fluids accordingly Consultants tele neuro, test development engineer's and Infectious disease Antibiotics: Zosyn 3.375 g every 8 hours We will continue to monitor white count. blood with Ecoli and urine. resp cultures in process Oxygen supplement to keep O2 sats above 92%. Labs cbc, cmp, mag+ Inflammatory markers every other day. We will monitor trends Replace electrolytes as needed as per protocol to keep potassium above 4.0 magnesium 2.0. Home medications reviewed and reconciled. Flomax 0.4 mg daily, carbidopa and levodopa, rivastigmine and simvastatin speech consulted: aspiration precaution HOB at 45 degree. fall precaution Pain management: Tylenol 650 as needed Supportive measures: DVT ppx, GI ppx all questions answered case management: SNF: [facility] Supervising MD: Dr. Erika Aguilar c/d This document was generated in part using voice recognition software, occasional wrong word or sound alike substitutions may have occurred due to the inherent limitations of voice recognition software. Read the chart carefully and recognize using context, where the substitutions have occurred. Although every effort was made to edit the content, rigger chief and typing errors may occur ATTESTATION BY PHYSICIAN I have seen and examined the patient. I reviewed the documentation, medical decision making, and treatment plan as noted by the mid-level provider above. I agree with the findings and plan of care. DAVIS AGUILAR MD, ELIZABETH NP Oct 13, 2024 08:42
[2024-10-13] MEDS: RIVASTIGMINE TD SCH (09:00)
[2024-10-13] MEDS ORDERED: MELATONIN 3MG PO SCH (09:00)
[2024-10-13 09:07] LABS: BASOPHILS # (AUTO) 0.03 K/uL (0.00-0.20); BASOPHILS % (AUTO) 0.3 % (0.0-5.0); EOSINOPHILS # (AUTO) 0.01 K/uL (0.00-0.70); EOSINOPHILS % (AUTO) 0.1 % (0.0-8.0); HEMATOCRIT 41.6 % (42-54); IMMATURE GRANULOCYTE ABSOLUTE 0.06 K/uL (0-1); LYMPHOCYTES # (AUTO) 0.6 K/uL (1.0-4.8); LYMPHOCYTES % (AUTO) 6.3 % (21.0-51.0); MEAN CORPUSCULAR HEMOGLOBIN 32.2 pg (27.0-33.0); MEAN CORPUSCULAR HGB CONC 34.6 g/dL (32.0-36.0); MEAN CORPUSCULAR VOLUME 93.1 fL (79-99); MONOCYTES # (AUTO) 1.2 K/uL (0.1-1.0); MONOCYTES % (AUTO) 12.4 % (3.0-13.0); NEUTROPHILS # (AUTO) 7.6 K/uL (1.8-7.7); NEUTROPHILS % (AUTO) 80.3 % (40.0-77.0); PLATELET COUNT (AUTO) 179 K/uL (130-400); RED BLOOD CELL COUNT(AUTO) 4.47 MIL/uL (4.50-6.20); WHITE BLOOD COUNT (AUTO) 9.5 K/uL (4.8-10.8)
[2024-10-13 09:39] LABS: ALBUMIN 2.5 g/dL (3.5-5.0); BILIRUBIN,TOTAL 1.5 mg/dL (0.2-1.0); CREATININE 0.7 mg/dL (0.5-1.3); MAGNESIUM 1.8 mg/dL (1.80-2.40); POTASSIUM 3.4 mmol/L (3.5-5.1); TOTAL PROTEIN, SERUM 6.5 g/dL (6.0-8.3)
--- NOTE | 2024-10-13 10:41 | NUR ---
PT eval attempted. Unable to arouse pt to participate in tx session. RN team present.
--- NOTE | 2024-10-13 11:43 | PN ---
INFECTIOUS DISEASE PROGRESS NOTE Date of Service: Oct 13, 2024 SUBJECTIVE: This is a 74-year-old male patient who was seen and examined at bedside in room 203. Patient being provided incontinence care and monitoring reposition. Patient is unable to answer questions. Family members present at bedside was updated on the infectious Disease standpoint plan. Patient had a low-grade fever of 100.0 throughout the night but no fever this morning, current temperature is 98.8. The WBC has trended down to 9.5 today from 15.0 yesterday. The final blood cu lture and urine culture came back positive for E. coli. Patient will continue on Zosyn IV. No episodes of emesis reported. We will continue to follow patient's care. PHYSICAL EXAM EYES: Anicteric. Pupils equal and reactive. HENT: No oral thrush seen, moist Oral mucosa. NECK: Supple, no JVD or thyromegaly. LUNGS: Good air entry. No rales, no rhonchi. CARDIOVASCULAR: S1, S2 regular. No murmur heard. ABDOMEN: Soft, non tender, bowel sounds present, no organomegaly CENTRAL NERVOUS SYSTEM: Unable to answer questions. SKIN: No rashes, no swelling. LYMPHATICS: No peripheral lymphadenopathy. MUSCULOSKELETAL: No joint swelling, erythema or tenderness. EXTREMITIES: No cyanosis or clubbing. Weakness. BACK: No deformity, no pressure ulcer. GENITOURINARY: No dysuria or hematuria. Vital Sign (Last 12 Hours) 10/13/24 10/13/24 10/13/24 10/13/24 01:22 04:17 07:00 07:15 Temp 99.5 98.8 Pulse 70 58 61 54 Resp 18 18 22 18 B/P (MAP) 134/76 150/72 Pulse Ox 97 95 O2 Delivery N/A Room Air Room Air Room Air FiO2 21 10/13/24 07:19 Pulse 54 Resp 18 O2 Delivery N/A Room Air FiO2 21 Intake & Output (last 24hrs) 10/12/24 10/12/24 10/13/24 14:59 22:59 06:59 Intake Total 50.0 ml 1550.0 ml Balance 50.0 ml 1550.0 ml LABS: Laboratory: Test 10/13/24 09:01 10/12/24 16:14 10/12/24 15:50 10/11/24 13:02 Range/Units White Blood Count 9.5 4.8-10.8 K/uL Red Blood Count 4.47 L 4.50-6.20 MIL/uL Hemoglobin 14.4 14.0-18.0 g/dL Hematocrit 41.6 L 42-54 % Mean Corpuscular Volume 93.1 79-99 fL Mean Corpuscular Hemoglobin 32.2 27.0-33.0 pg Mean Corpuscular Hemoglobin Concent 34.6 32.0-36.0 g/dL Red Cell Distribution Width 13.0 11.0-15.5 % Platelet Count 179 130-400 K/uL Mean Platelet Volume 9.9 7.5-10.5 fL Immature Granulocyte % (Auto) 0.6 0-1 % Neutrophils (%) (Auto) 80.3 H 40.0-77.0 % Lymphocytes (%) (Auto) 6.3 L 21.0-51.0 % Monocytes (%) (Auto) 12.4 3.0-13.0 % Eosinophils (%) (Auto) 0.1 0.0-8.0 % Basophils (%) (Auto) 0.3 0.0-5.0 % Neutrophils # (Auto) 7.6 1.8-7.7 K/uL Lymphocytes # (Auto) 0.6 L 1.0-4.8 K/uL Monocytes # (Auto) 1.2 H 0.1-1.0 K/uL Eosinophils # (Auto) 0.01 0.00-0.70 K/uL Basophils # (Auto) 0.03 0.00-0.20 K/uL Absolute Immature Granulocyte (auto 0.06 0-1 K/uL Nucleated Red Blood Cells 0.0 0.0-0.19 % Sodium Level 141 136-145 mmol/L Potassium Level 3.4 L 3.5-5.1 mmol/L Chloride Level 106 101-111 mmol/L Carbon Dioxide Level 28 21-32 mmol/L Blood Urea Nitrogen 20 H 7-18 mg/dL Creatinine 0.7 0.5-1.3 mg/dL Glomerular Filtration Rate Calc 96 >90 mL/min Random Glucose 75 70-105 mg/dL Total Calcium 7.9 L 8.5-10.1 mg/dL Magnesium Level 1.80 1.80-2.40 mg/dL Total Bilirubin 1.5 H 0.2-1.0 mg/dL Aspartate Amino Transf (AST/SGOT) 102 H 10-37 U/L Alanine Aminotransferase (ALT/SGPT) 76 12-78 U/L Alkaline Phosphatase 55 50-136 U/L Total Creatine Kinase 955 #*H 21-232 U/L C-Reactive Protein, Quantitative 88.50 H 0.5-3.0 mg/L Total Protein 6.5 6.0-8.3 g/dL Albumin 2.5 L 3.5-5.0 g/dL Procalcitonin 0.58 H 0.05-0.5 ng/mL Blood Gas Specimen Type Arterial Arterial Blood pH 7.469 H 7.350-7.450 Arterial Blood Partial Pressure CO2 36 35-48 mmHg Arterial Blood Partial Pressure O2 69.4 L 83.0-108.0 mmHg Arterial Blood HCO3 25.7 21.0-28.0 mmol/L Arterial Blood Oxygen Saturation 95.0 94.0-98.0 % Arterial Blood Base Excess 2.3 -2.0-3.0 mmol/L Blood Gas Temperature 37.0 35.5-37.0 CELSIUS Blood Gas Vent Mode RA ROOM AIR FiO2 21.0 % Blood Gas Specimen Comment RR,HEATHER-RN Ammonia 11 11-32 umol/L Hemoglobin (Blood Gas) 15.9 13.5-17.5 g/dL Sodium (Blood Gas) 139 136-145 MMOL/L Bedside Potassium (Blood Gas) 4.1 3.4-4.5 MMOL/L Bedside Chloride (Blood Gas) 104 98-107 MMOL/L Bedside Glucose (Blood Gas) 120 H 65-95 MG/DL Bedside Ionized Calcium (Blood Gas) 1.13 L 1.15-1.33 MMOL/L Bedside Lactic Acid (Blood Gas) 2.67 H 0.36-0.75 MMOL/L Blood Gas Flow-by 10.00 0.00-15.00 L/min Test 10/11/24 13:01 10/11/24 12:40 10/11/24 11:55 Range/Units Whole Blood Glucose 128 H 70-110 MG/DL Influenza Type A Antigen Negative For Type A NEGATIVE Influenza Type B Antigen Negative For Type B NEGATIVE SARS-CoV-2, RNA, NAAT NEGATIVE SARS CoV-2 NEGATIVE Lactic Acid Level 1.8 0.8-2.5 mmol/L Thyroid Stimulating Hormone (TSH) 0.50 0.36-3.74 uIU/mL DIAGNOSTICS / RADIOLOGY: PATIENT: JUNIOR MELLO ACCT: [id number] LOC: [facility] U: [id number] AGE/SX: 74/M ROOM: 203 RE10/11/[address]: RAFFI DAVID MD : [id number] BED: 1 DIS: STATUS: ADM IN TLOC: SPEC: [id number] NASRA: 10/11/24 STATUS: COMP REQ: [id number] RECD: 10/12/[address] [facility] [address]: RAJ AGUIRRE MD SOURCE: BLOOD ENTR: 10/12/[address] [facility] [address]: NATHAN ESTES [facility]: BLOOD ORDERED: AERO ID & SENS Procedure Result Carlito Date-Time AEROBIC ID & SENSITIVITIES Final 10/13/24 [facility] DESCRIPTION: DAY 1: GRAM NEGATIVE RODS ANAEROBIC BOTTLE IDENTIFICATION AND SENSITIVITY TO FOLLOW ESCHERICHIA COLI E COLI M.I.C. RX --------- ---- AMPICILLIN <=8 S AZTREONAM <=4 S CEFAZOLIN <=2 S CEFTAZIDIME/AVIBACTAM <=8 S GENTAMICIN <=2 S LEVOFLOXACIN <=0.5 S MEROPENEM <=1 S PIPERACILLIN/TAZOBACTAM <=8 S TRIMETHOPRIM/SUFLAMETHOXAZOLE <=2/38 S ASSESSMENT: E Coli Bacteremia. Urinary tract infection with E coli. Leukocytosis. Rhabdomyolysis. Status post mechanical fall. Dementia. Debility. PLAN: Continue Zosyn IV. Continue GI prophylaxis. Fall precaution measures. Pending physical therapy evaluation. We will monitor electrolytes. This case was reviewed and discussed with my supervising physician and the above assessment and plan was formulated and agreed upon. ATTESTATION BY PHYSICIAN I have seen and examined the patient. I reviewed the documentation, medical decision making, and treatment plan as noted by the mid-level provider above. I agree with the findings and plan of care. BRYON SHELTON MD, MIRTA L [facility] Oct 13, 2024 11:43
[2024-10-13] MEDS: tamSULOsin HCL 0.4 MG CAP.ER.24H PO SCH (12:08)
[2024-10-13] MEDS: PoTASSium chl 10% ELIXIR 20MEQ 20 MEQ/15 ML UDCUP PO PRN (12:09)
[2024-10-13] MEDS: CARBIDOPA-LEVODOPA 25-100 TAB PO SCH (12:09)
--- NOTE | 2024-10-13 12:15 | NUR ---
THIS PATIENT STARTED TO COUGH DURING ADMINISTRATION OF WHOLE PILL. IT WAS SPIT BACK OUT. MEDS WERE CRUSHED AND TOLERATED WELL. MARCELLE CORRALES, ASHLYN MADE AWARE. NEW ORDER TO DOWNGRADE TEXTURE OF FOOD AND SPEECH BEDSIDE EVAL. ORDERS IN PLACE. PATIENT DOING WELL NOW. I WILL CONTINUE TO MONITOR.
--- NOTE | 2024-10-13 14:45 | NUR ---
Patient seen and evaluated. Patient noted to be somnolent but easily arouseable. As per son, patient uses a SPC at home. Patient needed significant A to roll and stand. Patient with sever retropulsion in standing. PT team to follow. Addendum: 10/13/24 at 1634 by DERRICK LE PT Amended: Links added.
--- NOTE | 2024-10-13 19:37 | PN ---
[facility] PROGRESS NOTE Date Patient Seen: Oct 13, 2024 Time of Visit: 19:34 Supervising Physician: Dr. Stratton Consulting Physician: Dr Tovar Outpatient Specialists: [ ] Inpatient Consults: [facility] PROBLEM LIST: Acute hypoxic respiratory failure POA Episodic apnea, POA Severe sepsis, POA Urinary tract infection, POA Possible aspiration pneumonia Lewy body dementia, diagnosed 2017 Alteration in mental status Feeding difficulty in adult, POA INTERVAL HISTORY: Patient was seen and examined at bedside, he was on NRM overnight given an episo de of hypoxia which is suspected due to aspiration given his advanced dementia. at bedside. Has mittens in place and sitter given his agitation No further apneic episodes reported. Arterial blood gases reveal pH of 7.4, PO2 of 139 on non-rebreather at 10 L. We will repeat these today. 10/13/2024: At the time of my evaluation, the patient was lying in bed. Family members are present at the bedside. He is awake and alert, but oriented to self. Per the staff nurse, he has intermittently agitated and attempting to exit the bed. On the monitor, the patient is on room air and is hemodynamically stable. Laboratory data today was notable for a potassium of 3.4, improving liver and total CK parameters. Blood and urine cultures positive for E coli p ansensitive. No new imaging obtained for review today. Currently, the patient remains on antibiotic therapy with IV Zosyn and is so far tolerating well. Per the staff nurse, the patient was coughing with his pills this a.m. these were later crushed and given with applesauce and tolerated well. No other complaint. REVIEW OF SYSTEMS: Unable to obtain due to alteration in mental status PHYSICAL EXAM: GENERAL: Encephalopathic HEENT: EOMI, with dry mucous membranes NECK: Supple, no JVD, trachea midline LUNGS: Coarse bilateral lung sounds HEART: Sinus Dennis on the monitor Normal S1 and S2, without murmurs ABD: Abdomen soft, nontender. Bowel sounds present EXT: No clubbing cyanosis or edema NEURO: Encephalopathic Vital Signs (last 8hr) Date Time Temp Pulse Resp B/P (MAP) Pulse Ox O2 Delivery O2 Flow Rate FiO2 10/13/24 19:23 99.0 56 18 127/74 97 Room Air 10/13/24 19:07 56 18 N/A Room Air 21 10/13/24 16:00 98.1 56 20 151/76 99 Room Air LABS: Hematology Labs: Test 10/13/24 09:01 Range/Units White Blood Count 9.5 4.8-10.8 K/uL Red Blood Count 4.47 L 4.50-6.20 MIL/uL Hemoglobin 14.4 14.0-18.0 g/dL Hematocrit 41.6 L 42-54 % Mean Corpuscular Volume 93.1 79-99 fL Mean Corpuscular Hemoglobin 32.2 27.0-33.0 pg Mean Corpuscular Hemoglobin Concent 34.6 32.0-36.0 g/dL Red Cell Distribution Width 13.0 11.0-15.5 % Platelet Count 179 130-400 K/uL Mean Platelet Volume 9.9 7.5-10.5 fL Immature Granulocyte % (Auto) 0.6 0-1 % Neutrophils (%) (Auto) 80.3 H 40.0-77.0 % Lymphocytes (%) (Auto) 6.3 L 21.0-51.0 % Monocytes (%) (Auto) 12.4 3.0-13.0 % Eosinophils (%) (Auto) 0.1 0.0-8.0 % Basophils (%) (Auto) 0.3 0.0-5.0 % Neutrophils # (Auto) 7.6 1.8-7.7 K/uL Lymphocytes # (Auto) 0.6 L 1.0-4.8 K/uL Monocytes # (Auto) 1.2 H 0.1-1.0 K/uL Eosinophils # (Auto) 0.01 0.00-0.70 K/uL Basophils # (Auto) 0.03 0.00-0.20 K/uL Absolute Immature Granulocyte (auto 0.06 0-1 K/uL Nucleated Red Blood Cells 0.0 0.0-0.19 % Chemistry Labs: Test 10/13/24 09:01 10/12/24 15:50 Range/Units Sodium Level 141 136-145 mmol/L Potassium Level 3.4 L 3.5-5.1 mmol/L Chloride Level 106 101-111 mmol/L Carbon Dioxide Level 28 21-32 mmol/L Blood Urea Nitrogen 20 H 7-18 mg/dL Creatinine 0.7 0.5-1.3 mg/dL Glomerular Filtration Rate Calc 96 >90 mL/min Random Glucose 75 70-105 mg/dL Total Calcium 7.9 L 8.5-10.1 mg/dL Magnesium Level 1.80 1.80-2.40 mg/dL Total Bilirubin 1.5 H 0.2-1.0 mg/dL Aspartate Amino Transf (AST/SGOT) 102 H 10-37 U/L Alanine Aminotransferase (ALT/SGPT) 76 12-78 U/L Alkaline Phosphatase 55 50-136 U/L Total Creatine Kinase 955 #*H 21-232 U/L C-Reactive Protein, Quantitative 88.50 H 0.5-3.0 mg/L Total Protein 6.5 6.0-8.3 g/dL Albumin 2.5 L 3.5-5.0 g/dL Procalcitonin 0.58 H 0.05-0.5 ng/mL Ammonia 11 11-32 umol/L DIAGNOSTICS / RADIOLOGY RESULTS: [ ] PLAN 10/13/2024: For now, going to continue current management for the patient. We will follow the antibiotic course per the guidance of the Infectious Disease specialist. Speech therapy consultation was obtained to evaluate and treat as necessary. I did discuss with the patient's son at the bedside regarding the plans for discharge as the patient may not be safe for discharge home. Case management consultation for placement has been requested. We will continue to monitor the progress of the patient will continue to provide general supportive care, GI and DVT prophylaxis. Further orders per attending MD and hospital course. NEURO: Minimize central acting medications as possible. Maintain fall precautions, adequate lighting during the day PULMONARY: Supplemental 02 as needed. Maintain aspiration precautions at all times CARDIOVASCULAR: Follow hemodynamics. Vital signs per facility protocol GI & NUTRITION: Continue with nutritional support. Continue stool softeners and laxatives as needed. KIDNEYS & ELECTROLYTES: Strict monitoring of intake, output and overall fluid balance. Avoid nephrotoxic medications to the extent possible. Medications to be dosed according to renal function. Monitor electrolytes and replace as needed ENDOCRINE: Maintain blood glucose between 100-180 at all times. Hypoglycemia protocol in place INFECTIOUS DISEASE: Trend temperature, WBC and procalcitonin level Follow cultures, deescalate antibiotics as soon as possible. Panculture if new onset fever ONCOLOGY/HEMATOLOGY/COAGULATION: Monitor for s/s of bleeding Monitor hemoglobin, coagulation studies as needed SKIN: Pressure ulcer prevention per facility protocol Specialty mattress ORTHO/REHAB: Continue PT/OT Prophylaxis: Continue GI and DVT prophylaxis Code Status: Full Resuscitation Disposition: TBD Other: Total patient care time exceeds 35 minutes excluding all procedures. LESTER KEY NP Oct 13, 2024 19:37
--- NOTE | 2024-10-13 20:30 | NUR ---
BEDSIDE SWALLOW EVAL COMPLETED. + s/s of aspiration. Recommend mechanical soft/chopped solids and nectar thick liquids, and crushed meds with pureed as tolerated. No dual consistencies/textures COMPENSATORY STRATEGIES 1. Sit upright 2. slow oral intake 3. Alt liquids and solids 4. Check for pocketing INCLUSION PARAEDUCATOR reviewed results and recommendations with patient, and nurse Russel. INCLUSION PARAEDUCATOR educated patient on risk and consequences of aspiration. Speech therapy warranted at this time to address dysphagia. All questions answered. RECOMMENDATIONS: Dysphagia therapy 1-3x week to improve oral and pharyngeal swallow: LTG#1: Pt will tolerate least restrictive diet to meet nutrition/hydration with no s/s of aspiration. LTG#2: Skilled education Pt/family/staff STG#1: Pt will participate in laryngeal elevation/excursion exercises with 90% accuracy. STG#2: Pt will participate in tongue based retraction exercises with 90% accuracy with min asst. STG#3: Pt will participate in oral motor exercises with 90% accuracy with min asst. STG#4 Pt will tolerate a modified diet of mechanical soft chopped solids and thin liquids with no overt s/s of aspiration. STG#5 Pt will participate in therapeutic trials of regular solids and thin liquids with no overt s/s of aspiration. STG#6: Skilled education with pt/family/staff Addendum: 10/13/24 at 2138 by LINDA CHAUDHARY Amended: Links added.
[2024-10-13] MEDS: MELATONIN 3MG PO SCH (21:00)
[2024-10-13] MEDS ORDERED: MELATONIN 5 MG TABLET PO SCH (21:00)
[2024-10-13] MEDS: SIMVASTATIN 40 MG TAB PO SCH (21:00)
[2024-10-14] VITALS (13 sets, daily range): BP systolic 131–155; BP diastolic 51–99; PULSE 53–71; RESP 18–23; TEMP 98.6–100.1; O2SAT 98–100
[2024-10-14 04:12] LABS: BASOPHILS # (AUTO) 0.04 K/uL (0.00-0.20); BASOPHILS % (AUTO) 0.3 % (0.0-5.0); EOSINOPHILS # (AUTO) 0.05 K/uL (0.00-0.70); EOSINOPHILS % (AUTO) 0.4 % (0.0-8.0); HEMATOCRIT 40.4 % (42-54); IMMATURE GRANULOCYTE ABSOLUTE 0.06 K/uL (0-1); LYMPHOCYTES % (AUTO) 8.4 % (21.0-51.0); MEAN CORPUSCULAR HEMOGLOBIN 31.3 pg (27.0-33.0); MEAN CORPUSCULAR HGB CONC 34.4 g/dL (32.0-36.0); MONOCYTES # (AUTO) 1.3 K/uL (0.1-1.0); MONOCYTES % (AUTO) 11.3 % (3.0-13.0); NEUTROPHILS # (AUTO) 9.3 K/uL (1.8-7.7); NEUTROPHILS % (AUTO) 79.1 % (40.0-77.0); PLATELET COUNT (AUTO) 193 K/uL (130-400); RED BLOOD CELL COUNT(AUTO) 4.44 MIL/uL (4.50-6.20); RED CELL DISTRIBUTION WIDTH 12.8 % (11.0-15.5); WHITE BLOOD COUNT (AUTO) 11.7 K/uL (4.8-10.8)
[2024-10-14 04:32] LABS: ALBUMIN 2.5 g/dL (3.5-5.0); BILIRUBIN,TOTAL 1.3 mg/dL (0.2-1.0); CREATININE 0.6 mg/dL (0.5-1.3); MAGNESIUM 1.9 mg/dL (1.80-2.40); POTASSIUM 3.5 mmol/L (3.5-5.1); TOTAL PROTEIN, SERUM 6.4 g/dL (6.0-8.3)
--- NOTE | 2024-10-14 11:30 | PN ---
[facility] PROGRESS NOTE Date of Service: Oct 14, 2024 Time of Service: 11:15 SUBJECTIVE: [ ] This is a 74-year-old male that was three 2024 presents in ER with altered radiation admit to status and ground level fall and found to have severe sepsis and UTI. Tele neuro was done suspecting encephalopathy due to infection over acute ischemic stroke patient has a history of Lewy body progression. Patient also appear hypoxia was placed on non-rebreather on admission he is currently on nasal cannula4 L. Family apparently do not Wanna have aggressive measures hospice was discussed with patient family per electrical high tension tester's. Patient was seen in ED patient apparently had a fall in ED unwitnessed he reports of right elbow pain in reports he bumps his head we will get a CT head and x-ray of right elbow. Patient has underlying Lewy dementia. He is high- risk for falls therefore one-to-one sitter we will be applied to his care. No family at bedside. Patient was able to answer all my questions. And follow commands 10/13/24 patient is seen patient is awake family at bedside son reports this is his norm mentation there are requesting SNF: We will wait for ID recommendations repeat cultures so far negative blood cultures on admission E coli. We will continue with broad-spectrum antibiotics. 10/14/2024. Patient was seen and examined patient appears fragile and weak. Patient was evaluated by speech and given to patient signs of aspiration. Cough during administration of whole pills. Bedside swallow eval positive for aspiration. Recommend mechanical soft chopped solids with nectar thick liquids. 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 1300 the patient family proceed with DNR STATUS. social services counselor for hospice REVIEW OF SYSTEMS ROS is limited since patient is unable to participate in conversation PHYSICAL EXAM GENERAL APPEARANCE: Patient appears lethargic at bedside. Moans when asked about his name NEUROLOGICAL: Patient does not follow commands for neurological exam. Patient has tremors in the upper extremity HEENT: Face is symmetric. Pupils are equal and reactive. Extraocular movements are intact. NECK: Supple. No JVD. No thyromegaly. No submental, submandibular, pre- /postauricular, occipital or supraclavicular lymphadenopathy. CHEST: Normal chest expansion. No Telemetry. LUNGS: Absence of any rales, rhonchi or any wheezing. CARDIOVASCULAR: Regular. S1 and S2 normal. No appreciable rubs, murmurs or gallops. ABDOMEN: Soft, nontender, and nondistended. There is no rebound, voluntary guarding, or rigidity. : Deferred. No Friedman. EXTREMITIES: Non-edematous and not cyanotic. No clubbing. Good capillary refill. SKIN: No skin breakdown. Vital Signs (last 8hr) Date Time Temp Pulse Resp B/P (MAP) Pulse Ox O2 Delivery O2 Flow Rate FiO2 10/14/24 08:24 98.6 67 20 132/55 99 Room Air 10/14/24 07:44 56 18 N/A Room Air 21 10/14/24 03:34 99.0 53 18 153/70 95 Room Air LABS: Laboratory: Test 10/14/24 04:01 10/13/24 09:01 10/12/24 16:14 10/12/24 15:50 Range/Units White Blood Count 11.7 H 4.8-10.8 K/uL Red Blood Count 4.44 L 4.50-6.20 MIL/uL Hemoglobin 13.9 L 14.0-18.0 g/dL Hematocrit 40.4 L 42-54 % Mean Corpuscular Volume 91.0 79-99 fL Mean Corpuscular Hemoglobin 31.3 27.0-33.0 pg Mean Corpuscular Hemoglobin Concent 34.4 32.0-36.0 g/dL Red Cell Distribution Width 12.8 11.0-15.5 % Platelet Count 193 130-400 K/uL Mean Platelet Volume 9.8 7.5-10.5 fL Immature Granulocyte % (Auto) 0.5 0-1 % Neutrophils (%) (Auto) 79.1 H 40.0-77.0 % Lymphocytes (%) (Auto) 8.4 L 21.0-51.0 % Monocytes (%) (Auto) 11.3 3.0-13.0 % Eosinophils (%) (Auto) 0.4 0.0-8.0 % Basophils (%) (Auto) 0.3 0.0-5.0 % Neutrophils # (Auto) 9.3 H 1.8-7.7 K/uL Lymphocytes # (Auto) 1.0 1.0-4.8 K/uL Monocytes # (Auto) 1.3 H 0.1-1.0 K/uL Eosinophils # (Auto) 0.05 0.00-0.70 K/uL Basophils # (Auto) 0.04 0.00-0.20 K/uL Absolute Immature Granulocyte (auto 0.06 0-1 K/uL Nucleated Red Blood Cells 0.0 0.0-0.19 % Sodium Level 136 136-145 mmol/L Potassium Level 3.5 3.5-5.1 mmol/L Chloride Level 104 101-111 mmol/L Carbon Dioxide Level 28 21-32 mmol/L Blood Urea Nitrogen 17 7-18 mg/dL Creatinine 0.6 0.5-1.3 mg/dL Glomerular Filtration Rate Calc 101 >90 mL/min Random Glucose 110 H 70-105 mg/dL Total Calcium 7.9 L 8.5-10.1 mg/dL Magnesium Level 1.90 1.80-2.40 mg/dL Total Bilirubin 1.3 H 0.2-1.0 mg/dL Aspartate Amino Transf (AST/SGOT) 75 H 10-37 U/L Alanine Aminotransferase (ALT/SGPT) 77 12-78 U/L Alkaline Phosphatase 55 50-136 U/L Total Protein 6.4 6.0-8.3 g/dL Albumin 2.5 L 3.5-5.0 g/dL Total Creatine Kinase 955 #*H 21-232 U/L C-Reactive Protein, Quantitative 88.50 H 0.5-3.0 mg/L Procalcitonin 0.58 H 0.05-0.5 ng/mL Blood Gas Specimen Type Arterial Arterial Blood pH 7.469 H 7.350-7.450 Arterial Blood Partial Pressure CO2 36 35-48 mmHg Arterial Blood Partial Pressure O2 69.4 L 83.0-108.0 mmHg Arterial Blood HCO3 25.7 21.0-28.0 mmol/L Arterial Blood Oxygen Saturation 95.0 94.0-98.0 % Arterial Blood Base Excess 2.3 -2.0-3.0 mmol/L Blood Gas Temperature 37.0 35.5-37.0 CELSIUS Blood Gas Vent Mode RA ROOM AIR FiO2 21.0 % Blood Gas Specimen Comment RR,HEATHER-RN Ammonia 11 11-32 umol/L Current Medications Medications (Trade) Dose Ordered Sig/Edgar Route PRN Reason Start Time Stop Time Status Last Admin Dose Admin Acetaminophen (TYLenol 500MG TAB) 500 mg Q6H PRN PO MILD PAIN (1-3) 10/11/24 12:30 11/10/24 12:29 10/11/24 13:02 500 MG Albuterol Sulfate (Proventil 0.083% 2.5mg/3ml) 2.5MG Q6H PRN IH SHORTNESS OF BREATH 10/11/24 12:30 11/10/24 12:29 10/13/24 07:15 2.5 MG Brimonidine Tartrate (Alphagan P) 1 DROP BID OP 10/12/24 21:00 11/11/24 20:59 10/14/24 09:18 1 ML Carbidopa/Levodopa (Sinemet 25-100 Tab) 1 each DAILY PO 10/13/24 09:00 11/12/24 08:59 10/14/24 09:16 1 EACH Famotidine (Pepcid 20mg Vial) 20 mg BID IV 10/11/24 21:00 11/10/24 20:59 10/14/24 09:16 20 MG Home Med (Home Medication) (Timolol Maleate 1 DROP) BID OP 10/12/24 21:00 11/11/24 20:59 10/13/24 22:31 1 DROP Home Med (Home Medication) Entacapone 200 MG TID PO 10/12/24 14:00 11/11/24 13:59 10/14/24 09:18 1 TAB Home Med (Home Medication) MELATONIN 3MG DAILY PO 10/13/24 09:00 10/13/24 11:17 DC Home Med (Home Medication) MELATONIN 3MG HS PO 10/13/24 21:00 11/12/24 20:59 Home Med (Home Medication) Rivastigmine 4.6MG/24H PATCH DAILY TD 10/13/24 09:00 11/12/24 08:59 10/13/24 09:00 1 EACH Home Med (Home Medication) TAKE ONE HALF TABLET... HS PO 10/13/24 21:00 11/12/24 20:59 Latanoprost (Xalatan) 1 DROP HS OP 10/12/24 21:00 11/11/24 20:59 10/13/24 22:32 1 DROP Magnesium Sulfate 50 ml @ 0 mls/hr PROTOCOL PRN IV low mag level 10/12/24 09:30 11/11/24 09:29 Melatonin (Melatonin) 5 mg HS PO 10/13/24 21:00 10/13/24 13:03 DC Piperacillin Sod/ Tazobactam Sod (Zosyn 3.375gm+NS 50ml) 3.375 gm Q8H IVPB 10/11/24 13:00 10/21/24 12:59 10/14/24 05:11 3.375 GM Potassium Chloride 100 ml @ 100 mls/hr AD PRN IV POTASSIUM PROTOCOL 10/12/24 09:30 11/11/24 09:29 Potassium Chloride (K-Dur/Klor-Con 20meq) 20 meq AD PRN PO POTASSIUM PROTOCOL 10/12/24 09:30 11/11/24 09:29 Potassium Chloride (KCl 10% Elixir 20meq/15ml) 20 meq AD PRN PO POTASSIUM PROTOCOL 10/12/24 09:30 11/11/24 09:29 10/14/24 09:23 20 MEQ Simvastatin (zoCOR) 40 mg HS PO 10/12/24 21:00 10/13/24 13:11 DC Sodium Chloride 1,000 ml @ 125 mls/hr Q8H IV 10/11/24 12:30 11/10/24 12:29 10/14/24 05:11 125 MLS/HR Sodium Chloride (NS 50ml) 50 ml AD IV 10/11/24 13:00 10/11/24 12:35 DC Tamsulosin HCl (FloMAX) 0.4 mg DAILY PO 10/13/24 09:00 11/12/24 08:59 10/14/24 09:16 0.4 MG DIAGNOSTICS / RADIOLOGY: [ ] ASSESSMENT: Bacteremia gram negative E coli POA Metabolic encephalopathy POA Suspecting sepsis secondary to UTI POA Orophargeal dysphasia POA: Acute respiratory failure with hypoxia requiring oxygen supplemental non- rebreather POA improved Ground Fall unwitnessed POA acute Rhabdomyolysis POA Possible URI with associated sputum production vs Aspiration Pneumonia UTI Gram negative e coli POA chronic problems: Lewy body dementia Hyperlipidemia Debility Diabetes mellitus type 2 PLAN: Admit: PCCU condition: Guarded Status: Full code IVF: NS at 1:25 ML an hour We will continue to monitor CK levels we will adjust fluids accordingly Consultants tele neuro, electrical high tension tester's and Infectious disease Antibiotics: Zosyn 3.375 g every 8 hours WBC improving blood with Ecoli and urine. resp cultures negative Oxygen supplement to keep O2 sats above 92%. Labs cbc, cmp, mag+ Inflammatory markers every other day. We will monitor trends Replace electrolytes as needed as per protocol to keep potassium above 4.0 magnesium 2.0. Home medications reviewed and reconciled. Flomax 0.4 mg daily, carbidopa and levodopa, rivastigmine and simvastatin speech positive for aspiration. We will continue with mechanical soft nectar fluids pureed diet.: aspiration precaution HOB at 45 degree. fall precaution Decubitus precautions reposition every2 hours aggressive offloading Pain management: Tylenol 650 as needed Supportive measures: DVT ppx, GI ppx all questions answered case management: SNF: [facility]; social services counselor: hospice dnr status Supervising MD: Dr. Erika Aguilar c/d This document was generated in part using voice recognition software, occasional wrong word or sound alike substitutions may have occurred due to the inherent limitations of voice recognition software. Read the chart carefully and recognize using context, where the substitutions have occurred. Although every effort was made to edit the content, fishery division chief and typing errors may occur ATTESTATION BY PHYSICIAN I have seen and examined the patient. I reviewed the documentation, medical decision making, and treatment plan as noted by the mid-level provider above. I agree with the findings and plan of care. DAVIS AGUILAR MD, ELIZABETH NP Oct 14, 2024 11:30
[2024-10-14] MEDS: CEFTRIAXONE 2GM VIAL IVPB SCH (12:27)
--- NOTE | 2024-10-14 13:04 | NUR ---
NEXT OF KIN: SON: ANDREA MELLO [phone] SON: CHRISTOFER MELLO [phone]
--- NOTE | 2024-10-14 14:45 | PN ---
INFECTIOUS DISEASE PROGRESS NOTE Date of Service: Oct 14, 2024 SUBJECTIVE: This is a 74-year-old male patient who was seen and examined at bedside in room 203. Patient is awake but unable to follow commands during our visit. An NG tube has been placed to be able to administer medications. Patient is pending a repeat bedside swallow evaluation this afternoon. Patient's sons visiting at bedside. Final urine culture and blood cultures was came back positive for E coli. The WBC is 11.7 but no fever, temperature is 98.8. We will discontinue Zosyn and start patient on ceftriaxone. We will continue to follow patient's care. PHYSICAL EXAM EYES: Anicteric. Pupils equal and reactive. HENT: No oral thrush seen, moist Oral mucosa. NECK: Supple, no JVD or thyromegaly. LUNGS: Good air entry. No rales, no rhonchi. CARDIOVASCULAR: S1, S2 regular. No murmur heard. ABDOMEN: Soft, non tender, bowel sounds present, no organomegaly CENTRAL NERVOUS SYSTEM: Unable to answer questions. SKIN: No rashes, no swelling. LYMPHATICS: No peripheral lymphadenopathy. MUSCULOSKELETAL: No joint swelling, erythema or tenderness. EXTREMITIES: No cyanosis or clubbing. Weakness. BACK: No deformity, no pressure ulcer. GENITOURINARY: No dysuria or hematuria. Vital Sign (Last 12 Hours) 10/14/24 10/14/24 10/14/24 10/14/24 03:34 07:44 08:24 12:00 Temp 99.0 98.6 98.8 Pulse 53 56 67 68 Resp 18 18 20 20 B/P (MAP) 153/70 132/55 149/51 Pulse Ox 95 99 96 O2 Delivery Room Air N/A Room Air Room Air Room Air FiO2 21 10/14/24 13:09 Pulse Ox 100 O2 Delivery Room Air* O2 Flow Rate 0 FiO2 21 Intake & Output (last 24hrs) 10/13/24 10/13/24 10/14/24 15:00 23:00 07:00 Intake Total 2440.0 ml 1790.0 ml Balance 2440.0 ml 1790.0 ml LABS: Laboratory: Test 10/14/24 04:01 10/13/24 09:01 10/12/24 16:14 10/12/24 15:50 Range/Units White Blood Count 11.7 H 4.8-10.8 K/uL Red Blood Count 4.44 L 4.50-6.20 MIL/uL Hemoglobin 13.9 L 14.0-18.0 g/dL Hematocrit 40.4 L 42-54 % Mean Corpuscular Volume 91.0 79-99 fL Mean Corpuscular Hemoglobin 31.3 27.0-33.0 pg Mean Corpuscular Hemoglobin Concent 34.4 32.0-36.0 g/dL Red Cell Distribution Width 12.8 11.0-15.5 % Platelet Count 193 130-400 K/uL Mean Platelet Volume 9.8 7.5-10.5 fL Immature Granulocyte % (Auto) 0.5 0-1 % Neutrophils (%) (Auto) 79.1 H 40.0-77.0 % Lymphocytes (%) (Auto) 8.4 L 21.0-51.0 % Monocytes (%) (Auto) 11.3 3.0-13.0 % Eosinophils (%) (Auto) 0.4 0.0-8.0 % Basophils (%) (Auto) 0.3 0.0-5.0 % Neutrophils # (Auto) 9.3 H 1.8-7.7 K/uL Lymphocytes # (Auto) 1.0 1.0-4.8 K/uL Monocytes # (Auto) 1.3 H 0.1-1.0 K/uL Eosinophils # (Auto) 0.05 0.00-0.70 K/uL Basophils # (Auto) 0.04 0.00-0.20 K/uL Absolute Immature Granulocyte (auto 0.06 0-1 K/uL Nucleated Red Blood Cells 0.0 0.0-0.19 % Sodium Level 136 136-145 mmol/L Potassium Level 3.5 3.5-5.1 mmol/L Chloride Level 104 101-111 mmol/L Carbon Dioxide Level 28 21-32 mmol/L Blood Urea Nitrogen 17 7-18 mg/dL Creatinine 0.6 0.5-1.3 mg/dL Glomerular Filtration Rate Calc 101 >90 mL/min Random Glucose 110 H 70-105 mg/dL Total Calcium 7.9 L 8.5-10.1 mg/dL Magnesium Level 1.90 1.80-2.40 mg/dL Total Bilirubin 1.3 H 0.2-1.0 mg/dL Aspartate Amino Transf (AST/SGOT) 75 H 10-37 U/L Alanine Aminotransferase (ALT/SGPT) 77 12-78 U/L Alkaline Phosphatase 55 50-136 U/L Total Creatine Kinase 529 #*H 21-232 U/L Total Protein 6.4 6.0-8.3 g/dL Albumin 2.5 L 3.5-5.0 g/dL C-Reactive Protein, Quantitative 88.50 H 0.5-3.0 mg/L Procalcitonin 0.58 H 0.05-0.5 ng/mL Blood Gas Specimen Type Arterial Arterial Blood pH 7.469 H 7.350-7.450 Arterial Blood Partial Pressure CO2 36 35-48 mmHg Arterial Blood Partial Pressure O2 69.4 L 83.0-108.0 mmHg Arterial Blood HCO3 25.7 21.0-28.0 mmol/L Arterial Blood Oxygen Saturation 95.0 94.0-98.0 % Arterial Blood Base Excess 2.3 -2.0-3.0 mmol/L Blood Gas Temperature 37.0 35.5-37.0 CELSIUS Blood Gas Vent Mode RA ROOM AIR FiO2 21.0 % Blood Gas Specimen Comment RR,HEATHER-RN Ammonia 11 11-32 umol/L DIAGNOSTICS / RADIOLOGY: PATIENT: JUNIOR MELLO ACCT: [id number] LOC: [facility] U: [id number] AGE/SX: 74/M ROOM: 203 RE10/11/[address]: RAFFI DAVID MD : 1950 BED: 1 DIS: STATUS: ADM IN TLOC: SPEC: [id number] NASRA: 10/11/24 STATUS: COMP REQ: [id number] RECD: 10/11/[address]: RAJ AGUIRRE MD SOURCE: URINE CATH ENTR: 10/11/24 [facility] DR: NATHAN ESTES [facility]: CATHER[facility] ORDERED: AERO ID & SENS Procedure Result Carlito Date-Time AEROBIC ID & SENSITIVITIES Final 10/13/24-621 MRL COLONY DESCRIPTION: DAY 1: COLONY COUNT: >100,000 CFU/ML GRAM NEGATIVE RODS IDENTIFICATION AND SENSITIVITY TO FOLLOW ESCHERICHIA COLI E COLI M.I.C. RX --------- ---- AMPICILLIN <=8 S AZTREONAM <=4 S CEFAZOLIN <=2 S CEFTAZIDIME/AVIBACTAM <=8 S GENTAMICIN <=2 S LEVOFLOXACIN <=0.5 S NITROFURANTOIN <=32 S MEROPENEM <=1 S PIPERACILLIN/TAZOBACTAM <=8 S TRIMETHOPRIM/SUFLAMETHOXAZOLE <=2/38 S ASSESSMENT: E Coli Bacteremia. Urinary tract infection with E coli. Leukocytosis. Rhabdomyolysis. Status post mechanical fall. Dementia. Debility. PLAN: Discontinue Zosyn IV. Start patient on ceftriaxone2 g IV every 24 hours. Continue GI prophylaxis. Fall precaution measures. Continue Aspiration precautions. We will monitor electrolytes. This case was reviewed and discussed with my supervising physician and the above assessment and plan was formulated and agreed upon. ATTESTATION BY PHYSICIAN I have seen and examined the patient. I reviewed the documentation, medical decision making, and treatment plan as noted by the mid-level provider above. I agree with the findings and plan of care. BRYON SHELTON MD, [facility] Oct 14, 2024 14:45
--- NOTE | 2024-10-14 16:06 | PN ---
[facility] PROGRESS NOTE Date Patient Seen: Oct 14, 2024 Time of Visit: 15:56 Supervising Physician: NATHANIEL RANKIN Consulting Physician: Dr Tovar Outpatient Specialists: [ ] Inpatient Consults: [facility] PROBLEM LIST: Acute hypoxic respiratory failure POA Recurrent aspiration episodes with suspected superimposed PNA Oropharyngeal Dysphagia secondary to Advanced Dementia , Ng tube in place Episodic apnea, POA, secondary to above Severe sepsis, POA Urinary tract infection, POA Lewy body dementia, diagnosed 2017 Alteration in mental status Feeding difficulty in adult, POA INTERVAL HISTORY: Patient was seen and examined at bedside, he was on NRM overnight given an episo de of hypoxia which is suspected due to aspiration given his advanced dementia. at bedside. Has mittens in place and sitter given his agitation No further apneic episodes reported. Arterial blood gases reveal pH of 7.4, PO2 of 139 on non-rebreather at 10 L. We will repeat these today. 10/13/2024: At the time of my evaluation, the patient was lying in bed. Family members are present at the bedside. He is awake and alert, but oriented to self. Per the staff nurse, he has intermittently agitated and attempting to exit the bed. On the monitor, the patient is on room air and is hemodynamically stable. Laboratory data today was notable for a potassium of 3.4, improving liver and total CK parameters. Blood and urine cultures positive for E coli p ansensitive. No new imaging obtained for review today. Currently, the patient remains on antibiotic therapy with IV Zosyn and is so far tolerating well. Per the staff nurse, the patient was coughing with his pills this a.m. these were later crushed and given with applesauce and tolerated well. No other complaint. - Patient was seen and evaluated by me at bedside, he is agitated, encephalopathic, not following commands . Ng tube has been placed as he suffered another aspiration episode this morning . Patient did of Note have a speech evaluation yesterday and passed with mechanical soft and nectar thick , however , as stated above patient had aspiratoin episode Sons are at bedside, we discussed patients poor overall prognosis and high risk of recurrent aspiration. At this time they would like to continue a NG tube in place and reassess him once his encephalopathy improves. Continues on PRN oxygen supplementation and we highly suggest he kees his HOB elevated at all times. REVIEW OF SYSTEMS: Unable to obtain due to alteration in mental status PHYSICAL EXAM: GENERAL: Encephalopathic,agitated HEENT: EOMI, with dry mucous membranes, ng tube to right nare NECK: Supple, no JVD, trachea midline LUNGS: Coarse bilateral lung sounds HEART: Sinus Dennis on the monitor Normal S1 and S2, without murmurs ABD: Abdomen soft, nontender. Bowel sounds present EXT: No clubbing cyanosis or edema NEURO: Encephalopathic, not following commands Vital Signs (last 8hr) Date Time Temp Pulse Resp B/P (MAP) Pulse Ox O2 Delivery O2 Flow Rate FiO2 10/14/24 13:09 100 Room Air* 0 21 10/14/24 12:00 98.8 68 20 149/51 96 Room Air 10/14/24 08:24 98.6 67 20 132/55 99 Room Air LABS: Hematology Labs: Test 10/14/24 04:01 Range/Units White Blood Count 11.7 H 4.8-10.8 K/uL Red Blood Count 4.44 L 4.50-6.20 MIL/uL Hemoglobin 13.9 L 14.0-18.0 g/dL Hematocrit 40.4 L 42-54 % Mean Corpuscular Volume 91.0 79-99 fL Mean Corpuscular Hemoglobin 31.3 27.0-33.0 pg Mean Corpuscular Hemoglobin Concent 34.4 32.0-36.0 g/dL Red Cell Distribution Width 12.8 11.0-15.5 % Platelet Count 193 130-400 K/uL Mean Platelet Volume 9.8 7.5-10.5 fL Immature Granulocyte % (Auto) 0.5 0-1 % Neutrophils (%) (Auto) 79.1 H 40.0-77.0 % Lymphocytes (%) (Auto) 8.4 L 21.0-51.0 % Monocytes (%) (Auto) 11.3 3.0-13.0 % Eosinophils (%) (Auto) 0.4 0.0-8.0 % Basophils (%) (Auto) 0.3 0.0-5.0 % Neutrophils # (Auto) 9.3 H 1.8-7.7 K/uL Lymphocytes # (Auto) 1.0 1.0-4.8 K/uL Monocytes # (Auto) 1.3 H 0.1-1.0 K/uL Eosinophils # (Auto) 0.05 0.00-0.70 K/uL Basophils # (Auto) 0.04 0.00-0.20 K/uL Absolute Immature Granulocyte (auto 0.06 0-1 K/uL Nucleated Red Blood Cells 0.0 0.0-0.19 % Chemistry Labs: Test 10/14/24 04:01 10/13/24 09:01 Range/Units Sodium Level 136 136-145 mmol/L Potassium Level 3.5 3.5-5.1 mmol/L Chloride Level 104 101-111 mmol/L Carbon Dioxide Level 28 21-32 mmol/L Blood Urea Nitrogen 17 7-18 mg/dL Creatinine 0.6 0.5-1.3 mg/dL Glomerular Filtration Rate Calc 101 >90 mL/min Random Glucose 110 H 70-105 mg/dL Total Calcium 7.9 L 8.5-10.1 mg/dL Magnesium Level 1.90 1.80-2.40 mg/dL Total Bilirubin 1.3 H 0.2-1.0 mg/dL Aspartate Amino Transf (AST/SGOT) 75 H 10-37 U/L Alanine Aminotransferase (ALT/SGPT) 77 12-78 U/L Alkaline Phosphatase 55 50-136 U/L Total Creatine Kinase 529 #*H 21-232 U/L Total Protein 6.4 6.0-8.3 g/dL Albumin 2.5 L 3.5-5.0 g/dL C-Reactive Protein, Quantitative 88.50 H 0.5-3.0 mg/L Procalcitonin 0.58 H 0.05-0.5 ng/mL DIAGNOSTICS / RADIOLOGY RESULTS: [ ] PLAN Recommend MRI of brain Nh3, ABGs ,RPR Continue with Ng tube in place for nutrition supplementation with Head of bed elevated at 35-45 degrees at all times. Continue zosyn for UTI and suspected underlying aspiration pna. RPT CXR in AM to follow interval change Poor overall prognosis - recommend Goals of care discussion with family/ Patient very deconditioned and cachexia is noted . Do recommend Neurology input if okay with primary NEURO: Minimize central acting medications as possible. Maintain fall precautions, adequate lighting during the day PULMONARY: Supplemental 02 as needed. Maintain aspiration precautions at all times CARDIOVASCULAR: Follow hemodynamics. Vital signs per facility protocol GI & NUTRITION: Continue with nutritional support. Continue stool softeners and laxatives as needed. KIDNEYS & ELECTROLYTES: Strict monitoring of intake, output and overall fluid balance. Avoid nephrotoxic medications to the extent possible. Medications to be dosed according to renal function. Monitor electrolytes and replace as needed ENDOCRINE: Maintain blood glucose between 100-180 at all times. Hypoglycemia protocol in place INFECTIOUS DISEASE: Trend temperature, WBC and procalcitonin level Follow cultures, deescalate antibiotics as soon as possible. Panculture if new onset fever ONCOLOGY/HEMATOLOGY/COAGULATION: Monitor for s/s of bleeding Monitor hemoglobin, coagulation studies as needed SKIN: Pressure ulcer prevention per facility protocol Specialty mattress ORTHO/REHAB: Continue PT/OT Prophylaxis: Continue GI and DVT prophylaxis Code Status: Full Resuscitation Disposition: TBD Other: Total patient care time exceeds 35 minutes excluding all procedures. WILLIAM STACK Oct 14, 2024 16:06
--- NOTE | 2024-10-14 17:16 | NUR ---
CC SPEECH NOTE: New order for bedside came in 10/14/24. Patient had been evaluated 10/13/24 and placed on a chopped solid/nectar thick liquid diet. Spoke to nurse Flor who informed that order will be canceled as patient will be going to Hospice care. All questions answered. Addendum: 10/14/24 at 1718 by LINDA CHAUDHARY Amended: Links added.
[2024-10-14] MEDS ORDERED: ZOSYN 3.375GM +NS 50ML IV SCH (21:00)
[2024-10-14] MEDS: acetaMINOPHEN 650 MG SUPPOSITORY RC PRN (23:15)
[2024-10-15] VITALS (9 sets, daily range): BP systolic 118–166; BP diastolic 47–74; PULSE 61–122; RESP 18–22; TEMP 97.9–101.8; O2SAT 92–98
--- NOTE | 2024-10-15 02:15 | NUR ---
IV/NGT IV SITE LEAKING, REMOVED, DRSG APPLIED, SECURED WITH TAPE, NEW IV ACCESS OBTAINED 20 G RFA X 1 ATTEMPT NGT DISLODGED, REMOVED, NEW NGT INSERTED WITH 16 F, TOLERATED WELL, SECURED WITH TAPE, PLACEMENT VERIFIED CONTINUE WITH BILATERAL MITTENS FOR PT SAFETY
--- NOTE | 2024-10-15 09:15 | HMCIMG ---
CHEST 1VW HISTORY: Congestion COMPARISON: 10/12/2024 FINDINGS: A frontal projection of the chest was obtained. Mild bilateral pulmonary infiltrates are seen may be related to mild pulmonary vascular congestion with possible superimposed pneumonitis. The heart is borderline enlarged. Degenerative changes are seen. Aortic calcifications are seen. IMPRESSION: 1. Mild bilateral pulmonary infiltrates are seen may be related to mild pulmonary vascular congestion with possible superimposed pneumonitis.
[2024-10-15] MEDS ORDERED: HALOPERIDOL 1 MG TABLET PO PRN (11:00)
[2024-10-15] MEDS ORDERED: ARTIFICAL TEARS SOL 15 ML OU PRN (11:00)
[2024-10-15] MEDS ORDERED: ondanSETRON 4MG TABLET PO PRN (11:00)
--- NOTE | 2024-10-15 12:00 | PN ---
INFECTIOUS DISEASE PROGRESS NOTE Date of Service: Oct 15, 2024 SUBJECTIVE: This is a 74-year-old male patient who was seen and examined at bedside in room 203. Patient is lethargic and not following commands. NG tube in place to administer medications. Per report the repeat bedside swallow evaluation was canceled yesterday. Patient has been referred to social services manager and pending a hospice services evaluation on Thursday. Patient's family member visiting at bedside wants to continue the IV antibiotics until a decision for hospice is made on Thursday. We will continue to follow patient's care. PHYSICAL EXAM EYES: Anicteric. Pupils equal and reactive. HENT: No oral thrush seen, moist Oral mucosa. NG tube NECK: Supple, no JVD or thyromegaly. LUNGS: Good air entry. No rales, no rhonchi. CARDIOVASCULAR: S1, S2 regular. No murmur heard. ABDOMEN: Soft, non tender, bowel sounds present, no organomegaly CENTRAL NERVOUS SYSTEM: Lethargic. Unable to answer questions. SKIN: No rashes, no swelling. LYMPHATICS: No peripheral lymphadenopathy. MUSCULOSKELETAL: No joint swelling, erythema or tenderness. EXTREMITIES: No cyanosis or clubbing. Weakness. BACK: No deformity, no pressure ulcer. GENITOURINARY: No dysuria or hematuria. Vital Sign (Last 12 Hours) 10/15/24 10/15/24 10/15/24 03:41 07:46 11:52 Temp 99.7 98.2 97.9 Pulse 63 61 69 Resp 22 18 18 B/P (MAP) 131/47 155/71 148/74 Pulse Ox 95 92 92 O2 Delivery BIPAP Room Air Room Air Intake & Output (last 24hrs) 10/14/24 10/14/24 10/15/24 15:00 23:00 07:00 Intake Total 0 ml 0 ml Output Total 300 ml Balance 0 ml 0 ml -300 ml LABS: Laboratory: Test 10/14/24 04:01 Range/Units White Blood Count 11.7 H 4.8-10.8 K/uL Red Blood Count 4.44 L 4.50-6.20 MIL/uL Hemoglobin 13.9 L 14.0-18.0 g/dL Hematocrit 40.4 L 42-54 % Mean Corpuscular Volume 91.0 79-99 fL Mean Corpuscular Hemoglobin 31.3 27.0-33.0 pg Mean Corpuscular Hemoglobin Concent 34.4 32.0-36.0 g/dL Red Cell Distribution Width 12.8 11.0-15.5 % Platelet Count 193 130-400 K/uL Mean Platelet Volume 9.8 7.5-10.5 fL Immature Granulocyte % (Auto) 0.5 0-1 % Neutrophils (%) (Auto) 79.1 H 40.0-77.0 % Lymphocytes (%) (Auto) 8.4 L 21.0-51.0 % Monocytes (%) (Auto) 11.3 3.0-13.0 % Eosinophils (%) (Auto) 0.4 0.0-8.0 % Basophils (%) (Auto) 0.3 0.0-5.0 % Neutrophils # (Auto) 9.3 H 1.8-7.7 K/uL Lymphocytes # (Auto) 1.0 1.0-4.8 K/uL Monocytes # (Auto) 1.3 H 0.1-1.0 K/uL Eosinophils # (Auto) 0.05 0.00-0.70 K/uL Basophils # (Auto) 0.04 0.00-0.20 K/uL Absolute Immature Granulocyte (auto 0.06 0-1 K/uL Nucleated Red Blood Cells 0.0 0.0-0.19 % Sodium Level 136 136-145 mmol/L Potassium Level 3.5 3.5-5.1 mmol/L Chloride Level 104 101-111 mmol/L Carbon Dioxide Level 28 21-32 mmol/L Blood Urea Nitrogen 17 7-18 mg/dL Creatinine 0.6 0.5-1.3 mg/dL Glomerular Filtration Rate Calc 101 >90 mL/min Random Glucose 110 H 70-105 mg/dL Total Calcium 7.9 L 8.5-10.1 mg/dL Magnesium Level 1.90 1.80-2.40 mg/dL Total Bilirubin 1.3 H 0.2-1.0 mg/dL Aspartate Amino Transf (AST/SGOT) 75 H 10-37 U/L Alanine Aminotransferase (ALT/SGPT) 77 12-78 U/L Alkaline Phosphatase 55 50-136 U/L Total Creatine Kinase 529 #*H 21-232 U/L Total Protein 6.4 6.0-8.3 g/dL Albumin 2.5 L 3.5-5.0 g/dL ASSESSMENT: E Coli Bacteremia. Urinary tract infection with E coli. Leukocytosis. Rhabdomyolysis. Status post mechanical fall. Dementia. Debility. PLAN: Continue on ceftriaxone IV. Continue GI prophylaxis. Fall precaution measures. Continue Aspiration precautions. We will monitor electrolytes. Cane Feeder has been consulted for hospice services evaluation for Thursday. This case was reviewed and discussed with my supervising physician and the above assessment and plan was formulated and agreed upon. ATTESTATION BY PHYSICIAN I have seen and examined the patient. I reviewed the documentation, medical decision making, and treatment plan as noted by the mid-level provider above. I agree with the findings and plan of care. BRYON SHELTON MD, [facility] Oct 15, 2024 11:59
--- NOTE | 2024-10-15 12:17 | PN ---
[facility] PROGRESS NOTE Date of Service: Oct 15, 2024 Time of Service: 12:11 SUBJECTIVE: [ ] This is a 74-year-old male that was three 2024 presents in ER with altered radiation admit to status and ground level fall and found to have severe sepsis and UTI. Tele neuro was done suspecting encephalopathy due to infection over acute ischemic stroke patient has a history of Lewy body progression. Patient also appear hypoxia was placed on non-rebreather on admission he is currently on nasal cannula4 L. Family apparently do not Wanna have aggressive measures hospice was discussed with patient family per developer analyst's. Patient was seen in ED patient apparently had a fall in ED unwitnessed he reports of right elbow pain in reports he bumps his head we will get a CT head and x-ray of right elbow. Patient has underlying Lewy dementia. He is high- risk for falls therefore one-to-one sitter we will be applied to his care. No family at bedside. Patient was able to answer all my questions. And follow commands 10/13/24 patient is seen patient is awake family at bedside son reports this is his norm mentation there are requesting SNF: We will wait for ID recommendations repeat cultures so far negative blood cultures on admission E coli. We will continue with broad-spectrum antibiotics. 10/14/2024. Patient was seen and examined patient appears fragile and weak. Patient was evaluated by speech and given to patient signs of aspiration. Cough during administration of whole pills. Bedside swallow eval positive for aspiration. Recommend mechanical soft chopped solids with nectar thick liquids. sheet metal worker spoke with family in regards DNR waiting for family to decide. 1300 the patient family proceed with DNR STATUS. social services specialist for hospice 10/15/24 patient appears fragile and weak. Patient with NG tube unable to administer medication patient has reflux. Patient continues to gargle head of the bed at 45 at all times. Patient is DNR status [facility] All questions addressed. REVIEW OF SYSTEMS ROS is limited since patient is unable to participate in conversation PHYSICAL EXAM GENERAL APPEARANCE: Patient appears lethargic at bedside. Moans when asked about his name NEUROLOGICAL: Patient does not follow commands for neurological exam. Patient has tremors in the upper extremity HEENT: Face is symmetric. Pupils are equal and reactive. Extraocular movements are intact. NECK: Supple. No JVD. No thyromegaly. No submental, submandibular, pre- /postauricular, occipital or supraclavicular lymphadenopathy. CHEST: Normal chest expansion. No Telemetry. LUNGS: Absence of any rales, rhonchi or any wheezing. CARDIOVASCULAR: Regular. S1 and S2 normal. No appreciable rubs, murmurs or gallops. ABDOMEN: Soft, nontender, and nondistended. There is no rebound, voluntary guarding, or rigidity. : Deferred. No Friedman. EXTREMITIES: Non-edematous and not cyanotic. No clubbing. Good capillary refill. SKIN: No skin breakdown. Vital Signs (last 8hr) Date Time Temp Pulse Resp B/P (MAP) Pulse Ox O2 Delivery O2 Flow Rate FiO2 10/15/24 11:52 97.9 69 18 148/74 92 Room Air 10/15/24 07:46 98.2 61 18 155/71 92 Room Air LABS: Laboratory: Test 10/14/24 04:01 Range/Units White Blood Count 11.7 H 4.8-10.8 K/uL Red Blood Count 4.44 L 4.50-6.20 MIL/uL Hemoglobin 13.9 L 14.0-18.0 g/dL Hematocrit 40.4 L 42-54 % Mean Corpuscular Volume 91.0 79-99 fL Mean Corpuscular Hemoglobin 31.3 27.0-33.0 pg Mean Corpuscular Hemoglobin Concent 34.4 32.0-36.0 g/dL Red Cell Distribution Width 12.8 11.0-15.5 % Platelet Count 193 130-400 K/uL Mean Platelet Volume 9.8 7.5-10.5 fL Immature Granulocyte % (Auto) 0.5 0-1 % Neutrophils (%) (Auto) 79.1 H 40.0-77.0 % Lymphocytes (%) (Auto) 8.4 L 21.0-51.0 % Monocytes (%) (Auto) 11.3 3.0-13.0 % Eosinophils (%) (Auto) 0.4 0.0-8.0 % Basophils (%) (Auto) 0.3 0.0-5.0 % Neutrophils # (Auto) 9.3 H 1.8-7.7 K/uL Lymphocytes # (Auto) 1.0 1.0-4.8 K/uL Monocytes # (Auto) 1.3 H 0.1-1.0 K/uL Eosinophils # (Auto) 0.05 0.00-0.70 K/uL Basophils # (Auto) 0.04 0.00-0.20 K/uL Absolute Immature Granulocyte (auto 0.06 0-1 K/uL Nucleated Red Blood Cells 0.0 0.0-0.19 % Sodium Level 136 136-145 mmol/L Potassium Level 3.5 3.5-5.1 mmol/L Chloride Level 104 101-111 mmol/L Carbon Dioxide Level 28 21-32 mmol/L Blood Urea Nitrogen 17 7-18 mg/dL Creatinine 0.6 0.5-1.3 mg/dL Glomerular Filtration Rate Calc 101 >90 mL/min Random Glucose 110 H 70-105 mg/dL Total Calcium 7.9 L 8.5-10.1 mg/dL Magnesium Level 1.90 1.80-2.40 mg/dL Total Bilirubin 1.3 H 0.2-1.0 mg/dL Aspartate Amino Transf (AST/SGOT) 75 H 10-37 U/L Alanine Aminotransferase (ALT/SGPT) 77 12-78 U/L Alkaline Phosphatase 55 50-136 U/L Total Creatine Kinase 529 #*H 21-232 U/L Total Protein 6.4 6.0-8.3 g/dL Albumin 2.5 L 3.5-5.0 g/dL Current Medications Medications (Trade) Dose Ordered Sig/Edgar Route PRN Reason Start Time Stop Time Status Last Admin Dose Admin Acetaminophen (TYLenol 500MG TAB) 500 mg Q6H PRN PO MILD PAIN (1-3) 10/11/24 12:30 11/10/24 12:29 10/15/24 10:40 500 MG Acetaminophen (TYLenol 650MG SUPPOSITORY) 650 mg Q6H PRN RC MILD PAIN (1-3) 10/14/24 23:30 11/13/24 23:29 10/14/24 23:15 650 MG Albuterol Sulfate (Proventil 0.083% 2.5mg/3ml) 2.5MG Q6H PRN IH SHORTNESS OF BREATH 10/11/24 12:30 11/10/24 12:29 10/14/24 19:06 2.5 MG Artificial Tears (Artificial Tears) 2 DROP OU PRN DRY EYES Q1H PRN OU DRY EYES 10/15/24 11:00 11/14/24 10:59 Brimonidine Tartrate (Alphagan P) 1 DROP BID OP 10/12/24 21:00 11/11/24 20:59 10/15/24 10:41 1 ML Carbidopa/Levodopa (Sinemet 25-100 Tab) 1 each DAILY PO 10/13/24 09:00 10/15/24 10:52 DC 10/15/24 10:14 1 EACH Ceftriaxone Sodium (Rocephin 2gm Inj) 2 gm Q24H IVPB 10/14/24 12:30 10/24/24 12:29 10/14/24 12:27 2 GM Famotidine (Pepcid 20mg Vial) 20 mg BID IV 10/11/24 21:00 11/10/24 20:59 10/15/24 10:14 20 MG Haloperidol (Haldol) 1 mg Q1H PRN PO DIRECTED 10/15/24 11:00 11/14/24 10:59 Home Med (Home Medication) (Timolol Maleate 1 DROP) BID OP 10/12/24 21:00 11/11/24 20:59 10/14/24 19:58 1 DROP Home Med (Home Medication) Entacapone 200 MG TID PO 10/12/24 14:00 10/15/24 10:52 DC 10/15/24 10:41 1 TAB Home Med (Home Medication) MELATONIN 3MG DAILY PO 10/13/24 09:00 10/13/24 11:17 DC Home Med (Home Medication) MELATONIN 3MG HS PO 10/13/24 21:00 10/15/24 10:52 DC 10/14/24 19:58 1 EACH Home Med (Home Medication) Rivastigmine 4.6MG/24H PATCH DAILY TD 10/13/24 09:00 11/12/24 08:59 10/13/24 09:00 1 EACH Home Med (Home Medication) TAKE ONE HALF TABLET... HS PO 10/13/24 21:00 10/15/24 10:52 DC 10/14/24 19:59 0.5 EACH Latanoprost (Xalatan) 1 DROP HS OP 10/12/24 21:00 11/11/24 20:59 10/14/24 19:58 1 DROP Lorazepam (AtiVAN) 1 mg Q4H PRN IVP DIRECTED 10/15/24 11:00 10/22/24 10:59 Magnesium Sulfate 50 ml @ 0 mls/hr PROTOCOL PRN IV low mag level 10/12/24 09:30 11/11/24 09:29 Melatonin (Melatonin) 5 mg HS PO 10/13/24 21:00 10/13/24 13:03 DC Ondansetron HCl (zoFRAN 4MG TABLET) 4 mg Q8H PRN PO NAUSEA/VOMITING 10/15/24 11:00 11/14/24 10:59 Piperacillin Sod/ Tazobactam Sod (Zosyn 3.375gm+NS 50ml) 3.375 gm Q8H IVPB 10/11/24 13:00 10/14/24 12:04 DC 10/14/24 05:11 3.375 GM Piperacillin Sod/ Tazobactam Sod (Zosyn 3.375gm+NS 50ml) 3.375 gm ZOSY8 IV 10/14/24 21:00 10/14/24 16:08 DC Potassium Chloride 100 ml @ 100 mls/hr AD PRN IV POTASSIUM PROTOCOL 10/12/24 09:30 11/11/24 09:29 Potassium Chloride (K-Dur/Klor-Con 20meq) 20 meq AD PRN PO POTASSIUM PROTOCOL 10/12/24 09:30 11/11/24 09:29 Potassium Chloride (KCl 10% Elixir 20meq/15ml) 20 meq AD PRN PO POTASSIUM PROTOCOL 10/12/24 09:30 11/11/24 09:29 10/14/24 09:23 20 MEQ Scopolamine HBr (Transderm-Scop) 1 patch Q72H TD 10/15/24 11:00 11/14/24 10:59 Simvastatin (zoCOR) 40 mg HS PO 10/12/24 21:00 10/13/24 13:11 DC Sodium Chloride 1,000 ml @ 80 mls/hr [id number] IV 10/11/24 12:30 11/10/24 12:29 10/15/24 11:48 80 MLS/HR Sodium Chloride (NS 50ml) 50 ml AD IV 10/11/24 13:00 10/11/24 12:35 DC Tamsulosin HCl (FloMAX) 0.4 mg DAILY PO 10/13/24 09:00 10/15/24 10:52 DC 10/15/24 10:14 0.4 MG DIAGNOSTICS / RADIOLOGY: [ ] ASSESSMENT: Bacteremia gram negative E coli POA Metabolic encephalopathy POA Suspecting sepsis secondary to UTI POA Orophargeal dysphasia POA: Acute respiratory failure with hypoxia requiring oxygen supplemental non- rebreather POA improved Ground Fall unwitnessed POA acute Rhabdomyolysis POA Possible URI with associated sputum production vs Aspiration Pneumonia UTI Gram negative e coli POA chronic problems: Lewy body dementia Hyperlipidemia Debility Diabetes mellitus type 2 PLAN: Admit: PCCU condition: Guarded Status: DNR status IVF: NS at 80 ML an hour We will continue to monitor CK levels 529 Consultants tele neuro, developer analyst's and Infectious disease Antibiotics: Zosyn 3.375 g every 8 hours WBC improving blood with Ecoli and urine. resp cultures negative Oxygen supplement to keep O2 sats above 92%. Labs cbc, cmp, mag+ Inflammatory markers every other day. We will monitor trends Replace electrolytes as needed as per protocol to keep potassium above 4.0 magnesium 2.0. Home medications reviewed and reconciled. Flomax 0.4 mg daily, carbidopa and levodopa, rivastigmine and simvastatin speech positive for aspiration. NPO status: NGT for mediations and bolus feeding which is currently placed on HOLD given to severe reflux. fall precaution Decubitus precautions reposition every2 hours aggressive offloading Pain management: Tylenol 650 as needed Supportive measures: DVT ppx, GI ppx all questions answered case management: SNF: [facility]; social services specialist: hospice dnr status Supervising MD: Dr. Vince Isabel c/d This document was generated in part using voice recognition software, occasional wrong word or sound alike substitutions may have occurred due to the inherent limitations of voice recognition software. Read the chart carefully and recognize using context, where the substitutions have occurred. Although every effort was made to edit the content, stucco applicator and typing errors may occur ATTESTATION BY PHYSICIAN I have seen and examined the patient. I reviewed the documentation, medical decision making, and treatment plan as noted by the mid-level provider above. I agree with the findings and plan of care. Chalo Clarke MD, ELIZABETH NP Oct 15, 2024 12:17 CHALO CLARKE MD Oct 16, 2024 17:42
[2024-10-15] MEDS: SCOPOLAMINE HYDROBROMIDE 1 EACH ADH..PATCH TD SCH (13:25)
--- NOTE | 2024-10-15 14:28 | HMCIMG ---
ABD 1VW HISTORY: NG tube placement COMPARISON: None FINDINGS: A frontal projection of the abdomen was obtained. Small bowel dilatation is seen. Fecal material is seen in the colon. Degenerative changes of the thoracolumbar spine are noted. IMPRESSION: 1. Small bowel dilatation.
--- NOTE | 2024-10-15 16:27 | PN ---
[facility] PROGRESS NOTE Date Patient Seen: Oct 15, 2024 Time of Visit: 16:23 Supervising Physician: YONATAN MARIA Consulting Physician: Dr Tovar Outpatient Specialists: [ ] Inpatient Consults: [facility] PROBLEM LIST: Acute hypoxic respiratory failure POA Recurrent aspiration episodes with suspected superimposed PNA Oropharyngeal Dysphagia secondary to Advanced Dementia , Ng tube in place Episodic apnea, POA, secondary to above Severe sepsis, POA Urinary tract infection, POA Lewy body dementia, diagnosed 2017 Alteration in mental status Feeding difficulty in adult, POA INTERVAL HISTORY: Patient was seen and examined at bedside, he was on NRM overnight given an episo de of hypoxia which is suspected due to aspiration given his advanced dementia. at bedside. Has mittens in place and sitter given his agitation No further apneic episodes reported. Arterial blood gases reveal pH of 7.4, PO2 of 139 on non-rebreather at 10 L. We will repeat these today. 10/13/2024: At the time of my evaluation, the patient was lying in bed. Family members are present at the bedside. He is awake and alert, but oriented to self. Per the staff nurse, he has intermittently agitated and attempting to exit the bed. On the monitor, the patient is on room air and is hemodynamically stable. Laboratory data today was notable for a potassium of 3.4, improving liver and total CK parameters. Blood and urine cultures positive for E coli p ansensitive. No new imaging obtained for review today. Currently, the patient remains on antibiotic therapy with IV Zosyn and is so far tolerating well. Per the staff nurse, the patient was coughing with his pills this a.m. these were later crushed and given with applesauce and tolerated well. No other complaint. - Patient was seen and evaluated by me at bedside, he is agitated, encephalopathic, not following commands . Ng tube has been placed as he suffered another aspiration episode this morning . Patient did of Note have a speech evaluation yesterday and passed with mechanical soft and nectar thick , however , as stated above patient had aspiratoin episode Sons are at bedside, we discussed patients poor overall prognosis and high risk of recurrent aspiration. At this time they would like to continue a NG tube in place and reassess him once his encephalopathy improves. Continues on PRN oxygen supplementation and we highly suggest he kees his HOB elevated at all times. 10/15/24 PATIENT WAS SEEN AND EXAMINED TODAY BY ME AT BEDSIDE, AT THIS TIME THE FAMILY STATES HE WOULD LIKE TO PROCEED WITH HOSPICE CARE. HE CONTINUES WITH EXCESSIVE SECRETIONS THAT REQUIRED DEEP SUCTIONING. INTERMITTENT ATIVAN HAS BEEN REQUIRED. HE WAS ON O2 SUPPLEMENTATION. PENDING HOSPICE CONSULTATION HOWEVER COMFORT MEASURES ARE GOING TO BE INITIATED AT THIS TIME. REVIEW OF SYSTEMS: Unable to obtain due to alteration in mental status PHYSICAL EXAM: GENERAL: Encephalopathic,agitated HEENT: EOMI, with dry mucous membranes, ng tube to right nare NECK: Supple, no JVD, trachea midline LUNGS: Coarse bilateral lung sounds HEART: Sinus Dennis on the monitor Normal S1 and S2, without murmurs ABD: Abdomen soft, nontender. Bowel sounds present EXT: No clubbing cyanosis or edema NEURO: Encephalopathic, not following commands Vital Signs (last 8hr) Date Time Temp Pulse Resp B/P (MAP) Pulse Ox O2 Delivery O2 Flow Rate FiO2 10/15/24 16:11 98.1 122 18 166/57 92 Room Air 10/15/24 11:52 97.9 69 18 148/74 92 Room Air LABS: Hematology Labs: Test 10/14/24 04:01 Range/Units White Blood Count 11.7 H 4.8-10.8 K/uL Red Blood Count 4.44 L 4.50-6.20 MIL/uL Hemoglobin 13.9 L 14.0-18.0 g/dL Hematocrit 40.4 L 42-54 % Mean Corpuscular Volume 91.0 79-99 fL Mean Corpuscular Hemoglobin 31.3 27.0-33.0 pg Mean Corpuscular Hemoglobin Concent 34.4 32.0-36.0 g/dL Red Cell Distribution Width 12.8 11.0-15.5 % Platelet Count 193 130-400 K/uL Mean Platelet Volume 9.8 7.5-10.5 fL Immature Granulocyte % (Auto) 0.5 0-1 % Neutrophils (%) (Auto) 79.1 H 40.0-77.0 % Lymphocytes (%) (Auto) 8.4 L 21.0-51.0 % Monocytes (%) (Auto) 11.3 3.0-13.0 % Eosinophils (%) (Auto) 0.4 0.0-8.0 % Basophils (%) (Auto) 0.3 0.0-5.0 % Neutrophils # (Auto) 9.3 H 1.8-7.7 K/uL Lymphocytes # (Auto) 1.0 1.0-4.8 K/uL Monocytes # (Auto) 1.3 H 0.1-1.0 K/uL Eosinophils # (Auto) 0.05 0.00-0.70 K/uL Basophils # (Auto) 0.04 0.00-0.20 K/uL Absolute Immature Granulocyte (auto 0.06 0-1 K/uL Nucleated Red Blood Cells 0.0 0.0-0.19 % Chemistry Labs: Test 10/14/24 04:01 Range/Units Sodium Level 136 136-145 mmol/L Potassium Level 3.5 3.5-5.1 mmol/L Chloride Level 104 101-111 mmol/L Carbon Dioxide Level 28 21-32 mmol/L Blood Urea Nitrogen 17 7-18 mg/dL Creatinine 0.6 0.5-1.3 mg/dL Glomerular Filtration Rate Calc 101 >90 mL/min Random Glucose 110 H 70-105 mg/dL Total Calcium 7.9 L 8.5-10.1 mg/dL Magnesium Level 1.90 1.80-2.40 mg/dL Total Bilirubin 1.3 H 0.2-1.0 mg/dL Aspartate Amino Transf (AST/SGOT) 75 H 10-37 U/L Alanine Aminotransferase (ALT/SGPT) 77 12-78 U/L Alkaline Phosphatase 55 50-136 U/L Total Creatine Kinase 529 #*H 21-232 U/L Total Protein 6.4 6.0-8.3 g/dL Albumin 2.5 L 3.5-5.0 g/dL DIAGNOSTICS / RADIOLOGY RESULTS: [ ] PLAN COMFORT MEASURES INITIATED. HOSPICE CONSULT WE APPRECIATE THIS OPPORTUNITY TO BE INVOLVED IN THIS CONSULTATION, ORDERS HAVE BEEN PLACED, AT THIS TIME PULMONARY SERVICES , WE WILL WE SIGNED OFF PLEASE RECONSULT IF NEEDED. NEURO: Minimize central acting medications as possible. Maintain fall precautions, adequate lighting during the day PULMONARY: Supplemental 02 as needed. Maintain aspiration precautions at all times CARDIOVASCULAR: Follow hemodynamics. Vital signs per facility protocol GI & NUTRITION: Continue with nutritional support. Continue stool softeners and laxatives as needed. KIDNEYS & ELECTROLYTES: Strict monitoring of intake, output and overall fluid balance. Avoid nephrotoxic medications to the extent possible. Medications to be dosed according to renal function. Monitor electrolytes and replace as needed ENDOCRINE: Maintain blood glucose between 100-180 at all times. Hypoglycemia protocol in place INFECTIOUS DISEASE: Trend temperature, WBC and procalcitonin level Follow cultures, deescalate antibiotics as soon as possible. Panculture if new onset fever ONCOLOGY/HEMATOLOGY/COAGULATION: Monitor for s/s of bleeding Monitor hemoglobin, coagulation studies as needed SKIN: Pressure ulcer prevention per facility protocol Specialty mattress ORTHO/REHAB: Continue PT/OT Prophylaxis: Continue GI and DVT prophylaxis Code Status: Full Resuscitation Disposition: TBD Other: Total patient care time exceeds 35 minutes excluding all procedures. WILLIAM STACK Oct 15, 2024 16:27
[2024-10-15] MEDS ORDERED: PHARMACY COMMUNICATION MISC SCH (16:30)
--- NOTE | 2024-10-15 16:30 | NUR ---
DCP: [facility] vs HOSPICE On 10/13/24, order for SNF. ARELY signed by son, Jaun Wisdom for [facility]. ARELY placed in chart. Referral sent. PASSR completed by Shannan ELLIS, and in chart. On 10/14/24 MD order for HOSPICE EVALUATION. ARELY signed by son, Gonzalez Wisdom, for "any in network". ARELY placed in chart. Referral sent by Shannan ELLIS, to [facility]. Martha Bailey, with [facility] met with family and paperwork was completed. As per Martha, she spoke with family regarding comfort homes in the area and/or possible SNF placement. She informed SW that family had not decided yet on where patient would be discharged to. Martha stated that son was considering [facility] in [place] but other family members did not patient too far from their home. She stated that family was not able to care for patient at home. Out of Hospital Do Not Resuscitate was also completed. Copy in chart. Today, 10/15/24, FLORENCIO spoke with patient's son, Gonzalez Wisdom. He informed SW that family is still thinking about discharge disposition for patient. He states he will be coming to visit patient later this evening and will speak with nursing. FLORENCIO notified patient's nurse, Vane, about above information. Mary ELLIS, updated on above information as well. RHONDA/GLORY will continue to follow up
[2024-10-15] MEDS: metoCLOPRAmide 10 MG/2 ML VIAL IVP SCH (18:07)
--- NOTE | 2024-10-15 21:09 | HMCIMG ---
ABD 1VW HISTORY: NG TUBE TECHNIQUE: ABD 1VW. COMPARISON: 10/15/2024 FINDINGS AND IMPRESSION: Nonspecific bowel gas pattern is seen. Prominent fecal material in the colon suggesting constipation. Enteric tube terminates in the stomach. No acute osseous injury is identified.
[2024-10-16] VITALS (12 sets, daily range): BP systolic 131–159; BP diastolic 68–108; PULSE 56–94; RESP 18–22; TEMP 98.3–102.6; O2SAT 90–97
[2024-10-16 05:00] LABS: BASOPHILS # (AUTO) 0.02 K/uL (0.00-0.20); BASOPHILS % (AUTO) 0.2 % (0.0-5.0); EOSINOPHILS # (AUTO) 0.01 K/uL (0.00-0.70); EOSINOPHILS % (AUTO) 0.1 % (0.0-8.0); HEMATOCRIT 40.4 % (42-54); IMMATURE GRANULOCYTE ABSOLUTE 0.08 K/uL (0-1); LYMPHOCYTES % (AUTO) 11.1 % (21.0-51.0); MEAN CORPUSCULAR HEMOGLOBIN 31.7 pg (27.0-33.0); MEAN CORPUSCULAR HGB CONC 34.7 g/dL (32.0-36.0); MEAN CORPUSCULAR VOLUME 91.4 fL (79-99); MONOCYTES % (AUTO) 10.6 % (3.0-13.0); NEUTROPHILS # (AUTO) 7.2 K/uL (1.8-7.7); NEUTROPHILS % (AUTO) 77.1 % (40.0-77.0); PLATELET COUNT (AUTO) 219 K/uL (130-400); RED BLOOD CELL COUNT(AUTO) 4.42 MIL/uL (4.50-6.20); RED CELL DISTRIBUTION WIDTH 13.1 % (11.0-15.5); WHITE BLOOD COUNT (AUTO) 9.3 K/uL (4.8-10.8)
[2024-10-16 06:22] LABS: ALBUMIN 2.5 g/dL (3.5-5.0); BILIRUBIN,TOTAL 1.8 mg/dL (0.2-1.0); CREATININE 0.7 mg/dL (0.5-1.3); MAGNESIUM 1.8 mg/dL (1.80-2.40); POTASSIUM 3.4 mmol/L (3.5-5.1); TOTAL PROTEIN, SERUM 6.6 g/dL (6.0-8.3)
--- NOTE | 2024-10-16 08:48 | PN ---
[facility] PROGRESS NOTE Date of Service: Oct 16, 2024 Time of Service: 08:46 SUBJECTIVE: [ ] This is a 74-year-old male that was three 2024 presents in ER with altered radiation admit to status and ground level fall and found to have severe sepsis and UTI. Tele neuro was done suspecting encephalopathy due to infection over acute ischemic stroke patient has a history of Lewy body progression. Patient also appear hypoxia was placed on non-rebreather on admission he is currently on nasal cannula4 L. Family apparently do not Wanna have aggressive measures hospice was discussed with patient family per canoe inspector's. Patient was seen in ED patient apparently had a fall in ED unwitnessed he reports of right elbow pain in reports he bumps his head we will get a CT head and x-ray of right elbow. Patient has underlying Lewy dementia. He is high- risk for falls therefore one-to-one sitter we will be applied to his care. No family at bedside. Patient was able to answer all my questions. And follow commands 10/13/24 patient is seen patient is awake family at bedside son reports this is his norm mentation there are requesting SNF: We will wait for ID recommendations repeat cultures so far negative blood cultures on admission E coli. We will continue with broad-spectrum antibiotics. 10/14/2024. Patient was seen and examined patient appears fragile and weak. Patient was evaluated by speech and given to patient signs of aspiration. Cough during administration of whole pills. Bedside swallow eval positive for aspiration. Recommend mechanical soft chopped solids with nectar thick liquids. grommet worker spoke with family in regards DNR waiting for family to decide. 1300 the patient family proceed with DNR STATUS. social media marketing analyst for hospice 10/15/24 patient appears fragile and weak. Patient with NG tube unable to administer medication patient has reflux. Patient continues to gargle head of the bed at 45 at all times. Patient is DNR status [facility] All questions addressed. 10/16/24 [facility] on Thursday. Patient is DNR status. Primary nurse reports patient requires oral suctioning. Head of the bed at 45 at all times. No family at bedside REVIEW OF SYSTEMS ROS is limited since patient is unable to participate in conversation PHYSICAL EXAM GENERAL APPEARANCE: Patient appears lethargic at bedside. Moans when asked about his name NEUROLOGICAL: Patient does not follow commands for neurological exam. Patient has tremors in the upper extremity HEENT: Face is symmetric. Pupils are equal and reactive. Extraocular movements are intact. NECK: Supple. No JVD. No thyromegaly. No submental, submandibular, pre- /postauricular, occipital or supraclavicular lymphadenopathy. CHEST: Normal chest expansion. No Telemetry. LUNGS: Absence of any rales, rhonchi or any wheezing. CARDIOVASCULAR: Regular. S1 and S2 normal. No appreciable rubs, murmurs or g allops. ABDOMEN: Soft, nontender, and nondistended. There is no rebound, voluntary gua rding, or rigidity. : Deferred. No Friedman. EXTREMITIES: Non-edematous and not cyanotic. No clubbing. Good capillary refill. SKIN: No skin breakdown. Vital Signs (last 8hr) Date Time Temp Pulse Resp B/P (MAP) Pulse Ox O2 Delivery O2 Flow Rate FiO2 10/16/24 07:52 100.8 60 18 147/68 90 Room Air 10/16/24 07:28 56 18 10/16/24 07:25 56 18 N/A Room Air 21 10/16/24 03:06 99.5 56 22 145/77 97 Room Air LABS: Laboratory: Test 10/16/24 06:01 10/16/24 03:52 Range/Units Sodium Level 137 136-145 mmol/L Potassium Level 3.4 L 3.5-5.1 mmol/L Chloride Level 104 101-111 mmol/L Carbon Dioxide Level 27 21-32 mmol/L Blood Urea Nitrogen 17 7-18 mg/dL Creatinine 0.7 0.5-1.3 mg/dL Glomerular Filtration Rate Calc 96 >90 mL/min Random Glucose 88 70-105 mg/dL Total Calcium 8.1 L 8.5-10.1 mg/dL Magnesium Level 1.80 1.80-2.40 mg/dL Total Bilirubin 1.8 H 0.2-1.0 mg/dL Aspartate Amino Transf (AST/SGOT) 52 H 10-37 U/L Alanine Aminotransferase (ALT/SGPT) 66 12-78 U/L Alkaline Phosphatase 56 50-136 U/L Total Protein 6.6 6.0-8.3 g/dL Albumin 2.5 L 3.5-5.0 g/dL White Blood Count 9.3 4.8-10.8 K/uL Red Blood Count 4.42 L 4.50-6.20 MIL/uL Hemoglobin 14.0 14.0-18.0 g/dL Hematocrit 40.4 L 42-54 % Mean Corpuscular Volume 91.4 79-99 fL Mean Corpuscular Hemoglobin 31.7 27.0-33.0 pg Mean Corpuscular Hemoglobin Concent 34.7 32.0-36.0 g/dL Red Cell Distribution Width 13.1 11.0-15.5 % Platelet Count 219 130-400 K/uL Mean Platelet Volume 9.9 7.5-10.5 fL Immature Granulocyte % (Auto) 0.9 0-1 % Neutrophils (%) (Auto) 77.1 H 40.0-77.0 % Lymphocytes (%) (Auto) 11.1 L 21.0-51.0 % Monocytes (%) (Auto) 10.6 3.0-13.0 % Eosinophils (%) (Auto) 0.1 0.0-8.0 % Basophils (%) (Auto) 0.2 0.0-5.0 % Neutrophils # (Auto) 7.2 1.8-7.7 K/uL Lymphocytes # (Auto) 1.0 1.0-4.8 K/uL Monocytes # (Auto) 1.0 0.1-1.0 K/uL Eosinophils # (Auto) 0.01 0.00-0.70 K/uL Basophils # (Auto) 0.02 0.00-0.20 K/uL Absolute Immature Granulocyte (auto 0.08 0-1 K/uL Nucleated Red Blood Cells 0.0 0.0-0.19 % Current Medications Medications (Trade) Dose Ordered Sig/Edgar Route PRN Reason Start Time Stop Time Status Last Admin Dose Admin Acetaminophen (TYLenol 500MG TAB) 500 mg Q6H PRN PO MILD PAIN (1-3) 10/11/24 12:30 11/10/24 12:29 10/15/24 10:40 500 MG Acetaminophen (TYLenol 650MG SUPPOSITORY) 650 mg Q6H PRN RC MILD PAIN (1-3) 10/14/24 23:30 11/13/24 23:29 10/14/24 23:15 650 MG Albuterol Sulfate (Proventil 0.083% 2.5mg/3ml) 2.5MG Q6H PRN IH SHORTNESS OF BREATH 10/11/24 12:30 11/10/24 12:29 10/16/24 07:27 2.5 MG Artificial Tears (Artificial Tears) 2 DROP OU PRN DRY EYES Q1H PRN OU DRY EYES 10/15/24 11:00 11/14/24 10:59 Brimonidine Tartrate (Alphagan P) 1 DROP BID OP 10/12/24 21:00 11/11/24 20:59 10/15/24 21:43 1 ML Carbidopa/Levodopa (Sinemet 25-100 Tab) 1 each DAILY PO 10/13/24 09:00 10/15/24 10:52 DC 10/15/24 10:14 1 EACH Ceftriaxone Sodium (Rocephin 2gm Inj) 2 gm Q24H IVPB 10/14/24 12:30 10/24/24 12:29 10/15/24 13:24 2 GM Famotidine (Pepcid 20mg Vial) 20 mg BID IV 10/11/24 21:00 11/10/24 20:59 10/15/24 21:42 20 MG Haloperidol (Haldol) 1 mg Q1H PRN PO DIRECTED 10/15/24 11:00 11/14/24 10:59 Home Med (Home Medication) (Timolol Maleate 1 DROP) BID OP 10/12/24 21:00 11/11/24 20:59 10/14/24 19:58 1 DROP Home Med (Home Medication) Entacapone 200 MG TID PO 10/12/24 14:00 10/15/24 10:52 DC 10/15/24 10:41 1 TAB Home Med (Home Medication) MELATONIN 3MG DAILY PO 10/13/24 09:00 10/13/24 11:17 DC Home Med (Home Medication) MELATONIN 3MG HS PO 10/13/24 21:00 10/15/24 10:52 DC 10/14/24 19:58 1 EACH Home Med (Home Medication) Rivastigmine 4.6MG/24H PATCH DAILY TD 10/13/24 09:00 11/12/24 08:59 10/13/24 09:00 1 EACH Home Med (Home Medication) TAKE ONE HALF TABLET... HS PO 10/13/24 21:00 10/15/24 10:52 DC 10/14/24 19:59 0.5 EACH Latanoprost (Xalatan) 1 DROP HS OP 10/12/24 21:00 11/11/24 20:59 10/15/24 21:44 1 DROP Lorazepam (AtiVAN) 1 mg Q4H PRN IVP DIRECTED 10/15/24 11:00 10/22/24 10:59 Magnesium Sulfate 50 ml @ 0 mls/hr PROTOCOL PRN IV low mag level 10/12/24 09:30 11/11/24 09:29 Melatonin (Melatonin) 5 mg HS PO 10/13/24 21:00 10/13/24 13:03 DC Metoclopramide HCl (regLAN 10MG IV) 5 mg TIDAC IVP 10/15/24 17:00 11/14/24 16:59 10/16/24 06:16 5 MG Morphine Sulfate (morPHINE 2MG SYG) 2 mg Q2H PRN IVP SEVERE PAIN (7-10) 10/15/24 16:30 10/22/24 16:29 Ondansetron HCl (zoFRAN 4MG TABLET) 4 mg Q8H PRN PO NAUSEA/VOMITING 10/15/24 11:00 11/14/24 10:59 Pharmacy Profile Note (Pharmacy Communication) 1 each ONCE MISC 10/15/24 16:30 10/15/24 16:33 DC Piperacillin Sod/ Tazobactam Sod (Zosyn 3.375gm+NS 50ml) 3.375 gm Q8H IVPB 10/11/24 13:00 10/14/24 12:04 DC 10/14/24 05:11 3.375 GM Piperacillin Sod/ Tazobactam Sod (Zosyn 3.375gm+NS 50ml) 3.375 gm [id number] IV 10/14/24 21:00 10/14/24 16:08 DC Potassium Chloride 100 ml @ 100 mls/hr AD PRN IV POTASSIUM PROTOCOL 10/12/24 09:30 11/11/24 09:29 Potassium Chloride (K-Dur/Klor-Con 20meq) 20 meq AD PRN PO POTASSIUM PROTOCOL 10/12/24 09:30 11/11/24 09:29 Potassium Chloride (KCl 10% Elixir 20meq/15ml) 20 meq AD PRN PO POTASSIUM PROTOCOL 10/12/24 09:30 11/11/24 09:29 10/14/24 09:23 20 MEQ Scopolamine HBr (Transderm-Scop) 1 patch Q72H TD 10/15/24 11:00 11/14/24 10:59 10/15/24 13:25 1 PATCH Simvastatin (zoCOR) 40 mg HS PO 10/12/24 21:00 10/13/24 13:11 DC Sodium Chloride 1,000 ml @ 80 mls/hr [id number] IV 10/11/24 12:30 11/10/24 12:29 10/16/24 06:30 80 MLS/HR Sodium Chloride (NS 50ml) 50 ml AD IV 10/11/24 13:00 10/11/24 12:35 DC Tamsulosin HCl (FloMAX) 0.4 mg DAILY PO 10/13/24 09:00 10/15/24 10:52 DC 10/15/24 10:14 0.4 MG DIAGNOSTICS / RADIOLOGY: [ ] ASSESSMENT: Bacteremia gram negative E coli POA Metabolic encephalopathy POA Suspecting sepsis secondary to UTI POA Orophargeal dysphasia POA: Acute respiratory failure with hypoxia requiring oxygen supplemental non- rebreather POA improved Ground Fall unwitnessed POA acute Rhabdomyolysis POA Possible URI with associated sputum production vs Aspiration Pneumonia UTI Gram negative e coli POA chronic problems: Lewy body dementia Hyperlipidemia Debility Diabetes mellitus type 2 PLAN: Admit: PCCU condition: Guarded Status: DNR status IVF: NS at 80 ML an hour We will continue to monitor CK levels 529 Consultants tele neuro, canoe inspector's and Infectious disease Antibiotics: Zosyn 3.375 g every 8 hours WBC improving Oxygen supplement to keep O2 sats above 92%. Labs cbc, cmp, mag+ Replace electrolytes as needed as per protocol to keep potassium above 4.0 magnesium 2.0. Home medications reviewed and reconciled. Flomax 0.4 mg daily, carbidopa and levodopa, rivastigmine and simvastatin speech positive for aspiration. NPO status: NGT for mediations and bolus feeding which is currently placed on HOLD given to severe reflux. fall precaution Decubitus precautions reposition every2 hours aggressive offloading Pain management: Tylenol 650 as needed Supportive measures: DVT ppx, GI ppx all questions answered case management[facility] [place] [facility] status Supervising MD: Dr. Vince Hoffman c/d This document was generated in part using voice recognition software, occasional wrong word or sound alike substitutions may have occurred due to the inherent limitations of voice recognition software. Read the chart carefully and recognize using context, where the substitutions have occurred. Although every effort was made to edit the content, manager of training and typing errors may occur ATTESTATION BY PHYSICIAN I have seen and examined the patient. I reviewed the documentation, medical decision making, and treatment plan as noted by the mid-level provider above. I agree with the findings and plan of care. Justyna Clarke MD, ELIZABETH NP Oct 16, 2024 08:48 JUSTYNA CLARKE MD Oct 16, 2024 17:43
[2024-10-16] MEDS: morPHINE 2 MG SYG IVP PRN (15:59)
[2024-10-16] MEDS ORDERED: COMPOUND IV REFRIGERATED 1 EACH IVSOLN MISC PRN (17:00)
[2024-10-16] MEDS: VANCOMYCIN 2GM/500 ML BAG 500 ML IV ONE (17:04)
[2024-10-16] MEDS: DEXTROSE 5 % AND 0.9 % NACL 1,000 ML IV SCH (19:49)
[2024-10-16] MEDS ORDERED: VANCOMYCIN PROTOCOL PER PHARMACY IV SCH (21:00)
--- NOTE | 2024-10-16 22:35 | NUR ---
Pt. received via bed from 2nd Floor, non-coherent, not at all oriented, mittens in place to hands, NGT to (Loi)Nehemiah patent. clamped @ this time, rails up x3, call-light within easy reach; no issues @ this time.
--- NOTE | 2024-10-16 23:57 | NUR ---
@2220pm gave report to nurse meza in 3rd floor. Patient [id number] ONLY. RESPIRATIONS EVEN AND UNLABORED. NO S/S OF DISTRESS. ON ROOM AIR. NG TUBE TO RIGHT NARE. ON D5 0.9% NS IV FLUIDS AT 80ML/HR. HOSPICE CONSULTED DURING THE DAY.
[2024-10-17] VITALS (7 sets, daily range): BP systolic 110–165; BP diastolic 60–83; PULSE 54–70; RESP 18; TEMP 98.2–101; O2SAT 94
[2024-10-17] MEDS: VANCOMYCIN 1G/250ML KIT 250 ML IV SCH (05:17)
--- NOTE | 2024-10-17 07:59 | PN ---
INFECTIOUS DISEASE FOLLOWUP NOTE DATE OF SERVICE: 10/16/2024 SUBJECTIVE: The patient is seen and examined at bedside. Remained encephalopathic. Still has some fever. No rashes or itchiness. Tolerating NG tube feeding. No vomiting, no diarrhea. No rashes or itchiness. PHYSICAL EXAMINATION: VITAL SIGNS: Temperature 99.5. EYES: No icterus. Pupils equal and reactive. HENT: No oral mucosa. No oral thrush seen. NECK: Supple, no JVD or thyromegaly. LUNGS: Good air entry. No rales, no rhonchi. CARDIOVASCULAR: S1, S2 regular. No murmur heard. ABDOMEN: Full, soft, nontender. Bowel sound is present. CENTRAL NERVOUS SYSTEM: The patient is awake, confused, bedbound, nonverbal. SKIN: No rashes, no itchiness. MUSCULOSKELETAL: No joint swelling, erythema or tenderness. BACK: No deformity, no pressure ulcer. ASSESSMENT: A 74-year-old male admitted with fever or chills. Current problems include: * Escherichia coli bacteremia and sepsis. * Urinary tract infection. * Possible aspiration pneumonia. * Rhabdomyolysis. * Parkinson's disease. * Dementia. * Mechanical fall. * Oropharyngeal dysphagia. PLAN: * Continue Zosyn. * The patient will continue vancomycin. * Continue NG tube feeding. * Continue pain management. * Continue DVT prophylaxis. * Monitor electrolytes. * Continue antiemetic. * The patient will continue . TID: [id number] RECEIPT: [id number]
--- NOTE | 2024-10-17 11:03 | NUR ---
DCP: [facility] Ivan reviewed notes. Ivan verified with Martha at [facility] that pt can go to [facility] with hospice. Ivan spoke to son Melanie and informed that pt does have option to go to [facility] with hospice and [facility] will cover and Medicare will cover hospice. Son agreeable to this. Son wanting [facility]. Educated son on hospice agency contracts at [facility]. Son agreeable to switching hospice, if [facility] can not provide services. Sw to update son as auth recd. Ivan spoke to Judith and informed of dcp plan. Judith to submit referral for auth. Per Judith, [facility] can submit 1x contract, but if denied, [facility] uses [facility] SW spoke to Martha at [facility] and informed of plan. She will submit contract to Ra[facility]. Martha to notify if approved.
--- NOTE | 2024-10-17 12:11 | NUR ---
PT PULLED OUT NG TUBE. SECURED IV LINE WITH COBAN AND MITTENS DC'D
[2024-10-17] MEDS: LORazepam 2 MG/ML 1 ML VIAL IVP PRN (12:18)
--- NOTE | 2024-10-17 12:48 | PN ---
[facility] PROGRESS NOTE Date of Service: Oct 17, 2024 Time of Service: 12:[address] Allen SUBJECTIVE: [ ] This is a 74-year-old male that was three 2024 presents in ER with altered radiation admit to status and ground level fall and found to have severe sepsis and UTI. Tele neuro was done suspecting encephalopathy due to infection over acute ischemic stroke patient has a history of Lewy body progression. Patient also appear hypoxia was placed on non-rebreather on admission he is currently on nasal cannula4 L. Family apparently do not Wanna have aggressive measures hospice was discussed with patient family per line assembler aircraft's. Patient was seen in ED patient apparently had a fall in ED unwitnessed he reports of right elbow pain in reports he bumps his head we will get a CT head and x-ray of right elbow. Patient has underlying Lewy dementia. He is high- risk for falls therefore one-to-one sitter we will be applied to his care. No family at bedside. Patient was able to answer all my questions. And follow commands 10/13/24 patient is seen patient is awake family at bedside son reports this is his norm mentation there are requesting SNF: We will wait for ID recommendations repeat cultures so far negative blood cultures on admission E coli. We will continue with broad-spectrum antibiotics. 10/14/2024. Patient was seen and examined patient appears fragile and weak. Patient was evaluated by speech and given to patient signs of aspiration. Cough during administration of whole pills. Bedside swallow eval positive for aspiration. Recommend mechanical soft chopped solids with nectar thick liquids. older worker specialist spoke with family in regards DNR waiting for family to decide. 1300 the patient family proceed with DNR STATUS. licensed clinical social worker for hospice 10/15/24 patient appears fragile and weak. Patient with NG tube unable to administer medication patient has reflux. Patient continues to gargle head of the bed at 45 at all times. Patient is DNR status [facility]. All questions addressed. 10/16/24 [facility] family requested [facility] home in [facility] possible on Thursday. Patient is DNR status. Primary nurse reports patient requires oral suctioning. Head of the bed at 45 at all times. No family at bedside 10/17 patient was seen by nurse practitioner and physician during rounding in room 305. Patient is pending hospice acceptance at this moment. We will continue to monitor patient in the meantime. We will not be ordering any labs. Once patient accepted we will remove the NG tube and pairs patient on Ativan PO outpatient. REVIEW OF SYSTEMS ROS is limited since patient is unable to participate in conversation PHYSICAL EXAM GENERAL APPEARANCE: Patient appears lethargic at bedside. Moans when asked about his name NEUROLOGICAL: Patient does not follow commands for neurological exam. Patient has tremors in the upper extremity HEENT: Face is symmetric. Pupils are equal and reactive. Extraocular movements are intact. NECK: Supple. No JVD. No thyromegaly. No submental, submandibular, pre-/postauricular, occipital or supraclavicular lymphadenopathy. CHEST: Normal chest expansion. No Telemetry. LUNGS: Absence of any rales, rhonchi or any wheezing. CARDIOVASCULAR: Regular. S1 and S2 normal. No appreciable rubs, murmurs or gallops. ABDOMEN: Soft, nontender, and nondistended. There is no rebound, voluntary guarding, or rigidity. : Deferred. No Friedman. EXTREMITIES: Non-edematous and not cyanotic. No clubbing. Good capillary refill. SKIN: No skin breakdown. Vital Signs (last 8hr) Date Time Temp Pulse Resp B/P (MAP) Pulse Ox O2 Delivery O2 Flow Rate FiO2 10/17/24 08:11 94 Room Air* 0 21 10/17/24 08:00 99.3 68 18 165/80 98 Room Air LABS: Laboratory: Test 10/16/24 19:44 10/16/24 06:01 10/16/24 03:52 Range/Units Whole Blood Glucose 86 70-110 MG/DL Sodium Level 137 136-145 mmol/L Potassium Level 3.4 L 3.5-5.1 mmol/L Chloride Level 104 101-111 mmol/L Carbon Dioxide Level 27 21-32 mmol/L Blood Urea Nitrogen 17 7-18 mg/dL Creatinine 0.7 0.5-1.3 mg/dL Glomerular Filtration Rate Calc 96 >90 mL/min Random Glucose 88 70-105 mg/dL Total Calcium 8.1 L 8.5-10.1 mg/dL Magnesium Level 1.80 1.80-2.40 mg/dL Total Bilirubin 1.8 H 0.2-1.0 mg/dL Aspartate Amino Transf (AST/SGOT) 52 H 10-37 U/L Alanine Aminotransferase (ALT/SGPT) 66 12-78 U/L Alkaline Phosphatase 56 50-136 U/L Total Protein 6.6 6.0-8.3 g/dL Albumin 2.5 L 3.5-5.0 g/dL White Blood Count 9.3 4.8-10.8 K/uL Red Blood Count 4.42 L 4.50-6.20 MIL/uL Hemoglobin 14.0 14.0-18.0 g/dL Hematocrit 40.4 L 42-54 % Mean Corpuscular Volume 91.4 79-99 fL Mean Corpuscular Hemoglobin 31.7 27.0-33.0 pg Mean Corpuscular Hemoglobin Concent 34.7 32.0-36.0 g/dL Red Cell Distribution Width 13.1 11.0-15.5 % Platelet Count 219 130-400 K/uL Mean Platelet Volume 9.9 7.5-10.5 fL Immature Granulocyte % (Auto) 0.9 0-1 % Neutrophils (%) (Auto) 77.1 H 40.0-77.0 % Lymphocytes (%) (Auto) 11.1 L 21.0-51.0 % Monocytes (%) (Auto) 10.6 3.0-13.0 % Eosinophils (%) (Auto) 0.1 0.0-8.0 % Basophils (%) (Auto) 0.2 0.0-5.0 % Neutrophils # (Auto) 7.2 1.8-7.7 K/uL Lymphocytes # (Auto) 1.0 1.0-4.8 K/uL Monocytes # (Auto) 1.0 0.1-1.0 K/uL Eosinophils # (Auto) 0.01 0.00-0.70 K/uL Basophils # (Auto) 0.02 0.00-0.20 K/uL Absolute Immature Granulocyte (auto 0.08 0-1 K/uL Nucleated Red Blood Cells 0.0 0.0-0.19 % Current Medications Medications (Trade) Dose Ordered Sig/Edgar Route PRN Reason Start Time Stop Time Status Last Admin Dose Admin Acetaminophen (TYLenol 500MG TAB) 500 mg Q6H PRN PO MILD PAIN (1-3) 10/11/24 12:30 11/10/24 12:29 10/15/24 10:40 500 MG Acetaminophen (TYLenol 650MG SUPPOSITORY) 650 mg Q6H PRN RC MILD PAIN (1-3) 10/14/24 23:30 11/13/24 23:29 10/16/24 22:27 650 MG Albuterol Sulfate (Proventil 0.083% 2.5mg/3ml) 2.5MG Q6H PRN IH SHORTNESS OF BREATH 10/11/24 12:30 11/10/24 12:29 10/16/24 07:27 2.5 MG Artificial Tears (Artificial Tears) 2 DROP OU PRN DRY EYES Q1H PRN OU DRY EYES 10/15/24 11:00 11/14/24 10:59 Brimonidine Tartrate (Alphagan P) 1 DROP BID OP 10/12/24 21:00 11/11/24 20:59 10/17/24 09:34 1 ML Carbidopa/Levodopa (Sinemet 25-100 Tab) 1 each DAILY PO 10/13/24 09:00 10/15/24 10:52 DC 10/15/24 10:14 1 EACH Ceftriaxone Sodium (Rocephin 2gm Inj) 2 gm Q24H IVPB 10/14/24 12:30 10/17/24 12:41 DC 10/17/24 12:17 2 GM Dextrose/Sodium Chloride 1,000 ml @ 80 mls/hr [id number] IV 10/16/24 19:30 11/15/24 19:29 10/17/24 09:32 80 MLS/HR Famotidine (Pepcid 20mg Vial) 20 mg BID IV 10/11/24 21:00 11/10/24 20:59 10/17/24 09:32 20 MG Haloperidol (Haldol) 1 mg Q1H PRN PO DIRECTED 10/15/24 11:00 11/14/24 10:59 Home Med (Home Medication) (Timolol Maleate 1 DROP) BID OP 10/12/24 21:00 11/11/24 20:59 10/17/24 09:32 1 DROP Home Med (Home Medication) Entacapone 200 MG TID PO 10/12/24 14:00 10/15/24 10:52 DC 10/15/24 10:41 1 TAB Home Med (Home Medication) MELATONIN 3MG DAILY PO 10/13/24 09:00 3/6/25 11:17 DC Home Med (Home Medication) MELATONIN 3MG HS PO 10/13/24 21:00 10/15/24 10:52 DC 10/14/24 19:58 1 EACH Home Med (Home Medication) Rivastigmine 4.6MG/24H PATCH DAILY TD 10/13/24 09:00 11/12/24 08:59 10/17/24 09:34 1 EACH Home Med (Home Medication) TAKE ONE HALF TABLET... HS PO 10/13/24 21:00 10/15/24 10:52 DC 10/14/24 19:59 0.5 EACH Latanoprost (Xalatan) 1 DROP HS OP 10/12/24 21:00 11/11/24 20:59 10/16/24 21:32 1 DROP Lorazepam (AtiVAN) 1 mg Q4H PRN IVP DIRECTED 10/15/24 11:00 10/22/24 10:59 10/17/24 12:18 1 MG Magnesium Sulfate 50 ml @ 0 mls/hr PROTOCOL PRN IV low mag level 10/12/24 09:30 11/11/24 09:29 Melatonin (Melatonin) 5 mg HS PO 10/13/24 21:00 10/13/24 13:03 DC Metoclopramide HCl (regLAN 10MG IV) 5 mg TIDAC IVP 10/15/24 17:00 11/14/24 16:59 10/17/24 12:17 5 MG Morphine Sulfate (morPHINE 2MG SYG) 2 mg Q2H PRN IVP SEVERE PAIN (7-10) 10/15/24 16:30 10/22/24 16:29 10/16/24 15:59 2 MG Ondansetron HCl (zoFRAN 4MG TABLET) 4 mg Q8H PRN PO NAUSEA/VOMITING 10/15/24 11:00 11/14/24 10:59 Pharmacy Profile Note (Pharmacy Communication) 1 each ONCE MISC 10/15/24 16:30 10/15/24 16:33 DC Piperacillin Sod/ Tazobactam Sod (Zosyn 3.375gm+NS 50ml) 3.375 gm Q8H IV 10/17/24 13:00 10/27/24 12:59 UNV Piperacillin Sod/ Tazobactam Sod (Zosyn 3.375gm+NS 50ml) 3.375 gm Q8H IVPB 10/11/24 13:00 10/14/24 12:04 DC 10/14/24 05:11 3.375 GM Piperacillin Sod/ Tazobactam Sod (Zosyn 3.375gm+NS 50ml) 3.375 gm [id number] IV 10/14/24 21:00 10/14/24 16:08 DC Potassium Chloride 100 ml @ 100 mls/hr AD PRN IV POTASSIUM PROTOCOL 10/12/24 09:30 11/11/24 09:29 Potassium Chloride (K-Dur/Klor-Con 20meq) 20 meq AD PRN PO POTASSIUM PROTOCOL 10/12/24 09:30 11/11/24 09:29 Potassium Chloride (KCl 10% Elixir 20meq/15ml) 20 meq AD PRN PO POTASSIUM PROTOCOL 10/12/24 09:30 11/11/24 09:29 10/14/24 09:23 20 MEQ Scopolamine HBr (Transderm-Scop) 1 patch Q72H TD 10/15/24 11:00 11/14/24 10:59 10/15/24 13:25 1 PATCH Simvastatin (zoCOR) 40 mg HS PO 10/12/24 21:00 10/13/24 13:11 DC Sodium Chloride 1,000 ml @ 80 mls/hr [id number] IV 10/11/24 12:30 11/10/24 12:29 10/16/24 12:43 80 MLS/HR Sodium Chloride (NS 50ml) 50 ml AD IV 10/11/24 13:00 10/11/24 12:35 DC Tamsulosin HCl (FloMAX) 0.4 mg DAILY PO 10/13/24 09:00 10/15/24 10:52 DC 10/15/24 10:14 0.4 MG Vancomycin HCl 250 ml @ 125 mls/hr Q12H IV 10/17/24 06:00 10/27/24 05:59 10/17/24 05:17 125 MLS/HR Vancomycin HCl (Vancomycin Protocol) 1 each AD IV 10/16/24 21:00 10/30/24 20:59 DIAGNOSTICS / RADIOLOGY: [ ] ASSESSMENT: Bacteremia gram negative E coli POA Metabolic encephalopathy POA Suspecting sepsis secondary to UTI POA Orophargeal dysphasia POA: Acute respiratory failure with hypoxia requiring oxygen supplemental non- rebreather POA improved Ground Fall unwitnessed POA acute Rhabdomyolysis POA Possible URI with associated sputum production vs Aspiration Pneumonia UTI Gram negative e coli POA chronic problems: Lewy body dementia Hyperlipidemia Debility Diabetes mellitus type 2 PLAN: Hospice ATTESTATION BY PHYSICIAN I have seen and examined the patient. I reviewed the documentation, medical decision making, and treatment plan as noted by the mid-level provider above. I agree with the findings and plan of care. MARIA C ALLEN MD, KATARZYNA B CLASSROOM ASSISTANT Oct 17, 2024 12:47
[2024-10-17] MEDS: ZOSYN 3.375GM +NS 50ML IV SCH (13:30)
[2024-10-18] VITALS (10 sets, daily range): BP systolic 130–159; BP diastolic 70–88; PULSE 55–89; RESP 18–20; TEMP 98.3–99.3; O2SAT 96–99
--- NOTE | 2024-10-18 12:00 | NUR ---
ASKED BY ARLEN MATIAS TO PROVIDE A H[facility] ORDER FOR [facility]. WAS ADVISED BY RAUL WESLEY THAT HOSPICE BED WAS SOUGHT BY PT/FAMILY AT [facility]. REVIEWED [facility] NOTES AND PLACED ORDER. ADVISED DR BOND OF SAME SINCE NOTES STATES PT WAS GOING FOR HOSPIC E
--- NOTE | 2024-10-18 15:53 | PN ---
[facility] PROGRESS NOTE Date of Service: Oct 18, 2024 Time of Service: 15:51 SUBJECTIVE: [ ] This is a 74-year-old male that was three 2024 presents in ER with altered radiation admit to status and ground level fall and found to have severe sepsis and UTI. Tele neuro was done suspecting encephalopathy due to infection over acute ischemic stroke patient has a history of Lewy body progression. Patient also appear hypoxia was placed on non-rebreather on admission he is currently on nasal cannula4 L. Family apparently do not Wanna have aggressive measures hospice was discussed with patient family per lens and frames prescription clerk's. Patient was seen in ED patient apparently had a fall in ED unwitnessed he reports of right elbow pain in reports he bumps his head we will get a CT head and x-ray of right elbow. Patient has underlying Lewy dementia. He is high- risk for falls therefore one-to-one sitter we will be applied to his care. No family at bedside. Patient was able to answer all my questions. And follow commands 10/13/24 patient is seen patient is awake family at bedside son reports this is his norm mentation there are requesting SNF: We will wait for ID recommendations repeat cultures so far negative blood cultures on admission E coli. We will continue with broad-spectrum antibiotics. 10/14/2024. Patient was seen and examined patient appears fragile and weak. Patient was evaluated by speech and given to patient signs of aspiration. Cough during administration of whole pills. Bedside swallow eval positive for aspiration. Recommend mechanical soft chopped solids with nectar thick liquids. garbage worker spoke with family in regards DNR waiting for family to decide. 1300 the patient family proceed with DNR STATUS. hospice social worker for hospice 10/15/24 patient appears fragile and weak. Patient with NG tube unable to administer medication patient has reflux. Patient continues to gargle head of the bed at 45 at all times. Patient is DNR status [facility]. All questions addressed. 10/16/24 [facility] family requested comfort home in [facility] possible on Thursday. Patient is DNR status. Primary nurse reports patient requires oral suctioning. Head of the bed at 45 at all times. No family at bedside 10/17 patient was seen by nurse practitioner and physician during rounding in room 305. Patient is pending hospice acceptance at this moment. We will continue to monitor patient in the meantime. We will not be ordering any labs. Once patient accepted we will remove the NG tube and pairs patient on Ativan PO outpatient. 10/18/24 patient was seen and examined. Case discussed with RN patient is pending hospice acceptance REVIEW OF SYSTEMS ROS is limited since patient is unable to participate in conversation PHYSICAL EXAM GENERAL APPEARANCE: Patient appears lethargic at bedside. Moans when asked about his name NEUROLOGICAL: Patient does not follow commands for neurological exam. Patient has tremors in the upper extremity HEENT: Face is symmetric. Pupils are equal and reactive. Extraocular movements are intact. NECK: Supple. No JVD. No thyromegaly. No submental, submandibular, pre- /postauricular, occipital or supraclavicular lymphadenopathy. CHEST: Normal chest expansion. No Telemetry. LUNGS: Absence of any rales, rhonchi or any wheezing. CARDIOVASCULAR: Regular. S1 and S2 normal. No appreciable rubs, murmurs or gallops. ABDOMEN: Soft, nontender, and nondistended. There is no rebound, voluntary guarding, or rigidity. : Deferred. No Friedman. EXTREMITIES: Non-edematous and not cyanotic. No clubbing. Good capillary refill. SKIN: No skin breakdown. Vital Signs (last 8hr) Date Time Temp Pulse Resp B/P (MAP) Pulse Ox O2 Delivery O2 Flow Rate FiO2 10/18/24 08:07 97 Room Air* 0 21 10/18/24 08:00 98.6 57 20 131/78 97 Room Air LABS: Laboratory: Test 10/16/24 19:44 Range/Units Whole Blood Glucose 86 70-110 MG/DL Current Medications Medications (Trade) Dose Ordered Sig/Edgar Route PRN Reason Start Time Stop Time Status Last Admin Dose Admin Acetaminophen (TYLenol 500MG TAB) 500 mg Q6H PRN PO MILD PAIN (1-3) 10/11/24 12:30 11/10/24 12:29 10/15/24 10:40 500 MG Acetaminophen (TYLenol 650MG SUPPOSITORY) 650 mg Q6H PRN RC MILD PAIN (1-3) 10/14/24 23:30 11/13/24 23:29 10/16/24 22:27 650 MG Albuterol Sulfate (Proventil 0.083% 2.5mg/3ml) 2.5MG Q6H PRN IH SHORTNESS OF BREATH 10/11/24 12:30 11/10/24 12:29 10/16/24 07:27 2.5 MG Artificial Tears (Artificial Tears) 2 DROP OU PRN DRY EYES Q1H PRN OU DRY EYES 10/15/24 11:00 11/14/24 10:59 Brimonidine Tartrate (Alphagan P) 1 DROP BID OP 10/12/24 21:00 11/11/24 20:59 10/18/24 09:46 1 ML Carbidopa/Levodopa (Sinemet 25-100 Tab) 1 each DAILY PO 10/13/24 09:00 10/15/24 10:52 DC 10/15/24 10:14 1 EACH Ceftriaxone Sodium (Rocephin 2gm Inj) 2 gm Q24H IVPB 10/14/24 12:30 10/17/24 12:41 DC 10/17/24 12:17 2 GM Dextrose/Sodium Chloride 1,000 ml @ 80 mls/hr [id number] IV 10/16/24 19:30 11/15/24 19:29 10/18/24 09:44 80 MLS/HR Famotidine (Pepcid 20mg Vial) 20 mg BID IV 10/11/24 21:00 11/10/24 20:59 10/18/24 09:45 20 MG Haloperidol (Haldol) 1 mg Q1H PRN PO DIRECTED 10/15/24 11:00 11/14/24 10:59 Home Med (Home Medication) (Timolol Maleate 1 DROP) BID OP 10/12/24 21:00 11/11/24 20:59 10/18/24 09:46 1 DROP Home Med (Home Medication) Entacapone 200 MG TID PO 10/12/24 14:00 10/15/24 10:52 DC 10/15/24 10:41 1 TAB Home Med (Home Medication) MELATONIN 3MG DAILY PO 10/13/24 09:00 10/13/24 11:17 DC Home Med (Home Medication) MELATONIN 3MG HS PO 10/13/24 21:00 10/15/24 10:52 DC 10/14/24 19:58 1 EACH Home Med (Home Medication) Rivastigmine 4.6MG/24H PATCH DAILY TD 10/13/24 09:00 4/5/25 08:59 10/18/24 09:45 1 EACH Home Med (Home Medication) TAKE ONE HALF TABLET... HS PO 10/13/24 21:00 10/15/24 10:52 DC 10/14/24 19:59 0.5 EACH Latanoprost (Xalatan) 1 DROP HS OP 10/12/24 21:00 11/11/24 20:59 10/16/24 21:32 1 DROP Lorazepam (AtiVAN) 1 mg Q4H PRN IVP DIRECTED 10/15/24 11:00 10/22/24 10:59 10/17/24 12:18 1 MG Magnesium Sulfate 50 ml @ 0 mls/hr PROTOCOL PRN IV low mag level 10/12/24 09:30 11/11/24 09:29 Melatonin (Melatonin) 5 mg HS PO 10/13/24 21:00 10/13/24 13:03 DC Metoclopramide HCl (regLAN 10MG IV) 5 mg TIDAC IVP 10/15/24 17:00 11/14/24 16:59 10/18/24 09:45 5 MG Morphine Sulfate (morPHINE 2MG SYG) 2 mg Q2H PRN IVP SEVERE PAIN (7-10) 10/15/24 16:30 10/22/24 16:29 10/16/24 15:59 2 MG Ondansetron HCl (zoFRAN 4MG TABLET) 4 mg Q8H PRN PO NAUSEA/VOMITING 10/15/24 11:00 11/14/24 10:59 Pharmacy Profile Note (Pharmacy Communication) 1 each ONCE MISC 10/15/24 16:30 10/15/24 16:33 DC Piperacillin Sod/ Tazobactam Sod (Zosyn 3.375gm+NS 50ml) 3.375 gm Q8H IV 10/17/24 13:00 10/17/24 14:25 DC 10/17/24 13:30 3.375 GM Piperacillin Sod/ Tazobactam Sod (Zosyn 3.375gm+NS 50ml) 3.375 gm Q8H IVPB 10/11/24 13:00 10/14/24 12:04 DC 10/14/24 05:11 3.375 GM Piperacillin Sod/ Tazobactam Sod (Zosyn 3.375gm+NS 50ml) 3.375 gm [id number] IV 10/14/24 21:00 10/14/24 16:08 DC Potassium Chloride 100 ml @ 100 mls/hr AD PRN IV POTASSIUM PROTOCOL 10/12/24 09:30 11/11/24 09:29 Potassium Chloride (K-Dur/Klor-Con 20meq) 20 meq AD PRN PO POTASSIUM PROTOCOL 10/12/24 09:30 11/11/24 09:29 Potassium Chloride (KCl 10% Elixir 20meq/15ml) 20 meq AD PRN PO POTASSIUM PROTOCOL 10/12/24 09:30 11/11/24 09:29 10/14/24 09:23 20 MEQ Scopolamine HBr (Transderm-Scop) 1 patch Q72H TD 10/15/24 11:00 11/14/24 10:59 10/18/24 09:45 1 PATCH Simvastatin (zoCOR) 40 mg HS PO 10/12/24 21:00 10/13/24 13:11 DC Sodium Chloride 1,000 ml @ 80 mls/hr [id number] IV 10/11/24 12:30 11/10/24 12:29 10/16/24 12:43 80 MLS/HR Sodium Chloride (NS 50ml) 50 ml AD IV 10/11/24 13:00 10/11/24 12:35 DC Tamsulosin HCl (FloMAX) 0.4 mg DAILY PO 10/13/24 09:00 10/15/24 10:52 DC 10/15/24 10:14 0.4 MG Vancomycin HCl 250 ml @ 125 mls/hr Q12H IV 10/17/24 06:00 10/17/24 14:25 DC 10/17/24 05:17 125 MLS/HR Vancomycin HCl (Vancomycin Protocol) 1 each AD IV 10/16/24 21:00 10/17/24 14:25 DC DIAGNOSTICS / RADIOLOGY: [ ] ASSESSMENT: Bacteremia gram negative E coli POA Metabolic encephalopathy POA Suspecting sepsis secondary to UTI POA Orophargeal dysphasia POA: Acute respiratory failure with hypoxia requiring oxygen supplemental non- rebreather POA improved Ground Fall unwitnessed POA acute Rhabdomyolysis POA Possible URI with associated sputum production vs Aspiration Pneumonia UTI Gram negative e coli POA chronic problems: Lewy body dementia Hyperlipidemia Debility Diabetes mellitus type 2 PLAN: Hospice VARUN SALAZAR MD Oct 18, 2024 15:53
[2024-10-19] VITALS (9 sets, daily range): BP systolic 137–154; BP diastolic 66–75; PULSE 50–64; RESP 18–20; TEMP 98.2–99.4; O2SAT 93–98
--- NOTE | 2024-10-19 12:40 | NUR ---
[facility]_ [facility] Ivan spoke to Judith at [facility]. ND requesting MD notes regarding discussion on hospice. Ivan faxed clinicals from 10-15 thru 10/19 for review. Waiting on response
--- NOTE | 2024-10-19 19:55 | NUR ---
ADVISED BY NURSE RAGSDALE THAT FAMILY AT BEDSIDE VERY UPSET STATES THEY DID NOT KNOW HE WAS GOING TO HOSPICE AND THAT THEY WANT HIM TO BE FED AND TO HAVE ABX SPOKE WITH [facility] SISTER ON SPEAKER PHONE WITH SON ANDREA, THE ELDEST. ANDREA STATES HE WANT GAUDENCIO TO BE TOLD OF PLAN OF CARE AND SHE CAN RELAY INFO TO HIM THEY STATES THEY WANT HIM TO GET BETTER. AND THAT THEY WERE LOOKING FOR HIM TO FIND SOMEWHERE TO LIVE.STATE THEY WOULD PAY FOR A FACILITY, EXPLAINED THE DIFFICULTY WITH THAT LONG CONVERSATION, QUESTIONS ANSWERED. SISTER AND SON UPSET THAT HE IS NOT GETTING FED. ADVISED DR BOND, DISCUSSED NEW PLAN OF CARE TO INCLDUE POSSIBLE PEG THAT IS NOW FAMILY REQUEST ORDERS REC'D. ADVISED DR. Polo THAT PATIENT IS *NOT * YET ON HOSPICE. ORDERS TO RESUME ABX REC'D AND PLACED. SPEECH THERAPY RE EVAL PENDING. FAMILY STATES THAT THEY ARE HOPING HE WILL HAVE CONTINUED NOURISHMENT TILL END OF LIFE THROUGH PEG IF NEEDED. HOPING FOR OTHER OPTIONS FOR PLACEMENT
[2024-10-19] MEDS ORDERED: 0.9%NACL 50ML IV SCH (21:00)
[2024-10-19] MEDS: ZOSYN 3.375GM +NS 50ML IVPB SCH (21:16)
--- NOTE | 2024-10-19 21:34 | PN ---
[facility] PROGRESS NOTE Date of Service: Oct 19, 2024 Time of Service: 21:31 SUBJECTIVE: [ ] This is a 74-year-old male that was three 2024 presents in ER with altered radiation admit to status and ground level fall and found to have severe sepsis and UTI. Tele neuro was done suspecting encephalopathy due to infection over acute ischemic stroke patient has a history of Lewy body progression. Patient also appear hypoxia was placed on non-rebreather on admission he is currently on nasal cannula4 L. Family apparently do not Wanna have aggressive measures hospice was discussed with patient family per guest services assistant's. Patient was seen in ED patient apparently had a fall in ED unwitnessed he reports of right elbow pain in reports he bumps his head we will get a CT head and x-ray of right elbow. Patient has underlying Lewy dementia. He is high- risk for falls therefore one-to-one sitter we will be applied to his care. No family at bedside. Patient was able to answer all my questions. And follow commands 10/13/24 patient is seen patient is awake family at bedside son reports this is his norm mentation there are requesting SNF: We will wait for ID recommendations repeat cultures so far negative blood cultures on admission E coli. We will continue with broad-spectrum antibiotics. 10/14/2024. Patient was seen and examined patient appears fragile and weak. Patient was evaluated by speech and given to patient signs of aspiration. Cough during administration of whole pills. Bedside swallow eval positive for aspiration. Recommend mechanical soft chopped solids with nectar thick liquids. muffle worker spoke with family in regards DNR waiting for family to decide. 1300 the patient family proceed with DNR STATUS. social studies teacher for hospice 10/15/24 patient appears fragile and weak. Patient with NG tube unable to administer medication patient has reflux. Patient continues to gargle head of the bed at 45 at all times. Patient is DNR status waiting for hosp[facility]. All questions addressed. 10/16/24 waiting for [facility] family requested comfort home in [facility] possible on Thursday. Patient is DNR status. Primary nurse reports patient requires oral suctioning. Head of the bed at 45 at all times. No family at bedside 10/17 patient was seen by nurse practitioner and physician during rounding in room 305. Patient is pending hospice acceptance at this moment. We will continue to monitor patient in the meantime. We will not be ordering any labs. Once patient accepted we will remove the NG tube and pairs patient on Ativan PO outpatient. 10/18/24 patient was seen and examined. Case discussed with RN patient is pending hospice acceptance 10/19/24 patient was seen and examined. Case discussed with RN . Per family support specialist does not want hospice. They want treatment/feeding tube. necessary consults have been made. ID contacted for antibiotic recommendations REVIEW OF SYSTEMS ROS is limited since patient is unable to participate in conversation PHYSICAL EXAM GENERAL APPEARANCE: Patient appears lethargic at bedside. Moans when asked about his name NEUROLOGICAL: Patient does not follow commands for neurological exam. Patient has tremors in the upper extremity HEENT: Face is symmetric. Pupils are equal and reactive. Extraocular movements are intact. NECK: Supple. No JVD. No thyromegaly. No submental, submandibular, pre- /postauricular, occipital or supraclavicular lymphadenopathy. CHEST: Normal chest expansion. No Telemetry. LUNGS: Absence of any rales, rhonchi or any wheezing. CARDIOVASCULAR: Regular. S1 and S2 normal. No appreciable rubs, murmurs or gallops. ABDOMEN: Soft, nontender, and nondistended. There is no rebound, voluntary guarding, or rigidity. : Deferred. No Friedman. EXTREMITIES: Non-edematous and not cyanotic. No clubbing. Good capillary refill. SKIN: No skin breakdown. Vital Signs (last 8hr) Date Time Temp Pulse Resp B/P (MAP) Pulse Ox O2 Delivery O2 Flow Rate FiO2 10/19/24 20:00 99.0 52 20 142/75 92 Room Air 10/19/24 19:37 63 18 N/A Room Air 21 10/19/24 16:00 98.2 59 19 154/72 95 LABS: Laboratory: Test 10/19/24 11:43 Range/Units Whole Blood Glucose 104 70-110 MG/DL Current Medications Medications (Trade) Dose Ordered Sig/Edgar Route PRN Reason Start Time Stop Time Status Last Admin Dose Admin Acetaminophen (TYLenol 500MG TAB) 500 mg Q6H PRN PO MILD PAIN (1-3) 10/11/24 12:30 11/10/24 12:29 10/15/24 10:40 500 MG Acetaminophen (TYLenol 650MG SUPPOSITORY) 650 mg Q6H PRN RC MILD PAIN (1-3) 10/14/24 23:30 11/13/24 23:29 10/16/24 22:27 650 MG Albuterol Sulfate (Proventil 0.083% 2.5mg/3ml) 2.5MG Q6H PRN IH SHORTNESS OF BREATH 10/11/24 12:30 11/10/24 12:29 10/16/24 07:27 2.5 MG Artificial Tears (Artificial Tears) 2 DROP OU PRN DRY EYES Q1H PRN OU DRY EYES 10/15/24 11:00 11/14/24 10:59 Brimonidine Tartrate (Alphagan P) 1 DROP BID OP 10/12/24 21:00 11/11/24 20:59 10/19/24 21:16 1 ML Carbidopa/Levodopa (Sinemet 25-100 Tab) 1 each DAILY PO 10/13/24 09:00 10/15/24 10:52 DC 10/15/24 10:14 1 EACH Ceftriaxone Sodium (Rocephin 2gm Inj) 2 gm Q24H IVPB 10/14/24 12:30 10/17/24 12:41 DC 10/17/24 12:17 2 GM Dextrose/Sodium Chloride 1,000 ml @ 80 mls/hr [id number] IV 10/16/24 19:30 11/15/24 19:29 10/19/24 21:15 80 MLS/HR Famotidine (Pepcid 20mg Vial) 20 mg BID IV 10/11/24 21:00 11/10/24 20:59 10/19/24 21:16 20 MG Haloperidol (Haldol) 1 mg Q1H PRN PO DIRECTED 10/15/24 11:00 11/14/24 10:59 Home Med (Home Medication) (Timolol Maleate 1 DROP) BID OP 10/12/24 21:00 11/11/24 20:59 10/19/24 21:17 1 DROP Home Med (Home Medication) Entacapone 200 MG TID PO 10/12/24 14:00 10/15/24 10:52 DC 10/15/24 10:41 1 TAB Home Med (Home Medication) MELATONIN 3MG DAILY PO 10/13/24 09:00 10/13/24 11:17 DC Home Med (Home Medication) MELATONIN 3MG HS PO 10/13/24 21:00 10/15/24 10:52 DC 10/14/24 19:58 1 EACH Home Med (Home Medication) Rivastigmine 4.6MG/24H PATCH DAILY TD 10/13/24 09:00 11/12/24 08:59 10/19/24 08:59 1 EACH Home Med (Home Medication) TAKE ONE HALF TABLET... HS PO 10/13/24 21:00 10/15/24 10:52 DC 10/14/24 19:59 0.5 EACH Latanoprost (Xalatan) 1 DROP HS OP 10/12/24 21:00 11/11/24 20:59 10/19/24 21:16 1 DROP Lorazepam (AtiVAN) 1 mg Q4H PRN IVP DIRECTED 10/15/24 11:00 10/22/24 10:59 10/17/24 12:18 1 MG Magnesium Sulfate 50 ml @ 0 mls/hr PROTOCOL PRN IV low mag level 10/12/24 09:30 11/11/24 09:29 Melatonin (Melatonin) 5 mg HS PO 10/13/24 21:00 10/13/24 13:03 DC Metoclopramide HCl (regLAN 10MG IV) 5 mg TIDAC IVP 10/15/24 17:00 11/14/24 16:59 10/19/24 06:35 5 MG Morphine Sulfate (morPHINE 2MG SYG) 2 mg Q2H PRN IVP SEVERE PAIN (7-10) 10/15/24 16:30 10/22/24 16:29 10/16/24 15:59 2 MG Ondansetron HCl (zoFRAN 4MG TABLET) 4 mg Q8H PRN PO NAUSEA/VOMITING 10/15/24 11:00 11/14/24 10:59 Pharmacy Profile Note (Pharmacy Communication) 1 each ONCE MISC 10/15/24 16:30 10/15/24 16:33 DC Piperacillin Sod/ Tazobactam Sod (Zosyn 3.375gm+NS 50ml) 3.375 gm Q8H IV 10/17/24 13:00 10/17/24 14:25 DC 10/17/24 13:30 3.375 GM Piperacillin Sod/ Tazobactam Sod (Zosyn 3.375gm+NS 50ml) 3.375 gm Q8H IVPB 10/19/24 21:00 10/26/24 21:00 10/19/24 21:16 3.375 GM Piperacillin Sod/ Tazobactam Sod (Zosyn 3.375gm+NS 50ml) 3.375 gm Q8H IVPB 10/11/24 13:00 10/14/24 12:04 DC 10/14/24 05:11 3.375 GM Piperacillin Sod/ Tazobactam Sod (Zosyn 3.375gm+NS 50ml) 3.375 gm [id number] IV 10/14/24 21:00 10/14/24 16:08 DC Potassium Chloride 100 ml @ 100 mls/hr AD PRN IV POTASSIUM PROTOCOL 10/12/24 09:30 11/11/24 09:29 Potassium Chloride (K-Dur/Klor-Con 20meq) 20 meq AD PRN PO POTASSIUM PROTOCOL 10/12/24 09:30 11/11/24 09:29 Potassium Chloride (KCl 10% Elixir 20meq/15ml) 20 meq AD PRN PO POTASSIUM PROTOCOL 10/12/24 09:30 11/11/24 09:29 10/14/24 09:23 20 MEQ Scopolamine HBr (Transderm-Scop) 1 patch Q72H TD 10/15/24 11:00 11/14/24 10:59 10/18/24 09:45 1 PATCH Simvastatin (zoCOR) 40 mg HS PO 10/12/24 21:00 10/13/24 13:11 DC Sodium Chloride 1,000 ml @ 80 mls/hr [id number] IV 10/11/24 12:30 11/10/24 12:29 10/16/24 12:43 80 MLS/HR Sodium Chloride (NS 50ml) 50 ml AD IV 10/19/24 21:00 10/26/24 21:00 Sodium Chloride (NS 50ml) 50 ml AD IV 10/11/24 13:00 10/11/24 12:35 DC Tamsulosin HCl (FloMAX) 0.4 mg DAILY PO 10/13/24 09:00 10/15/24 10:52 DC 10/15/24 10:14 0.4 MG Vancomycin HCl 250 ml @ 125 mls/hr Q12H IV 10/17/24 06:00 10/17/24 14:25 DC 10/17/24 05:17 125 MLS/HR Vancomycin HCl (Vancomycin Protocol) 1 each AD IV 10/16/24 21:00 10/17/24 14:25 DC DIAGNOSTICS / RADIOLOGY: [ ] ASSESSMENT: Bacteremia gram negative E coli POA Metabolic encephalopathy POA Suspecting sepsis secondary to UTI POA Orophargeal dysphasia POA: Acute respiratory failure with hypoxia requiring oxygen supplemental non- rebreather POA improved Ground Fall unwitnessed POA acute Rhabdomyolysis POA Possible URI with associated sputum production vs Aspiration Pneumonia UTI Gram negative e coli POA chronic problems: Lewy body dementia Hyperlipidemia Debility Diabetes mellitus type 2 PLAN: Hospice VARUN SALAZAR MD Oct 19, 2024 21:34
--- NOTE | 2024-10-19 22:20 | NUR ---
ORAL CARE: PT HAD COPIOUS AMOUNTS OF DRY AND WET THICK YELLOW PHLEGM STUCK AROUND ORAL CAVITY. ORAL CARE AND SUCTIONING DONE AT THIS TIME. PT HAS ADVANCED DEMENTIA AND IS NOT ABLE TO FOLLOW COMMANDS. SEVERAL ATTEMPTS MADE TO INSERT NGT BUT TUBE KEPT COILING AROUND MOUTH. OLIVIA, CHARGE NURSE ALSO ATTEMPTED TO INSERT NGT BUT WAS UNSUCCESSFUL.
[2024-10-20] VITALS (9 sets, daily range): BP systolic 132–166; BP diastolic 45–91; PULSE 53–89; RESP 16–20; TEMP 98.3–99.4; O2SAT 92–98
[2024-10-20 06:13] LABS: BASOPHILS # (AUTO) 0.02 K/uL (0.00-0.20); BASOPHILS % (AUTO) 0.3 % (0.0-5.0); EOSINOPHILS # (AUTO) 0.05 K/uL (0.00-0.70); EOSINOPHILS % (AUTO) 0.6 % (0.0-8.0); HEMATOCRIT 41.5 % (42-54); IMMATURE GRANULOCYTE ABSOLUTE 0.04 K/uL (0-1); LYMPHOCYTES # (AUTO) 1.2 K/uL (1.0-4.8); LYMPHOCYTES % (AUTO) 14.4 % (21.0-51.0); MEAN CORPUSCULAR HEMOGLOBIN 31.7 pg (27.0-33.0); MEAN CORPUSCULAR HGB CONC 34.9 g/dL (32.0-36.0); MEAN CORPUSCULAR VOLUME 90.6 fL (79-99); MONOCYTES # (AUTO) 0.5 K/uL (0.1-1.0); MONOCYTES % (AUTO) 6.7 % (3.0-13.0); NEUTROPHILS # (AUTO) 6.2 K/uL (1.8-7.7); NEUTROPHILS % (AUTO) 77.5 % (40.0-77.0); PLATELET COUNT (AUTO) 264 K/uL (130-400); RED BLOOD CELL COUNT(AUTO) 4.58 MIL/uL (4.50-6.20); RED CELL DISTRIBUTION WIDTH 13.6 % (11.0-15.5)
[2024-10-20 06:27] LABS: CREATININE 0.7 mg/dL (0.5-1.3); MAGNESIUM 1.8 mg/dL (1.80-2.40); POTASSIUM 3.2 mmol/L (3.5-5.1)
--- NOTE | 2024-10-20 09:08 | NUR ---
Dr Willard not available Sw spoke Dr Willard, he is not in town and will return next week
[2024-10-20] MEDS: ZOSYN 3.375GM +NS 50ML IVPB SCH (09:25)
--- NOTE | 2024-10-20 11:02 | NUR ---
SS f/u Sw left message for son Melanie, no answer for son Gonzalez. Sw spoke to pt's sister Barb who states pt has no MPOA but believes pt completed Living Will for his wishes. Sister to try and locate copy and provide. Sw educated on Surrogate Decision Maker Law and explained Melanie and Gonzalez must be in agreement of treatment and dcp. Discussed family's understanding that [facility] with hospice was dcp, once arrangements were made and once pt had medical clearance for transfer. Per sister, family understood, that care would continue until discharge. Family wants test done and recommendation given regarding PEG placement for pt. Sister states family feels that if PEG is not an option, family would be accepting and would move forward with hospice. If there is an option for PEG, family would need to discuss and come to an agreement. Discussed Sw seeking [facility] auth for WOH with hospice, and advised sister that we continue with process, and if family changes their mind, we can cancel that dcp. Educated sister on private care homes since per sister pt is over income for termite technician placement Medicaid. Sister to talk to nephews and have them contact [facility]. Nurse Now, CM, CMD updated Martha at [facility] informed of above
--- NOTE | 2024-10-20 14:00 | NUR ---
DR BOND SPOKE WITH PATIENTS SISTER ,SISTER STATES SHE HAS BEEN SPEAKING WITH THE PATIENTS SONS REGARDING HOSPICE CARE .
[2024-10-20] MEDS: HEParin 5,000 UNIT VIAL SQ SCH (14:33)
--- NOTE | 2024-10-20 16:45 | NUR ---
BEDSIDE SWALLOW EVAL COMPLETED. Pt presented with +s/s of aspiration of delayed swallows and change in vocal quality. Pt not safe for oral intake at this time. Recommend NPO, correction alternate means of nutrition/hydration and MBSS to determine if safe for any pleasure feedings. However, if patient is going home with hospice, he can be on comfort measures as tolerated. MOTORIZED SQUAD LIEUTENANT reviewed results and recommendations with patient and nurse Eloy. No family present at time of visit. MOTORIZED SQUAD LIEUTENANT educated patient/nurse on risks and consequences of aspirations. Speech therapy will follow up tomorrow to coordinate with nurse on patient/family decision. All questions answered. Addendum: 10/20/[address] [facility] Amended: Links added.
--- NOTE | 2024-10-20 17:44 | PN ---
[facility] PROGRESS NOTE Date of Service: Oct 20, 2024 Time of Service: 17:42 SUBJECTIVE: [ ] This is a 74-year-old male that was three 2024 presents in ER with altered radiation admit to status and ground level fall and found to have severe sepsis and UTI. Tele neuro was done suspecting encephalopathy due to infection over acute ischemic stroke patient has a history of Lewy body progression. Patient also appear hypoxia was placed on non-rebreather on admission he is currently on nasal cannula4 L. Family apparently do not Wanna have aggressive measures hospice was discussed with patient family per meteorology professor's. Patient was seen in ED patient apparently had a fall in ED unwitnessed he reports of right elbow pain in reports he bumps his head we will get a CT head and x-ray of right elbow. Patient has underlying Lewy dementia. He is high- risk for falls therefore one-to-one sitter we will be applied to his care. No family at bedside. Patient was able to answer all my questions. And follow commands 10/13/24 patient is seen patient is awake family at bedside son reports this is his norm mentation there are requesting SNF: We will wait for ID recommendations repeat cultures so far negative blood cultures on admission E coli. We will continue with broad-spectrum antibiotics. 10/14/2024. Patient was seen and examined patient appears fragile and weak. Patient was evaluated by speech and given to patient signs of aspiration. Cough during administration of whole pills. Bedside swallow eval positive for aspiration. Recommend mechanical soft chopped solids with nectar thick liquids. home worker spoke with family in regards DNR waiting for family to decide. 1300 the patient family proceed with DNR STATUS. home health care social worker for hospice 10/15/24 patient appears fragile and weak. Patient with NG tube unable to administer medication patient has reflux. Patient continues to gargle head of the bed at 45 at all times. Patient is DNR status waiting [facility]. All questions addressed. 10/16/24 [facility] for [facility] family requested [facility] home in [facility] possible on Thursday. Patient is DNR status. Primary nurse reports patient requires oral suctioning. Head of the bed at 45 at all times. No family at bedside 10/17 patient was seen by nurse practitioner and physician during rounding in room 305. Patient is pending hospice acceptance at this moment. We will continue to monitor patient in the meantime. We will not be ordering any labs. Once patient accepted we will remove the NG tube and pairs patient on Ativan PO outpatient. 10/18/24 patient was seen and examined. Case discussed with RN patient is pending hospice acceptance 10/19/24 patient was seen and examined. Case discussed with RN . Per family dinner service specialist does not want hospice. They want treatment/feeding tube. necessary consults have been made. ID contacted for antibiotic recommendations 10/19/24 patient was seen and examined. Case discussed with RN /care discussed with patients sister by the bed side. She conveyed that family wants hospice but while he is here to continue fluid and antibiotics. They understand prognosis is poor and will go with hospice REVIEW OF SYSTEMS ROS is limited since patient is unable to participate in conversation PHYSICAL EXAM GENERAL APPEARANCE: Patient appears lethargic at bedside. Moans when asked about his name NEUROLOGICAL: Patient does not follow commands for neurological exam. Patient has tremors in the upper extremity HEENT: Face is symmetric. Pupils are equal and reactive. Extraocular movements are intact. NECK: Supple. No JVD. No thyromegaly. No submental, submandibular, pre- /postauricular, occipital or supraclavicular lymphadenopathy. CHEST: Normal chest expansion. No Telemetry. LUNGS: Absence of any rales, rhonchi or any wheezing. CARDIOVASCULAR: Regular. S1 and S2 normal. No appreciable rubs, murmurs or gallops. ABDOMEN: Soft, nontender, and nondistended. There is no rebound, voluntary guarding, or rigidity. : Deferred. No Friedman. EXTREMITIES: Non-edematous and not cyanotic. No clubbing. Good capillary refill. SKIN: No skin breakdown. Vital Signs (last 8hr) Date Time Temp Pulse Resp B/P (MAP) Pulse Ox O2 Delivery O2 Flow Rate FiO2 10/20/24 16:00 99.0 57 16 166/89 92 Nasal Cannula 10/20/24 12:00 98.4 53 16 157/88 99 Room Air LABS: Laboratory: Test 10/20/24 06:05 10/19/24 11:43 Range/Units White Blood Count 8.0 4.8-10.8 K/uL Red Blood Count 4.58 4.50-6.20 MIL/uL Hemoglobin 14.5 14.0-18.0 g/dL Hematocrit 41.5 L 42-54 % Mean Corpuscular Volume 90.6 79-99 fL Mean Corpuscular Hemoglobin 31.7 27.0-33.0 pg Mean Corpuscular Hemoglobin Concent 34.9 32.0-36.0 g/dL Red Cell Distribution Width 13.6 11.0-15.5 % Platelet Count 264 130-400 K/uL Mean Platelet Volume 9.3 7.5-10.5 fL Immature Granulocyte % (Auto) 0.5 0-1 % Neutrophils (%) (Auto) 77.5 H 40.0-77.0 % Lymphocytes (%) (Auto) 14.4 L 21.0-51.0 % Monocytes (%) (Auto) 6.7 3.0-13.0 % Eosinophils (%) (Auto) 0.6 0.0-8.0 % Basophils (%) (Auto) 0.3 0.0-5.0 % Neutrophils # (Auto) 6.2 1.8-7.7 K/uL Lymphocytes # (Auto) 1.2 1.0-4.8 K/uL Monocytes # (Auto) 0.5 0.1-1.0 K/uL Eosinophils # (Auto) 0.05 0.00-0.70 K/uL Basophils # (Auto) 0.02 0.00-0.20 K/uL Absolute Immature Granulocyte (auto 0.04 0-1 K/uL Nucleated Red Blood Cells 0.0 0.0-0.19 % Sodium Level 138 136-145 mmol/L Potassium Level 3.2 L 3.5-5.1 mmol/L Chloride Level 104 101-111 mmol/L Carbon Dioxide Level 30 21-32 mmol/L Blood Urea Nitrogen 13 7-18 mg/dL Creatinine 0.7 0.5-1.3 mg/dL Glomerular Filtration Rate Calc 96 >90 mL/min Random Glucose 139 H 70-105 mg/dL Total Calcium 7.9 L 8.5-10.1 mg/dL Magnesium Level 1.80 1.80-2.40 mg/dL Whole Blood Glucose 104 70-110 MG/DL Current Medications Medications (Trade) Dose Ordered Sig/Edgar Route PRN Reason Start Time Stop Time Status Last Admin Dose Admin Acetaminophen (TYLenol 500MG TAB) 500 mg Q6H PRN PO MILD PAIN (1-3) 10/11/24 12:30 11/10/24 12:29 10/15/24 10:40 500 MG Acetaminophen (TYLenol 650MG SUPPOSITORY) 650 mg Q6H PRN RC MILD PAIN (1-3) 10/14/24 23:30 11/13/24 23:29 10/16/24 22:27 650 MG Albuterol Sulfate (Proventil 0.083% 2.5mg/3ml) 2.5MG Q6H PRN IH SHORTNESS OF BREATH 10/11/24 12:30 11/10/24 12:29 10/16/24 07:27 2.5 MG Artificial Tears (Artificial Tears) 2 DROP OU PRN DRY EYES Q1H PRN OU DRY EYES 10/15/24 11:00 11/14/24 10:59 Brimonidine Tartrate (Alphagan P) 1 DROP BID OP 10/12/24 21:00 11/11/24 20:59 10/20/24 09:21 1 ML Carbidopa/Levodopa (Sinemet 25-100 Tab) 1 each DAILY PO 10/13/24 09:00 10/15/24 10:52 DC 10/15/24 10:14 1 EACH Ceftriaxone Sodium (Rocephin 2gm Inj) 2 gm Q24H IVPB 10/14/24 12:30 10/17/24 12:41 DC 10/17/24 12:17 2 GM Dextrose/Sodium Chloride 1,000 ml @ 80 mls/hr [id number] IV 10/16/24 19:30 11/15/24 19:29 10/20/24 09:20 80 MLS/HR Famotidine (Pepcid 20mg Vial) 20 mg BID IV 10/11/24 21:00 11/10/24 20:59 10/20/24 09:20 20 MG Haloperidol (Haldol) 1 mg Q1H PRN PO DIRECTED 10/15/24 11:00 11/14/24 10:59 Heparin Sodium (Porcine) (HEParin 5,000 UNIT VIAL) 5,000 unit Q12H SQ 10/20/24 12:30 11/19/24 12:29 10/20/24 14:33 5,000 UNIT Home Med (Home Medication) (Timolol Maleate 1 DROP) BID OP 10/12/24 21:00 11/11/24 20:59 10/20/24 09:22 1 DROP Home Med (Home Medication) Entacapone 200 MG TID PO 10/12/24 14:00 10/15/24 10:52 DC 10/15/24 10:41 1 TAB Home Med (Home Medication) MELATONIN 3MG DAILY PO 10/13/24 09:00 10/13/24 11:17 DC Home Med (Home Medication) MELATONIN 3MG HS PO 10/13/24 21:00 10/15/24 10:52 DC 10/14/24 19:58 1 EACH Home Med (Home Medication) Rivastigmine 4.6MG/24H PATCH DAILY TD 10/13/24 09:00 11/12/24 08:59 10/20/24 09:23 1 EACH Home Med (Home Medication) TAKE ONE HALF TABLET... HS PO 10/13/24 21:00 10/15/24 10:52 DC 10/14/24 19:59 0.5 EACH Latanoprost (Xalatan) 1 DROP HS OP 10/12/24 21:00 11/11/24 20:59 10/19/24 21:16 1 DROP Lorazepam (AtiVAN) 1 mg Q4H PRN IVP DIRECTED 10/15/24 11:00 10/22/24 10:59 10/17/24 12:18 1 MG Magnesium Sulfate 50 ml @ 0 mls/hr PROTOCOL PRN IV low mag level 10/12/24 09:30 11/11/24 09:29 Melatonin (Melatonin) 5 mg HS PO 10/13/24 21:00 10/13/24 13:03 DC Metoclopramide HCl (regLAN 10MG IV) 5 mg TIDAC IVP 10/15/24 17:00 11/14/24 16:59 10/20/24 14:34 5 MG Morphine Sulfate (morPHINE 2MG SYG) 2 mg Q2H PRN IVP SEVERE PAIN (7-10) 10/15/24 16:30 10/22/24 16:29 10/16/24 15:59 2 MG Ondansetron HCl (zoFRAN 4MG TABLET) 4 mg Q8H PRN PO NAUSEA/VOMITING 10/15/24 11:00 11/14/24 10:59 Pharmacy Profile Note (Pharmacy Communication) 1 each ONCE MISC 10/15/24 16:30 10/15/24 16:33 DC Piperacillin Sod/ Tazobactam Sod (Zosyn 3.375gm+NS 50ml) 3.375 gm Q8H IV 10/17/24 13:00 10/17/24 14:25 DC 10/17/24 13:30 3.375 GM Piperacillin Sod/ Tazobactam Sod (Zosyn 3.375gm+NS 50ml) 3.375 gm Q8H IVPB 10/19/24 21:00 10/20/24 09:11 DC 10/19/24 21:16 3.375 GM Piperacillin Sod/ Tazobactam Sod (Zosyn 3.375gm+NS 50ml) 3.375 gm Q8H IVPB 10/20/24 09:30 10/30/24 09:29 10/20/24 09:25 3.375 GM Piperacillin Sod/ Tazobactam Sod (Zosyn 3.375gm+NS 50ml) 3.375 gm Q8H IVPB 10/11/24 13:00 10/14/24 12:04 DC 10/14/24 05:11 3.375 GM Piperacillin Sod/ Tazobactam Sod (Zosyn 3.375gm+NS 50ml) 3.375 gm ZOSY8 IV 10/14/24 21:00 10/14/24 16:08 DC Potassium Chloride 100 ml @ 100 mls/hr AD PRN IV POTASSIUM PROTOCOL 10/12/24 09:30 11/11/24 09:29 Potassium Chloride (K-Dur/Klor-Con 20meq) 20 meq AD PRN PO POTASSIUM PROTOCOL 10/12/24 09:30 11/11/24 09:29 Potassium Chloride (KCl 10% Elixir 20meq/15ml) 20 meq AD PRN PO POTASSIUM PROTOCOL 10/12/24 09:30 11/11/24 09:29 10/14/24 09:23 20 MEQ Scopolamine HBr (Transderm-Scop) 1 patch Q72H TD 10/15/24 11:00 11/14/24 10:59 10/18/24 09:45 1 PATCH Simvastatin (zoCOR) 40 mg HS PO 10/12/24 21:00 10/13/24 13:11 DC Sodium Chloride 1,000 ml @ 80 mls/hr [id number] IV 10/11/24 12:30 11/10/24 12:29 10/16/24 12:43 80 MLS/HR Sodium Chloride (NS 50ml) 50 ml AD IV 10/19/24 21:00 10/20/24 09:12 DC Sodium Chloride (NS 50ml) 50 ml AD IV 10/11/24 13:00 10/11/24 12:35 DC Tamsulosin HCl (FloMAX) 0.4 mg DAILY PO 10/13/24 09:00 10/15/24 10:52 DC 10/15/24 10:14 0.4 MG Vancomycin HCl 250 ml @ 125 mls/hr Q12H IV 10/17/24 06:00 10/17/24 14:25 DC 10/17/24 05:17 125 MLS/HR Vancomycin HCl (Vancomycin Protocol) 1 each AD IV 10/16/24 21:00 10/17/24 14:25 DC DIAGNOSTICS / RADIOLOGY: [ ] ASSESSMENT: Bacteremia gram negative E coli POA Metabolic encephalopathy POA Suspecting sepsis secondary to UTI POA Orophargeal dysphasia POA: Acute respiratory failure with hypoxia requiring oxygen supplemental non- rebreather POA improved Ground Fall unwitnessed POA acute Rhabdomyolysis POA Possible URI with associated sputum production vs Aspiration Pneumonia UTI Gram negative e coli POA chronic problems: Lewy body dementia Hyperlipidemia Debility Diabetes mellitus type 2 PLAN: Hospice VARUN SALAZAR MD Oct 20, 2024 17:44
[2024-10-20] MEDS: PoTASSium chloRIDE 20MEQ/100ML 100 ML IV ONE (18:11)
--- NOTE | 2024-10-20 20:45 | PN ---
INFECTIOUS DISEASE PROGRESS NOTE Date of Service: Oct 17, 2024 SUBJECTIVE: This is a 74-year-old male patient who was seen and examined at bedside in room 303. Patient continues lethargic and not following commands. Ceftriaxone was discontinued and patient was started on Vancomycin and Zosyn due to patient still having fevers of 102.6 last night. Per nursing report however patient's son have decided for patient to go under hospice services and pending [facility] approval. Therefore the antibiotics can be discontinue. We will sign off. Reconsult if needed. PHYSICAL EXAM EYES: Anicteric. Pupils equal and reactive. HENT: No oral thrush seen, moist Oral mucosa. NECK: Supple, no JVD or thyromegaly. LUNGS: Good air entry. No rales, no rhonchi. CARDIOVASCULAR: S1, S2 regular. No murmur heard. ABDOMEN: Soft, non tender, bowel sounds present, no organomegaly CENTRAL NERVOUS SYSTEM: Lethargic. Unable to answer questions. SKIN: No rashes, no swelling. LYMPHATICS: No peripheral lymphadenopathy. MUSCULOSKELETAL: No joint swelling, erythema or tenderness. EXTREMITIES: No cyanosis or clubbing. Weakness. BACK: No deformity, no pressure ulcer. GENITOURINARY: No dysuria or hematuria. Vital Sign (Last 12 Hours) 10/20/24 10/20/24 10/20/24 10/20/24 12:00 16:00 16:45 19:42 Temp 98.4 99.0 Pulse 53 57 61 Resp 16 16 18 B/P (MAP) 157/88 166/89 Pulse Ox 99 92 O2 Delivery Room Air Nasal Cannula N/C Nasal Cannula N/A Room Air FiO2 21 Intake & Output (last 24hrs) 10/19/24 10/19/24 10/20/24 15:00 23:00 07:00 Intake Total 1010.0 ml Balance 1010.0 ml LABS: Laboratory: Test 10/20/24 06:05 10/19/24 11:43 Range/Units White Blood Count 8.0 4.8-10.8 K/uL Red Blood Count 4.58 4.50-6.20 MIL/uL Hemoglobin 14.5 14.0-18.0 g/dL Hematocrit 41.5 L 42-54 % Mean Corpuscular Volume 90.6 79-99 fL Mean Corpuscular Hemoglobin 31.7 27.0-33.0 pg Mean Corpuscular Hemoglobin Concent 34.9 32.0-36.0 g/dL Red Cell Distribution Width 13.6 11.0-15.5 % Platelet Count 264 130-400 K/uL Mean Platelet Volume 9.3 7.5-10.5 fL Immature Granulocyte % (Auto) 0.5 0-1 % Neutrophils (%) (Auto) 77.5 H 40.0-77.0 % Lymphocytes (%) (Auto) 14.4 L 21.0-51.0 % Monocytes (%) (Auto) 6.7 3.0-13.0 % Eosinophils (%) (Auto) 0.6 0.0-8.0 % Basophils (%) (Auto) 0.3 0.0-5.0 % Neutrophils # (Auto) 6.2 1.8-7.7 K/uL Lymphocytes # (Auto) 1.2 1.0-4.8 K/uL Monocytes # (Auto) 0.5 0.1-1.0 K/uL Eosinophils # (Auto) 0.05 0.00-0.70 K/uL Basophils # (Auto) 0.02 0.00-0.20 K/uL Absolute Immature Granulocyte (auto 0.04 0-1 K/uL Nucleated Red Blood Cells 0.0 0.0-0.19 % Sodium Level 138 136-145 mmol/L Potassium Level 3.2 L 3.5-5.1 mmol/L Chloride Level 104 101-111 mmol/L Carbon Dioxide Level 30 21-32 mmol/L Blood Urea Nitrogen 13 7-18 mg/dL Creatinine 0.7 0.5-1.3 mg/dL Glomerular Filtration Rate Calc 96 >90 mL/min Random Glucose 139 H 70-105 mg/dL Total Calcium 7.9 L 8.5-10.1 mg/dL Magnesium Level 1.80 1.80-2.40 mg/dL Whole Blood Glucose 104 70-110 MG/DL ASSESSMENT: E Coli Bacteremia. Urinary tract infection with E coli. Leukocytosis. Rhabdomyolysis. Status post mechanical fall. Dementia. Debility. PLAN: Discontinued Ceftriaxone and started patient on Vancomycin and Zosyn. However, per nursing report patient's son have decided for hospice services and pending [facility] approval. Continue Aspiration precautions. We will sign off at this time. Reconsult ID if needed. This case was reviewed and discussed with my supervising physician and the above assessment and plan was formulated and agreed upon. ATTESTATION BY PHYSICIAN I have seen and examined the patient. I reviewed the documentation, medical decision making, and treatment plan as noted by the mid-level provider above. I agree with the findings and plan of care. BRYON SHELTON MD, MIRTA L [facility] Oct 20, 2024 20:45
--- NOTE | 2024-10-20 20:54 | PN ---
INFECTIOUS DISEASE PROGRESS NOTE Date of Service: Oct 20, 2024 SUBJECTIVE: This is a 74-year-old male patient who was seen and examined at bedside in room 203. Patient is awake but not following commands. Per report patient's son not ready for hospice services yet and therefore the Zosyn IV has been resumed. Patient remains afebrile, temperature is 98.4. Patient is not safe for a bedside swallow evaluation. Patient will need a PEG tube placement. We will continue to follow patient's care. PHYSICAL EXAM EYES: Anicteric. Pupils equal and reactive. HENT: No oral thrush seen, moist Oral mucosa. NECK: Supple, no JVD or thyromegaly. LUNGS: Good air entry. No rales, no rhonchi. CARDIOVASCULAR: S1, S2 regular. No murmur heard. ABDOMEN: Soft, non tender, bowel sounds present, no organomegaly CENTRAL NERVOUS SYSTEM: Lethargic. Unable to answer questions. SKIN: No rashes, no swelling. LYMPHATICS: No peripheral lymphadenopathy. MUSCULOSKELETAL: No joint swelling, erythema or tenderness. EXTREMITIES: No cyanosis or clubbing. Weakness. BACK: No deformity, no pressure ulcer. GENITOURINARY: No dysuria or hematuria. Vital Sign (Last 12 Hours) 10/20/24 10/20/24 10/20/24 10/20/24 12:00 16:00 16:45 19:42 Temp 98.4 99.0 Pulse 53 57 61 Resp 16 16 18 B/P (MAP) 157/88 166/89 Pulse Ox 99 92 O2 Delivery Room Air Nasal Cannula N/C Nasal Cannula N/A Room Air FiO2 21 Intake & Output (last 24hrs) 10/19/24 10/19/24 10/20/24 15:00 23:00 07:00 Intake Total 1010.0 ml Balance 1010.0 ml LABS: Laboratory: Test 10/20/24 06:05 10/19/24 11:43 Range/Units White Blood Count 8.0 4.8-10.8 K/uL Red Blood Count 4.58 4.50-6.20 MIL/uL Hemoglobin 14.5 14.0-18.0 g/dL Hematocrit 41.5 L 42-54 % Mean Corpuscular Volume 90.6 79-99 fL Mean Corpuscular Hemoglobin 31.7 27.0-33.0 pg Mean Corpuscular Hemoglobin Concent 34.9 32.0-36.0 g/dL Red Cell Distribution Width 13.6 11.0-15.5 % Platelet Count 264 130-400 K/uL Mean Platelet Volume 9.3 7.5-10.5 fL Immature Granulocyte % (Auto) 0.5 0-1 % Neutrophils (%) (Auto) 77.5 H 40.0-77.0 % Lymphocytes (%) (Auto) 14.4 L 21.0-51.0 % Monocytes (%) (Auto) 6.7 3.0-13.0 % Eosinophils (%) (Auto) 0.6 0.0-8.0 % Basophils (%) (Auto) 0.3 0.0-5.0 % Neutrophils # (Auto) 6.2 1.8-7.7 K/uL Lymphocytes # (Auto) 1.2 1.0-4.8 K/uL Monocytes # (Auto) 0.5 0.1-1.0 K/uL Eosinophils # (Auto) 0.05 0.00-0.70 K/uL Basophils # (Auto) 0.02 0.00-0.20 K/uL Absolute Immature Granulocyte (auto 0.04 0-1 K/uL Nucleated Red Blood Cells 0.0 0.0-0.19 % Sodium Level 138 136-145 mmol/L Potassium Level 3.2 L 3.5-5.1 mmol/L Chloride Level 104 101-111 mmol/L Carbon Dioxide Level 30 21-32 mmol/L Blood Urea Nitrogen 13 7-18 mg/dL Creatinine 0.7 0.5-1.3 mg/dL Glomerular Filtration Rate Calc 96 >90 mL/min Random Glucose 139 H 70-105 mg/dL Total Calcium 7.9 L 8.5-10.1 mg/dL Magnesium Level 1.80 1.80-2.40 mg/dL Whole Blood Glucose 104 70-110 MG/DL ASSESSMENT: E Coli Bacteremia. Urinary tract infection with E coli. Leukocytosis. Rhabdomyolysis. Status post mechanical fall. Dementia. Debility. PLAN: Zosyn IV has been resumed. Continue GI prophylaxis. Continue Aspiration precautions. Patient will need a PEG tube placement. We will monitor electrolytes. This case was reviewed and discussed with my supervising physician and the above assessment and plan was formulated and agreed upon. ATTESTATION BY PHYSICIAN I have seen and examined the patient. I reviewed the documentation, medical decision making, and treatment plan as noted by the mid-level provider above. I agree with the findings and plan of care. BRYON SHELTON MD, MIRTA L [facility] Oct 20, 2024 20:54
[2024-10-21] VITALS (12 sets, daily range): BP systolic 109–172; BP diastolic 57–86; PULSE 51–70; RESP 18–20; TEMP 97.6–98.8; O2SAT 92–98
[2024-10-21] MEDS: hydrALAZine 20MG/ML VIAL IV PRN (11:37)
--- NOTE | 2024-10-21 14:43 | NUR ---
DCP: MARGARET OF [facility] WITH [facility] [phone] Per Judith, LEONARD recd [facility] auth for pt. WOH pending signatures from [facility] on 1x contract. Ivan spoke to Buhler [phone], pt's sister. Per sister, after eval and conversation with , family decided to move forward with NH with hospice and no PEG placement. [facility] staff was made aware yesterday and family was waiting for VA auth. Ivan spoke o Johan Admin for [facility] who states they have completed their part and to his knowledge are approved. Ivan asked Johan to please verify with [facility] they are approved so we can get DME delivered and pt transferred. Johan to verify and re contact Ivan. Sagrario ELLIS made aware of above.
--- NOTE | 2024-10-21 15:49 | NUR ---
[facility]X CONTRACT Sw recd call from Judith, [facility]x contract with [facility] has been approved by [facility]. Now pending DME to be delivered today, and pt will be discharged in am. Pt's sister Barb made aware of dcp. Sagrario ELLIS made aware of dcp.
--- NOTE | 2024-10-21 20:43 | PN ---
[facility] PROGRESS NOTE Date of Service: Oct 21, 2024 Time of Service: 20:41 SUBJECTIVE: [ ] This is a 74-year-old male that was three 2024 presents in ER with altered radiation admit to status and ground level fall and found to have severe sepsis and UTI. Tele neuro was done suspecting encephalopathy due to infection over acute ischemic stroke patient has a history of Lewy body progression. Patient also appear hypoxia was placed on non-rebreather on admission he is currently on nasal cannula4 L. Family apparently do not Wanna have aggressive measures hospice was discussed with patient family per workforce management coordinator's. Patient was seen in ED patient apparently had a fall in ED unwitnessed he reports of right elbow pain in reports he bumps his head we will get a CT head and x-ray of right elbow. Patient has underlying Lewy dementia. He is high- risk for falls therefore one-to-one sitter we will be applied to his care. No family at bedside. Patient was able to answer all my questions. And follow commands 10/13/24 patient is seen patient is awake family at bedside son reports this is his norm mentation there are requesting SNF: We will wait for ID recommendations repeat cultures so far negative blood cultures on admission E coli. We will continue with broad-spectrum antibiotics. 10/14/2024. Patient was seen and examined patient appears fragile and weak. Patient was evaluated by speech and given to patient signs of aspiration. Cough during administration of whole pills. Bedside swallow eval positive for aspiration. Recommend mechanical soft chopped solids with nectar thick liquids. before and after school daycare worker spoke with family in regards DNR waiting for family to decide. 1300 the patient family proceed with DNR STATUS. social insurance specialist for hospice 10/15/24 patient appears fragile and weak. Patient with NG tube unable to administer medication patient has reflux. Patient continues to gargle head of the bed at 45 at all times. Patient is DNR status [facility]. All questions addressed. 10/16/24 waiting for [facility] family requested [facility] home in [facility] possible on Thursday. Patient is DNR status. Primary nurse reports patient requires oral suctioning. Head of the bed at 45 at all times. No family at bedside 10/17 patient was seen by nurse practitioner and physician during rounding in room 305. Patient is pending hospice acceptance at this moment. We will continue to monitor patient in the meantime. We will not be ordering any labs. Once patient accepted we will remove the NG tube and pairs patient on Ativan PO outpatient. 10/18/24 patient was seen and examined. Case discussed with RN patient is pending hospice acceptance 10/19/24 patient was seen and examined. Case discussed with RN . Per family therapist does not want hospice. They want treatment/feeding tube. necessary consults have been made. ID contacted for antibiotic recommendations 10/20/24 patient was seen and examined. Case discussed with RN /care discussed with patients sister by the bed side. She conveyed that family wants hospice but while he is here to continue fluid and antibiotics. They understand prognosis is poor and will go with hospice 10/21/24 patient was seen and examined. Case discussed with RN/no family/awaiting hospice REVIEW OF SYSTEMS ROS is limited since patient is unable to participate in conversation PHYSICAL EXAM GENERAL APPEARANCE: Patient appears lethargic at bedside. Moans when asked about his name NEUROLOGICAL: Patient does not follow commands for neurological exam. Patient has tremors in the upper extremity HEENT: Face is symmetric. Pupils are equal and reactive. Extraocular movements are intact. NECK: Supple. No JVD. No thyromegaly. No submental, submandibular, pre- /postauricular, occipital or supraclavicular lymphadenopathy. CHEST: Normal chest expansion. No Telemetry. LUNGS: Absence of any rales, rhonchi or any wheezing. CARDIOVASCULAR: Regular. S1 and S2 normal. No appreciable rubs, murmurs or gallops. ABDOMEN: Soft, nontender, and nondistended. There is no rebound, voluntary guarding, or rigidity. : Deferred. No Friedman. EXTREMITIES: Non-edematous and not cyanotic. No clubbing. Good capillary refill. SKIN: No skin breakdown. Vital Signs (last 8hr) Date Time Temp Pulse Resp B/P (MAP) Pulse Ox O2 Delivery O2 Flow Rate FiO2 10/21/24 20:00 97.5 67 18 125/62 97 Room Air 10/21/24 19:55 65 18 N/A Room Air 21 10/21/24 15:10 97.5 70 18 109/61 96 Room Air 21 10/21/24 13:06 110/57 LABS: Laboratory: Test 10/20/24 06:05 Range/Units White Blood Count 8.0 4.8-10.8 K/uL Red Blood Count 4.58 4.50-6.20 MIL/uL Hemoglobin 14.5 14.0-18.0 g/dL Hematocrit 41.5 L 42-54 % Mean Corpuscular Volume 90.6 79-99 fL Mean Corpuscular Hemoglobin 31.7 27.0-33.0 pg Mean Corpuscular Hemoglobin Concent 34.9 32.0-36.0 g/dL Red Cell Distribution Width 13.6 11.0-15.5 % Platelet Count 264 130-400 K/uL Mean Platelet Volume 9.3 7.5-10.5 fL Immature Granulocyte % (Auto) 0.5 0-1 % Neutrophils (%) (Auto) 77.5 H 40.0-77.0 % Lymphocytes (%) (Auto) 14.4 L 21.0-51.0 % Monocytes (%) (Auto) 6.7 3.0-13.0 % Eosinophils (%) (Auto) 0.6 0.0-8.0 % Basophils (%) (Auto) 0.3 0.0-5.0 % Neutrophils # (Auto) 6.2 1.8-7.7 K/uL Lymphocytes # (Auto) 1.2 1.0-4.8 K/uL Monocytes # (Auto) 0.5 0.1-1.0 K/uL Eosinophils # (Auto) 0.05 0.00-0.70 K/uL Basophils # (Auto) 0.02 0.00-0.20 K/uL Absolute Immature Granulocyte (auto 0.04 0-1 K/uL Nucleated Red Blood Cells 0.0 0.0-0.19 % Sodium Level 138 136-145 mmol/L Potassium Level 3.2 L 3.5-5.1 mmol/L Chloride Level 104 101-111 mmol/L Carbon Dioxide Level 30 21-32 mmol/L Blood Urea Nitrogen 13 7-18 mg/dL Creatinine 0.7 0.5-1.3 mg/dL Glomerular Filtration Rate Calc 96 >90 mL/min Random Glucose 139 H 70-105 mg/dL Total Calcium 7.9 L 8.5-10.1 mg/dL Magnesium Level 1.80 1.80-2.40 mg/dL Current Medications Medications (Trade) Dose Ordered Sig/Edgar Route PRN Reason Start Time Stop Time Status Last Admin Dose Admin Acetaminophen (TYLenol 500MG TAB) 500 mg Q6H PRN PO MILD PAIN (1-3) 10/11/24 12:30 11/10/24 12:29 10/15/24 10:40 500 MG Acetaminophen (TYLenol 650MG SUPPOSITORY) 650 mg Q6H PRN RC MILD PAIN (1-3) 10/14/24 23:30 11/13/24 23:29 10/16/24 22:27 650 MG Albuterol Sulfate (Proventil 0.083% 2.5mg/3ml) 2.5MG Q6H PRN IH SHORTNESS OF BREATH 10/11/24 12:30 11/10/24 12:29 10/16/24 07:27 2.5 MG Artificial Tears (Artificial Tears) 2 DROP OU PRN DRY EYES Q1H PRN OU DRY EYES 10/15/24 11:00 11/14/24 10:59 Brimonidine Tartrate (Alphagan P) 1 DROP BID OP 10/12/24 21:00 11/11/24 20:59 10/21/24 10:33 1 ML Carbidopa/Levodopa (Sinemet 25-100 Tab) 1 each DAILY PO 10/13/24 09:00 10/15/24 10:52 DC 10/15/24 10:14 1 EACH Ceftriaxone Sodium (Rocephin 2gm Inj) 2 gm Q24H IVPB 10/14/24 12:30 10/17/24 12:41 DC 10/17/24 12:17 2 GM Dextrose/Sodium Chloride 1,000 ml @ 80 mls/hr [id number] IV 10/16/24 19:30 11/15/24 19:29 10/21/24 10:32 80 MLS/HR Famotidine (Pepcid 20mg Vial) 20 mg BID IV 10/11/24 21:00 11/10/24 20:59 10/21/24 10:31 20 MG Haloperidol (Haldol) 1 mg Q1H PRN PO DIRECTED 10/15/24 11:00 11/14/24 10:59 Heparin Sodium (Porcine) (HEParin 5,000 UNIT VIAL) 5,000 unit Q12H SQ 10/20/24 12:30 11/19/24 12:29 10/21/24 11:38 5,000 UNIT Home Med (Home Medication) (Timolol Maleate 1 DROP) BID OP 10/12/24 21:00 11/11/24 20:59 10/21/24 10:32 1 DROP Home Med (Home Medication) Entacapone 200 MG TID PO 10/12/24 14:00 10/15/24 10:52 DC 10/15/24 10:41 1 TAB Home Med (Home Medication) MELATONIN 3MG DAILY PO 10/13/24 09:00 10/13/24 11:17 DC Home Med (Home Medication) MELATONIN 3MG HS PO 10/13/24 21:00 10/15/24 10:52 DC 10/14/24 19:58 1 EACH Home Med (Home Medication) Rivastigmine 4.6MG/24H PATCH DAILY TD 10/13/24 09:00 11/12/24 08:59 10/21/24 10:56 1 EACH Home Med (Home Medication) TAKE ONE HALF TABLET... HS PO 10/13/24 21:00 10/15/24 10:52 DC 10/14/24 19:59 0.5 EACH Hydralazine HCl (APRESOLine 20MG INJ) 10 mg Q6H PRN IV ADMINISTER FOR SBP > 160 10/21/24 11:30 11/20/24 11:29 10/21/24 11:37 10 MG Latanoprost (Xalatan) 1 DROP HS OP 10/12/24 21:00 11/11/24 20:59 10/20/24 21:24 1 DROP Lorazepam (AtiVAN) 1 mg Q4H PRN IVP DIRECTED 10/15/24 11:00 10/22/24 10:59 10/17/24 12:18 1 MG Magnesium Sulfate 50 ml @ 0 mls/hr PROTOCOL PRN IV low mag level 10/12/24 09:30 11/11/24 09:29 Melatonin (Melatonin) 5 mg HS PO 10/13/24 21:00 10/13/24 13:03 DC Metoclopramide HCl (regLAN 10MG IV) 5 mg TIDAC IVP 10/15/24 17:00 11/14/24 16:59 10/21/24 17:52 5 MG Morphine Sulfate (morPHINE 2MG SYG) 2 mg Q2H PRN IVP SEVERE PAIN (7-10) 10/15/24 16:30 10/20/24 19:29 DC 10/16/24 15:59 2 MG Ondansetron HCl (zoFRAN 4MG TABLET) 4 mg Q8H PRN PO NAUSEA/VOMITING 10/15/24 11:00 11/14/24 10:59 Pharmacy Profile Note (Pharmacy Communication) 1 each ONCE MISC 10/15/24 16:30 10/15/24 16:33 DC Piperacillin Sod/ Tazobactam Sod (Zosyn 3.375gm+NS 50ml) 3.375 gm Q8H IV 10/17/24 13:00 10/17/24 14:25 DC 10/17/24 13:30 3.375 GM Piperacillin Sod/ Tazobactam Sod (Zosyn 3.375gm+NS 50ml) 3.375 gm Q8H IVPB 10/19/24 21:00 10/20/24 09:11 DC 10/19/24 21:16 3.375 GM Piperacillin Sod/ Tazobactam Sod (Zosyn 3.375gm+NS 50ml) 3.375 gm Q8H IVPB 10/20/24 09:30 10/30/24 09:29 10/21/24 17:52 3.375 GM Piperacillin Sod/ Tazobactam Sod (Zosyn 3.375gm+NS 50ml) 3.375 gm Q8H IVPB 10/11/24 13:00 10/14/24 12:04 DC 10/14/24 05:11 3.375 GM Piperacillin Sod/ Tazobactam Sod (Zosyn 3.375gm+NS 50ml) 3.375 gm ZOSY8 IV 10/14/24 21:00 10/14/24 16:08 DC Potassium Chloride 100 ml @ 100 mls/hr AD PRN IV POTASSIUM PROTOCOL 10/12/24 09:30 11/11/24 09:29 Potassium Chloride (K-Dur/Klor-Con 20meq) 20 meq AD PRN PO POTASSIUM PROTOCOL 10/12/24 09:30 11/11/24 09:29 Potassium Chloride (KCl 10% Elixir 20meq/15ml) 20 meq AD PRN PO POTASSIUM PROTOCOL 10/12/24 09:30 11/11/24 09:29 10/14/24 09:23 20 MEQ Scopolamine HBr (Transderm-Scop) 1 patch Q72H TD 10/15/24 11:00 11/14/24 10:59 10/21/24 10:30 1 PATCH Simvastatin (zoCOR) 40 mg HS PO 10/12/24 21:00 10/13/24 13:11 DC Sodium Chloride 1,000 ml @ 80 mls/hr [id number] IV 10/11/24 12:30 11/10/24 12:29 10/21/24 17:52 80 MLS/HR Sodium Chloride (NS 50ml) 50 ml AD IV 10/19/24 21:00 10/20/24 09:12 DC Sodium Chloride (NS 50ml) 50 ml AD IV 10/11/24 13:00 10/11/24 12:35 DC Tamsulosin HCl (FloMAX) 0.4 mg DAILY PO 10/13/24 09:00 10/15/24 10:52 DC 10/15/24 10:14 0.4 MG Vancomycin HCl 250 ml @ 125 mls/hr Q12H IV 10/17/24 06:00 10/17/24 14:25 DC 10/17/24 05:17 125 MLS/HR Vancomycin HCl (Vancomycin Protocol) 1 each AD IV 10/16/24 21:00 10/17/24 14:25 DC DIAGNOSTICS / RADIOLOGY: [ ] ASSESSMENT: Bacteremia gram negative E coli POA Metabolic encephalopathy POA Suspecting sepsis secondary to UTI POA Orophargeal dysphasia POA: Acute respiratory failure with hypoxia requiring oxygen supplemental non- rebreather POA improved Ground Fall unwitnessed POA acute Rhabdomyolysis POA Possible URI with associated sputum production vs Aspiration Pneumonia UTI Gram negative e coli POA chronic problems: Lewy body dementia Hyperlipidemia Debility Diabetes mellitus type 2 PLAN: Hospice VARUN SALAZAR MD Oct 21, 2024 20:43
--- NOTE | 2024-10-21 21:51 | PN ---
INFECTIOUS DISEASE FOLLOWUP NOTE DATE OF SERVICE: 10/21/2024 SUBJECTIVE: The patient is seen. No fever, no chills. No nausea, no vomiting. The patient is awake, but confused, bedbound debility. No family at bedside. Remained on antibiotic. PHYSICAL EXAMINATION: VITAL SIGNS: Temperature 98.4. EYES: No icterus. Pupils are equal and reactive. HENT: No oral lesions seen. Moist oral mucosa. NECK: Supple, no JVD or thyromegaly. LUNGS: Good air entry. No rales, no rhonchi. CARDIOVASCULAR: S1, S2 regular. No murmur heard. ABDOMEN: Full, soft. Bowel sound is present. CENTRAL NERVOUS SYSTEM: The patient is awake, but confused ____. SKIN: No rashes, no itchiness. LYMPHATIC: No peripheral lymphadenopathy. BACK: No deformity, no pressure ulcer. ASSESSMENT: A 74-year-old male with multiple problems include: * E. Coli bacteremia and sepsis. * Aspiration pneumonia. * Urinary tract infection. * Parkinson's disease. * Encephalopathy. PLAN: * Continue Zosyn. * Continue Sinemet. * Continue Tylenol. * Continue DVT prophylaxis. * Continue antiemetics. * Continue nutritional support. TID: [id number] RECEIPT: [id number]
[2024-10-22] VITALS (8 sets, daily range): BP systolic 143–162; BP diastolic 68–85; PULSE 50–68; RESP 18–32; TEMP 97.5–98.5; O2SAT 97–100
--- NOTE | 2024-10-22 07:00 | NUR ---
PT is received The patient is received with report from the [facility] shift nurse. This patient is responsive to voice. IV Fluids are infusing by PIV. The bed is in a low position and the veirto lbell is in reach.
--- NOTE | 2024-10-22 11:53 | NUR ---
[facility] Martha from [facility] arrives on the unit to advise that the DME equipment was delivered to [facility].
--- NOTE | 2024-10-22 14:17 | DS ---
Discharge Summary Hospital Course Summary: This is a 74-year-old male that was three 2024 presents in ER with altered radiation admit to status and ground level fall and found to have severe sepsis and UTI. Tele neuro was done suspecting encephalopathy due to infection over acute ischemic stroke patient has a history of Lewy body progression. Patient also appear hypoxia was placed on non-rebreather on admission he is currently on nasal cannula4 L. Family apparently do not Wanna have aggressive measures hospice was discussed with patient family per manager government's. Infectious Disease and pulmonology follow up the patient. Family had detailed discussion with pulmonology and agreed on hospice. Discussed referred to. Family agreed to take him to [facility] to continue with hospice care. They do not want to continue with any aggressive or otherwise caregivers non medical(s): Pulmonology and Infectious Disease Assessment/Plan: ASSESSMENT: Bacteremia gram negative E coli POA Metabolic encephalopathy POA Suspecting sepsis secondary to UTI POA Orophargeal dysphasia POA: Acute respiratory failure with hypoxia requiring oxygen supplemental non-r ebreather POA improved Ground Fall unwitnessed POA acute Rhabdomyolysis POA Possible URI with associated sputum production vs Aspiration Pneumonia UTI Gram negative e coli POA chronic problems: Lewy body dementia Hyperlipidemia Debility Diabetes mellitus type 2 PLAN: Hospice Home Medications: Reported Medications Brimonidine Tartrate (Brimonidine Tartrate) 0.2 % Drops, 1 DROP OP BID, #10 ML 0 Refills 10/12/24 Timolol Maleate (Timolol Maleate) 0.5 % Karina.gel, 1 DROP OP BID, #15 ML 0 Refills 10/12/24 Latanoprost (Latanoprost) 0.005 % Drops, 1 DROP OP HS, ML 0 Refills 10/12/24 Entacapone (Entacapone) 200 Mg Tablet, 200 MG PO TID, TAB 10/12/24 Tamsulosin HCl (Flomax) 0.4 Mg Cap.er.24h, 0.4 MG PO DAILY, CAPSULE.DR 10/12/24 Carbidopa/Levodopa (Carbidopa-Levo 25-100 mg Odt) 25 Mg-100 Mg Tab.rapdis, 1 EACH PO DAILY, #2 TAB 10/12/24 Simvastatin (Simvastatin) 40 Mg Tablet, 40 MG PO DAILY, #0.5 TAB 10/12/24 Rivastigmine (Rivastigmine) 9.5 Mg/24 Hour Patch.td24, 1 EACH TD DAILY 10/12/24 Melatonin (Melatonin) 3 Mg Capsule, 3 MG PO DAILY, #2 CAP 10/12/24 Famotidine (Famotidine) 20 Mg Tablet, 20 MG PO DAILY, TAB 10/12/24 Time spent arranging discharge: 31-60 minutes VARUN SALAZAR MD Oct 22, 2024 14:17
--- NOTE | 2024-10-22 14:30 | NUR ---
Attempted Report to [facility] at [facility] took this development writer's spectra link phone number. As per the nursing, "we will call you back".
--- NOTE | 2024-10-22 16:25 | NUR ---
Report to [place] Chart is copied and report is given to JESSE Hines at [facility]. EMS was then called to trasport the patient. The [facility] was notified and updated on the transfer.
--- NOTE | 2024-10-22 19:06 | NUR ---
DC PLAN SPOKE TO SS SAID PATIENT ACCEPTED TO [facility] AND [facility] JUST PENDING DME TO BE DELIVERED. PER NURSE DME DELIVERED. EMS SET UP FOR PATIENT ON HOSPICE. Addendum: 10/22/24 at 1910 by KORINA FELICIANO RN CM Amended: Links added.
== END 2024-10-22 22:20 | disposition hospice, inpatient (51) | DRG 871 ==
LOC: EDH 09:28 → EDHIP 12:23 → 2AH 10-12 16:35 → 3AH 10-16 22:35
PROVIDERS: ADMIT Internal Medicine; ATTEND Internal Medicine
PROC: 5A09357 Assistance with Respiratory Ventilation, Less than 24 Consecutive Hours, Continuous Positive Airway Pressure (ICD-10-PCS; principal; 2024-10-15)
DX: A41.51 Sepsis due to Escherichia coli [E. coli] (principal); G93.41 Metabolic encephalopathy; J96.01 Acute respiratory failure with hypoxia; J69.0 Pneumonitis due to inhalation of food and vomit; M62.82 Rhabdomyolysis; N39.0 Urinary tract infection, site not specified; E11.9 Type 2 diabetes mellitus without complications; E78.5 Hyperlipidemia, unspecified; G20.A1 Parkinson's disease without dyskinesia, without mention of fluctuations; Z68.22 Body mass index [BMI] 22.0-22.9, adult; N40.0 Benign prostatic hyperplasia without lower urinary tract symptoms; Z66 Do not resuscitate; Z51.5 Encounter for palliative care; F02.80 Dementia in other diseases classified elsewhere, unspecified severity, without behavioral disturbance, psychotic disturbance, mood disturbance, and anxiety; G31.83 Neurocognitive disorder with Lewy bodies; R65.20 Severe sepsis without septic shock; I10 Essential (primary) hypertension; K21.9 Gastro-esophageal reflux disease without esophagitis; E66.9 Obesity, unspecified; Z96.653 Presence of artificial knee joint, bilateral; R13.12 Dysphagia, oropharyngeal phase; Z20.822 Contact with and (suspected) exposure to COVID-19; Z79.84 Long term (current) use of oral hypoglycemic drugs; Z74.01 Bed confinement status; Z99.81 Dependence on supplemental oxygen; Z79.1 Long term (current) use of non-steroidal anti-inflammatories (NSAID); Z79.899 Other long term (current) drug therapy
CPT/HCPCS: 36415; 36600; 70450; 71045; 73080; 74018; 74176; 76705; 80048; 80053; 81001; 82140; 82435; 82550; 82803; 82947; 82948; 83036; 83605; 83735; 83880; 84132; 84145; 84295; 84443; 84484; 85018; 85025; 85610; 85730; 86140; 87040; 87071; 87086; 87186; 87205; 87635; 87804; 92610; 93005; 93306; 94640; 96365; 96375; 99291; A4357; G0378; J0360; J0696; J1644; J1885; J2060; J2270; J2543; J2765; J3370; J3480; J3490; J7030